=== PATIENT | female | born 1980 | race Caucasian/White ===

== ENCOUNTER 2020-11-28 10:52 | Emergency (ER) | payer OTHER, SELFPAY ==
[2020-11-28] VITALS (19 sets, daily range): BP systolic 103–156; BP diastolic 66–93; PULSE 83–93; RESP 18–19; TEMP 36.6–36.8; O2SAT 97–100; BMI 37.8
--- NOTE | 2020-11-28 11:00 | CT_ITS ---
PROCEDURE: CT HEAD/BRAIN WO CON CLINICAL INDICATION: neuro deficit Left-sided numbness COMPARISON: No exams were available for comparison TECHNIQUE: Axial images obtained. All CT scans at the facility use one or more dose reduction, viz: automated exposure control, ma/kV adjustment per patient size (including targeted exams where dose is matched to indication, i.e. head), or iterative reconstruction technique. FINDINGS: No midline shift, mass effect, intracranial hemorrhage, hydrocephalus, or extra-axial fluid collection is evident. Focal low-density changes are present in the posterior horn of the left internal capsule suggesting lacunar infarction. The calvarium has an unremarkable appearance. No mastoid effusion. There is a retention cyst in the sphenoid sinus on the right with mild mucosal thickening of the left sphenoid sinus. 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
--- NOTE | 2020-11-28 11:01 | HMH.EDNEU ---
ED Disposition Clinical Impression: Paresthesia Disposition: Home, Self-Care Condition on Discharge: Good Referrals: Brenna Bains [Primary Care Provider] - 3 days Time of Disposition: 14:44 - Critical Care Critical Care Time: No Attestation: On , the high probability of a clinically significant, sudden or life threatening deterioration of the following system(s) required my full and direct attention, intervention and personal management. The time I documented below is in addition to time spent performing reported procedures but includes the following listed in this critical care notation. Medical Decision Making - Bertin Inquiry Pt receiving controlled substance: No Vital Signs: 11/28/20 10:53 11/28/20 11:28 11/28/20 11:30 Temperature 97.8 F Temperature Source Oral Pulse Rate [Left Radial] 93 H Respiratory Rate 18 Blood Pressure 119/68 Blood Pressure [Right Arm] 156/91 H Blood Pressure Mean 88 Blood Pressure Mean [Right Arm] 112 Blood Pressure Source [Right Arm] Automatic Cuff Blood Pressure Position [Right Arm] Sitting 02 Sat by Pulse Oximetry 98 99 99 Oxygen Delivery Method Room Air 11/28/20 11:45 11/28/20 12:00 11/28/20 12:01 Temperature Temperature Source Pulse Rate [Left Radial] Respiratory Rate Blood Pressure 116/70 Blood Pressure [Right Arm] Blood Pressure Mean 87 Blood Pressure Mean [Right Arm] Blood Pressure Source [Right Arm] Blood Pressure Position [Right Arm] 02 Sat by Pulse Oximetry 99 100 100 Oxygen Delivery Method 11/28/20 12:13 11/28/20 12:15 11/28/20 12:30 Temperature Temperature Source Pulse Rate [Left Radial] Respiratory Rate Blood Pressure 133/73 113/79 Blood Pressure [Right Arm] Blood Pressure Mean 93 90 Blood Pressure Mean [Right Arm] Blood Pressure Source [Right Arm] Blood Pressure Position [Right Arm] 02 Sat by Pulse Oximetry 99 97 97 Oxygen Delivery Method 11/28/20 12:45 11/28/20 13:13 11/28/20 13:15 Temperature Temperature Source Pulse Rate [Left Radial] Respiratory Rate Blood Pressure Blood Pressure [Right Arm] Blood Pressure Mean Blood Pressure Mean [Right Arm] Blood Pressure Source [Right Arm] Blood Pressure Position [Right Arm] 02 Sat by Pulse Oximetry 98 100 98 Oxygen Delivery Method 11/28/20 13:30 11/28/20 13:45 11/28/20 14:00 Temperature Temperature Source Pulse Rate [Left Radial] Respiratory Rate Blood Pressure 103/66 L 114/67 Blood Pressure [Right Arm] Blood Pressure Mean 79 87 Blood Pressure Mean [Right Arm] Blood Pressure Source [Right Arm] Blood Pressure Position [Right Arm] 02 Sat by Pulse Oximetry 99 98 98 Oxygen Delivery Method 11/28/20 14:15 Temperature Temperature Source Pulse Rate [Left Radial] Respiratory Rate Blood Pressure Blood Pressure [Right Arm] Blood Pressure Mean Blood Pressure Mean [Right Arm] Blood Pressure Source [Right Arm] Blood Pressure Position [Right Arm] 02 Sat by Pulse Oximetry 99 Oxygen Delivery Method - Lab Data Lab results reviewed: Yes: I reviewed the patient's lab results. Lab Results 11/28/20 11:05: WBC 10.3, RBC 4.41, Hgb 13.2, Hct 40.9, MCV 92.8, MCH 29.8, MCHC 32.2, RDW 13.8, Plt Count 370, MPV 7.2 L, Neut % (Auto) 63.7, Lymph % (Auto) 28.2, [place] % (Auto) 5.2, Eos % (Auto) 2.5, Baso % (Auto) 0.5, Neut # (Auto) 6.6, Lymph # (Auto) 2.9, [place] # (Auto) 0.5, Eos # (Auto) 0.3, Baso # (Auto) 0.1 11/28/20 11:05: Sodium 138, Potassium 4.3, Chloride 108 H, Carbon Dioxide 24, Anion Gap 10.3, BUN 11, Creatinine 1.10 H, Estimated Creat Clear 108, Estimated GFR 55 L, Est GFR ( Amer) 67, Glucose 83, Calcium 9.2, Total Bilirubin 0.5, AST 22, ALT 11 L, Alkaline Phosphatase 108, Troponin I < 0.01, Total Protein 7.5, Albumin 4.2, Globulin 3.3 H, Albumin/Globulin Ratio 1.3 11/28/20 12:10: Urine Color Yellow, Urine Appearance Sl cloudy, Urine pH 7.
--- NOTE | 2020-11-28 11:18 | PC.NURSE ---
Patient to ct
[2020-11-28 11:20] LABS: Basophils # 0.1 K/mm3 (0-0.2); Basophils % 0.5 % (0.1-2.0); Eosinophils # 0.3 K/mm3 (0.0-0.4); Eosinophils % 2.5 % (0.1-12.0); Hematocrit 40.9 % (37.0-47.0); Hemoglobin 13.2 g/dL (12.2-16.2); Lymphocytes # 2.9 K/mm3 (0.7-4.5); Lymphocytes % 28.2 % (10-50); Mean Corpuscular HGB Conc 32.2 g/dL (31.8-35.4); Mean Corpuscular Hemoglobin 29.8 pg (27.0-31.2); Mean Corpuscular Volume 92.8 fl (81-99); Mean Platelet Volume 7.2 fl (7.4-10.4); Monocytes # 0.5 K/mm3 (0.1-1.0); Monocytes % 5.2 % (1.7-9.3); Neutrophils # 6.6 K/mm3 (1.8-7.8); Neutrophils % 63.7 % (37.0-80.0); Platelet Count 370 K/mm3 (142-424); Red Blood Count 4.41 M/mm3 (4.20-5.40); Red Cell Distribution Width 13.8 % (11.5-17.5); White Blood Count 10.3 K/mm3 (4.8-10.8)
[2020-11-28 11:26] LABS: Alanine Aminotransferase 11 U/L (12-78); Albumin Level 4.2 g/dl (3.5-5.0); Albumin/Globulin Ratio 1.3 (1.1-1.8); Alkaline Phosphatase 108 U/L (38-126); Anion Gap 10.3 mEq/L (5-15); Aspartate Amino Transferase 22 U/L (14-36); Bilirubin,Total 0.5 mg/dl (0.2-1.3); Blood Urea Nitrogen 11 mg/dl (7-17); Calcium 9.2 mg/dl (8.4-10.2); Carbon Dioxide 24 mmol/L (22.0-30.0); Chloride 108 mmol/L (98-107); Creatinine Clearance Estimated 108 mL/min (50-200); Estimated Glomerular Filt Rate 55 ml/min (>60); GFR (African American) 67 ML/MIN (>60); Globulin 3.3 g/dL (1.3-3.2); Glucose 83 mg/dl (74-100); Potassium 4.3 mmoL/L (3.5-5.1); Sodium 138 mmol/L (136-145); Total Protein,Serum 7.5 g/dl (6.3-8.2)
--- NOTE | 2020-11-28 11:29 | ECG_ITS ---
APPROVED REPORT Exam: Resting ECG HR:81 bpm ECG Measurements Heart Rate 81 AXES MN 138 P 75 QRSd 88 QRS 64 QT 366 T 53 QTc 425 Conclusion Normal sinus rhythm Normal ECG Electronically signed by : Pedro Crews, 11/29/2020 19:39:39
[2020-11-28 11:38] LABS: Troponin I < 0.01 ng/ml (0.00-0.034)
--- NOTE | 2020-11-28 12:06 | CT_ITS ---
Procedure: CT ANGIO NECK CLINICAL HISTORY: neuro deficit Left-sided numbness COMPARISON: CT CT ANGIO HEAD from 11/28/2020 TECHNIQUE: IV Contrast: 100ml Isovue 370 Axial images obtained with sagittal and coronal reformats. All CT scans at the facility use one or more dose reduction, viz: automated exposure control, ma/kV adjustment per patient size (including targeted exams where dose is matched to indication, i.e. head), or iterative reconstruction technique. FINDINGS: CTA neck: The aortic arch and great vessels have an unremarkable appearance. Right common carotid artery is unremarkable. There is a kink with tortuosity in the mid aspect of the right internal carotid artery at the C2 level. This is of questionable clinical significance. No evidence of dissection cannot. The degree of narrowing here is felt to be greater than 50 percent with some poststenotic dilatation. The left common carotid is unremarkable. There is some tortuosity of the left internal carotid also with some kinking proximally but no significant stenosis or poststenotic dilatation. 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 The right vertebral artery is somewhat small as well. No evidence of vertebral dissection. CT angio head: No aneurysm, arteriovenous malformation, dissection, or AVM apparent. There is a persistent origin of the right posterior cerebral artery as a normal variant. There is a 1.4 cm hypodense nodule in the right lobe of the thyroid gland. Scattered small cervical lymph nodes are present. Sebaceous cyst is present along the angle of the mandible on the right at 11 mm. There is a retention cyst in the left maxillary sinus. No enhancing lesions are evident. No evidence of sinus thrombosis IMPRESSION: 1. Tortuosity with kinking of the right internal carotid artery at the C2 level causing at least 50 percent stenosis with mild poststenotic dilatation. This is of questionable clinical significance. No atheromatous plaque evident. No dissection. There is mild kinking of the left internal carotid artery without significant stenosis. 2. No aneurysm AVM or intracranial occlusive process. 3. 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 Dictated by: Ramakrishna Yanes MD 11/28/2020 13:50 Ramakrishna Yanes MD in [facility] 11/28/2020 13:50
--- NOTE | 2020-11-28 12:08 | PC.NURSE ---
Patient ambulated to and from bathroom at this time without difficulty.
[2020-11-28 12:22] LABS: Microscopic, Urine URINE MICROSCOPIC (MICROSCOPIC)
[2020-11-28 12:26] LABS: Appearance,Urine SL CLOUDY (Clear); Bilirubin,Urine Negative (Negative); Blood, Urine 3+ (Negative); Color,Urine YELLOW (Yellow); Glucose,Urine (UA) Negative (Negative); Ketones,Urine Negative (Negative); Leukocyte Esterase,Urine TRACE (Negative); Nitrate,Urine Negative (Negative); Protein,Urine Negative (Negative); Urobilinogen,Urine 0.2 EU/dl (0.2)
[2020-11-28 12:37] LABS: Bacteria,Urine 3+ /lpf; RBC,Urine Occasional #/hpf (0-3)
--- NOTE | 2020-11-28 12:53 | PC.NURSE ---
Patient back to ct at this time.
--- NOTE | 2020-11-28 13:12 | PC.NURSE ---
Patient back from ct at this time.
--- NOTE | 2020-11-28 14:28 | PC.NURSE ---
MD at bedside discussing care.
[2021-02-27 12:20] LABS: POC Glucose,Bedside 75 (70-110)
== END 2020-11-28 14:50 | disposition home or self-care (01) ==
PROVIDERS: Emergency Provider Family Medicine; PCP Nurse Practitioner Family
DX: R20.2 Paresthesia of skin (principal); R20.0 Anesthesia of skin; R51.9 Headache, unspecified; F17.210 Nicotine dependence, cigarettes, uncomplicated
CPT/HCPCS: 70450; 70496; 70498; 80053; 81001; 82962; 84484; 85025; 87086; 87088; 87186; 93005; 99283; Q9967

== ENCOUNTER 2020-12-06 13:44 | Outpatient (RCR) | payer OTHER, SELFPAY | END 2021-01-10 08:56 | disposition home or self-care (01) | LOC: OT 13:44 | PROVIDERS: PCP Nurse Practitioner Family; Visit Provider Nurse Practitioner Family | DX: I63.9 Cerebral infarction, unspecified (principal) | CPT/HCPCS: 97165 ==

== ENCOUNTER 2021-03-07 19:34 | Emergency (ER) | payer OTHER, SELFPAY ==
[2021-03-07] VITALS (7 sets, daily range): BP systolic 114–161; BP diastolic 78–97; PULSE 73–103; RESP 13–21; TEMP 36.5–36.6; O2SAT 96–99; BMI 37.8
--- NOTE | 2021-03-07 19:44 | ECG_ITS ---
APPROVED REPORT Exam: Resting ECG HR:98 bpm ECG Measurements Heart Rate 98 AXES ND 130 P 48 QRSd 84 QRS 30 QT 356 T 49 QTc 454 Conclusion Normal sinus rhythm Nonspecific ST abnormality Abnormal ECG Electronically signed by : Pedro Crews, 03/08/2021 17:37:53
--- NOTE | 2021-03-07 20:00 | CT_ITS ---
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 Radiation optimization: All CT scans at this facility use at least one of these dose optimization techniques: automated exposure control; mA and/or kV adjustment per patient size (includes targeted exams where dose is matched to clinical indication); or iterative reconstruction. COMPARISON: 1. CT HEAD/BRAIN WO CON 11/28/2020 11:[address] ANGIO HEAD 11/28/2020 12:58 PM FINDINGS: Normal appearing brain parenchyma without intraparenchymal hemorrhage and normal faustin-white matter differentiation/no obvious acute ischemic stroke. No intra-or extra-axial fluid collection, no supra-or infratentorial mass, no mass effect or midline shift. . Ventricles, sulci and basal cisterns are normal in size without hydrocephalus. Skull bones are normal. Mild sinonasal mucoperiosteal thickening. No mastoid effusion. IMPRESSION: No evidence of an acute intracranial hemorrhage, mass lesion or obvious acute ischemic infarction. COMMENTS: Recommend followup with MRI if persistent/new or worsening symptoms.
--- NOTE | 2021-03-07 20:04 | XR_ITS ---
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 Views: 2 views. COMPARISON: No relevant prior studies available. FINDINGS: Unremarkable appearing lungs and mediastinum. No effusion or pneumothorax. Cardiomediastinal silhouette is normal. IMPRESSION: No active lung parenchymal lesion.
--- NOTE | 2021-03-07 20:04 | CT_ITS ---
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 3D rendering (Not supervised by radiologist): MIP and/or 3D reconstructed images were created by the technologist. Radiation optimization: All CT scans at this facility use at least one of these dose optimization techniques: automated exposure control; mA and/or kV adjustment per patient size (includes targeted exams where dose is matched to clinical indication); or iterative reconstruction. Contrast material: ISOVUE 370; Contrast volume: 70 ml; Contrast route: INTRAVENOUS (IV); COMPARISON: No relevant prior studies available. FINDINGS: CT ANGIOGRAM: Suboptimal study due to extensive respiratory/cardiac motion. The main, right, and left pulmonary arteries and their visualized central branches show normal enhancement. No thoracic aortic aneurysm or dissection. . LUNGS/PLEURA: No focal area of consolidation and no lung mass. No obstructive endobronchial mass or abnormality. No pleural effusion or pneumothorax. . MEDIASTINUM: Heart size is normal, no pericardial effusion. Calcific granulomatous LEFT hilar lymph nodes. Normal size and mildly enlarged likely reactive axillary lymph nodes. . OTHER STRUCTURES: Small hiatal hernia with wall thickening of the distal thoracic esophagus suggestive of esophagitis/reflux. Mild degenerative changes in the visualized spine. IMPRESSION: 1. Suboptimal study without evidence of acute central pulmonary thromboembolism. 2. Unremarkable lungs and mediastinum without consolidation or effusion. 3. Other nonemergent/incidental findings as described.
[2021-03-07 20:11] LABS: Basophils # 0.1 K/mm3 (0-0.2); Basophils % 0.6 % (0.1-2.0); Eosinophils # 0.4 K/mm3 (0.0-0.4); Eosinophils % 3.3 % (0.1-12.0); Hematocrit 41.5 % (37.0-47.0); Hemoglobin 13.8 g/dL (12.2-16.2); Lymphocytes # 3.4 K/mm3 (0.7-4.5); Lymphocytes % 27.7 % (10-50); Mean Corpuscular HGB Conc 33.3 g/dL (31.8-35.4); Mean Corpuscular Hemoglobin 30.3 pg (27.0-31.2); Mean Corpuscular Volume 91.1 fl (81-99); Mean Platelet Volume 7.1 fl (7.4-10.4); Monocytes # 0.8 K/mm3 (0.1-1.0); Neutrophils # 7.8 K/mm3 (1.8-7.8); Neutrophils % 62.5 % (37.0-80.0); Platelet Count 395 K/mm3 (142-424); Red Blood Count 4.56 M/mm3 (4.20-5.40); Red Cell Distribution Width 13.1 % (11.5-17.5); White Blood Count 12.5 K/mm3 (4.8-10.8)
[2021-03-07 20:18] LABS: Alanine Aminotransferase 14 U/L (12-78); Albumin Level 4.5 g/dl (3.5-5.0); Alkaline Phosphatase 114 U/L (38-126); Anion Gap 12.3 mEq/L (5-15); Aspartate Amino Transferase 20 U/L (14-36); Bilirubin,Direct 0.3 mg/dl (0.0-0.4); Bilirubin,Indirect 0.2 mg/dL (0.0-0.9); Bilirubin,Total 0.5 mg/dl (0.2-1.3); Bilirubin,Unconjugated 0.3 mg/dL (0.0-1.1); Blood Urea Nitrogen 10 mg/dl (7-17); Calcium 9.3 mg/dl (8.4-10.2); Carbon Dioxide 31 mmol/L (22.0-30.0); Chloride 101 mmol/L (98-107); Creatinine Clearance Estimated 132 mL/min (50-200); Estimated Glomerular Filt Rate 70 ml/min (>60); GFR (African American) 84 ML/MIN (>60); Glucose 80 mg/dl (74-100); Potassium 4.3 mmoL/L (3.5-5.1); Sodium 140 mmol/L (136-145); Total Protein,Serum 7.9 g/dl (6.3-8.2)
[2021-03-07 20:23] LABS: C-Reactive Protein 20.6 mg/L (0-4)
[2021-03-07 20:33] LABS: Troponin I < 0.01 ng/ml (0.00-0.034)
[2021-03-07 20:37] LABS: Procalcitonin 0.063 ng/mL (0.0-2.0)
[2021-03-07 20:44] LABS: Erythrocyte Sedimentation Rate 22 mm/hr (0-20)
[2021-03-07 20:50] LABS: HCG Qualitative, Serum Negative (Negative)
--- NOTE | 2021-03-07 20:58 | [facility]H.EDNEU ---
ED Disposition Clinical Impression: Numbness and tingling of right lower extremity Disposition: Home, Self-Care Condition on Discharge: Good Instructions: DI for Numbness/Tingling Additional Instructions: call pcp and dr rand in am Referrals: Brenna Bains [Primary Care Provider] - Latisha Rand MD [Staff Physician] - - Critical Care Critical Care Time: No Attestation: On 03/07/21, the high probability of a clinically significant, sudden or life threatening deterioration of the following system(s) required my full and direct attention, intervention and personal management. The time I documented below is in addition to time spent performing reported procedures but includes the following listed in this critical care notation. Medical Decision Making - Medical Records Medical records reviewed: Yes: I reviewed the patient's medical records. - Bertin Inquiry Pt receiving controlled substance: No Vital Signs: 03/07/21 19:35 03/07/21 20:00 03/07/21 20:45 Temperature 97.7 F Temperature Source Oral Pulse Rate 103 H 86 Pulse Rate [Left Radial] 98 H Respiratory Rate 14 21 Blood Pressure 161/95 H 127/82 Blood Pressure [Right Arm] 143/84 H Blood Pressure Mean [Right Arm] 103 Blood Pressure Source [Right Arm] Automatic Cuff Blood Pressure Position [Right Arm] Sitting 02 Sat by Pulse Oximetry 97 96 97 Oxygen Delivery Method Room Air 03/07/21 21:00 Temperature Temperature Source Pulse Rate 89 Pulse Rate [Left Radial] Respiratory Rate 16 Blood Pressure 128/83 Blood Pressure [Right Arm] Blood Pressure Mean [Right Arm] Blood Pressure Source [Right Arm] Blood Pressure Position [Right Arm] 02 Sat by Pulse Oximetry 97 Oxygen Delivery Method - Lab Data Lab results reviewed: Yes: I reviewed the patient's lab results. Lab Results 03/07/21 20:03: WBC 12.5 H, RBC 4.56, Hgb 13.8, Hct 41.5, MCV 91.1, MCH 30.3, MCHC 33.3, RDW 13.1, Plt Count 395, MPV 7.1 L, Neut % (Auto) 62.5, Lymph % (Auto) 27.7, [place] % (Auto) 6.0, Eos % (Auto) 3.3, Baso % (Auto) 0.6, Neut # (Auto) 7.8, Lymph # (Auto) 3.4, [place] # (Auto) 0.8, Eos # (Auto) 0.4, Baso # (Auto) 0.1 03/07/21 20:03: Sodium 140, Potassium 4.3, Chloride 101, Carbon Dioxide 31 H, Anion Gap 12.3, BUN 10, Creatinine 0.90, Estimated Creat Clear 132, Estimated GFR 70, Est GFR ( Amer) 84, Glucose 80, Calcium 9.3, Total Bilirubin 0.5, Direct Bilirubin 0.3, Conjugated Bilirubin 0.0, Indirect Bilirubin 0.2, Unconjugated Bilirubin 0.3, AST 20, ALT 14, Alkaline Phosphatase 114, Troponin I < 0.01, C-Reactive Protein 20.6 H, Total Protein 7.9, Albumin 4.5 03/07/21 20:03: Serum HCG, Qual Negative 03/07/21 20:03: ESR 22 H 03/07/21 20:03: Procalcitonin 0.063 Result diagrams: 03/07/21 20:03 03/07/21 20:03 Orders (Tests/Meds): ED MEDICATIONS Discontinued Medications Generic Name Dose Route Start Last Admin Trade Name Freq PRN Reason Stop Dose Admin Iopamidol 70 ml 03/07/21 20:30 03/07/21 20:31 Iopamidol-370 (76%);100ml Bottle IV 03/07/21 20:31 70 ml ONCE ONE Administration Sodium Chloride 40 ml 03/07/21 20:30 03/07/21 20:31 0.9 % Sodium Chloride 50 Ml Vial IV 03/07/21 20:31 40 ml ONCE ONE Administration Sodium Chloride 10 ml 03/07/21 20:30 03/07/21 20:31 Sodium Chloride 0.9% 10ml Syr (Rad Only) IV 03/07/21 20:31 10 ml ONCE ONE Administration ORDERS Category Date Time Status Troponin I Q3H Lab 03/07/21 23:15 Ordered Troponin I Q3H Lab 03/08/21 02:15 Ordered - Radiology Data #1 Image(s): Chest Image Reviewed: Yes I reviewed the patient's radiology image Preliminary Findings: Normal/NAD - CT Data CT Scan: Head, Chest Time Received: 22:[address] Reviewed: Yes: I have viewed the radiologist's interpretation Preliminary Findings: Normal/NAD - Physician Consults Physician Consulted: nash - neuro Reason -: Pt condition Medical Decision Narrative: has complex neuro sx and need n
== END 2021-03-07 22:31 | disposition home or self-care (01) ==
PROVIDERS: Emergency Provider Emergency Medicine; PCP Nurse Practitioner Family
DX: R20.2 Paresthesia of skin (principal); R20.0 Anesthesia of skin; R51.9 Headache, unspecified; F17.210 Nicotine dependence, cigarettes, uncomplicated
CPT/HCPCS: 70450; 71046; 71275; 80048; 80076; 84145; 84484; 84703; 85025; 85651; 86140; 93005; 96374; 96375; 99282; Q9967

== ENCOUNTER → 2021-03-09 10:40 | Outpatient (CLI) | payer OTHER, SELFPAY ==
[2021-03-09 11:52] LABS: T4 (Thyroxine) 9.3 ug/dl (5.53-11.0)
[2021-03-09 12:06] LABS: Thyroid Stimulating Hormone 3.85 uIU/mL (0.465-4.68)
[2021-03-09 12:41] LABS: Vitamin B12 200 pg/mL (239-931)
[2021-03-09 12:46] LABS: Folate 5.29 ng/mL
[2021-03-10 11:23] LABS: Triiodothyronine (T3) Free 3.2 pg/mL (2.0-4.4)
[2021-03-13 10:12] LABS: Zinc 79 ug/dL (44-115)
== END ==
PROVIDERS: Visit Provider Specialist
DX: E04.9 Nontoxic goiter, unspecified (principal); R63.5 Abnormal weight gain; L80 Vitiligo; M54.2 Cervicalgia; R20.0 Anesthesia of skin; R20.2 Paresthesia of skin; R29.2 Abnormal reflex; R51.9 Headache, unspecified
CPT/HCPCS: 82525; 82607; 82746; 84436; 84443; 84481; 84630

== ENCOUNTER → 2021-03-13 11:51 | Outpatient (CLI) | payer OTHER, SELFPAY ==
[2021-03-14 14:33] LABS: Antiparietal Cell Antibody 1.5 Units (0.0-20.0)
== END ==
PROVIDERS: Visit Provider Specialist
DX: E53.8 Deficiency of other specified B group vitamins (principal); R51.9 Headache, unspecified; R20.0 Anesthesia of skin; R20.2 Paresthesia of skin
CPT/HCPCS: 36415; 83516; 86340

== ENCOUNTER → 2021-03-20 07:43 | Outpatient (CLI) | payer OTHER, SELFPAY ==
--- NOTE | 2021-03-20 07:43 | MR_ITS ---
PROCEDURE: MR CERVICAL SPINE WO CON CLINICAL INDICATION: neck pain, brisk reflexes Headaches. Bilateral arm tingling/numbness COMPARISON: No exams were available for comparison TECHNIQUE: Standard multiplanar multiecho sequences are performed without contrast. 3-D MIP and myelographic images are also rendered and reviewed FINDINGS: There is considerable motion artifact which limits the exam and obscures fine detail. There is slight reversal of the cervical lordosis. C2-C3: Unremarkable. C3-C4: Minimal bulging disc with mild right foraminal narrowing from uncovertebral hypertrophy. C4-C5: Mild bulging disc with mild right-sided foraminal narrowing from uncovertebral hypertrophy. There is narrowing of the canal at this level at 10 mm but no cord impingement. C5-C6: Unremarkable. C6-C7: Unremarkable. IMPRESSION: Considerable motion artifact which limits this exam. Consider repeating at no additional charge for better evaluation. C3-C4: Minimal bulging disc with mild right foraminal narrowing from uncovertebral hypertrophy. C4-C5: Mild bulging disc with mild right-sided foraminal narrowing from uncovertebral hypertrophy. There is narrowing of the canal at this level at 10 mm but no cord impingement. No obvious disc herniation. Dictated by: Ramakrishna Yanes MD 03/21/2021 09:42 Ramakrishna Yanes MD in [facility] 03/21/2021 09:42
--- NOTE | 2021-03-20 07:44 | MR_ITS ---
PROCEDURE: MR HEAD/BRAIN WO CON CLINICAL INDICATION: CEREBRAL INFARCTION Headaches. Dizziness. Tremors. Unbalanced. CVA in November. COMPARISON: CT CT HEAD/BRAIN WO CON from 03/07/2021 TECHNIQUE: Routine multiplanar multi echo sequences are performed without gadolinium enhancement. FINDINGS: No midline shift, mass effect, intracranial hemorrhage, or hydrocephalus is evident. No areas of restricted diffusion that would indicate an acute infarction. The cerebellopontine angles, cerebellum, midbrain, and brainstem have an unremarkable appearance. A small nonspecific T2 hyperintensity is present in the white matter in the right frontal area. This is of questionable clinical significance. The white matter has an otherwise unremarkable appearance. The pituitary, optic chiasm, corpus callosum, and craniocervical junction have an unremarkable appearance. Hippocampal gyri and temporal horns have an unremarkable appearance There is opacification of the right sphenoid sinus posteriorly and may represent a retention cyst at 1 cm with mucosal thickening of the inferior aspect of the sphenoid sinus. 15 mm retention cyst noted in the left maxillary sinus. No mastoid effusion. IMPRESSION: No acute intracranial findings. Nonspecific small T2 white matter hyperintensity in the right frontal lobe approximately 3 x 1 mm suggesting a small gliotic focus. Sinus disease Dictated by: Ramakrishna Yanes MD 03/21/2021 09:02 Ramakrishna Yanes MD in [facility] 03/21/2021 09:02
--- NOTE | 2021-03-20 09:33 | US_ITS ---
PROCEDURE: US THYROID CLINICAL INDICATION: enlarged thyroid COMPARISON: No exams were available for comparison FINDINGS: Right lobe: 4.5 x 1.4 x 2.1 cm. 2 mm cyst is present in the mid polar region. In the mid pole there is a 1 by 1.6 cm slightly hypoechoic nodule with increased echogenicity some of the center. The nodule is wider than tall and is well-circumscribed without calcifications. Left lobe: 4.6 x 1.5 x 1.9 cm. Well-circumscribed 5 mm hypoechoic nodule upper pole Isthmus: Unremarkable Additional findings: IMPRESSION: Mildly prominent thyroid gland with 2 nodules on the right and 1 on the left. The largest nodule on the right is TR level 3 less than 2.5 cm. Recommend annual follow-up Dictated by: Ramakrishna Yanes MD 03/20/2021 16:07 Ramakrishna Yanes MD in [facility] 03/20/2021 16:07
== END ==
PROVIDERS: PCP Nurse Practitioner Family; Visit Provider Specialist
DX: R51.9 Headache, unspecified (principal); M54.2 Cervicalgia; E04.9 Nontoxic goiter, unspecified; L80 Vitiligo; R20.0 Anesthesia of skin; R20.2 Paresthesia of skin; R29.2 Abnormal reflex
CPT/HCPCS: 70551; 72141; 76376; 76536

== ENCOUNTER → 2021-03-22 10:43 | Outpatient (CLI) | payer OTHER, SELFPAY | PROVIDERS: PCP Nurse Practitioner Family; Visit Provider Nurse Practitioner Family | DX: M54.2 Cervicalgia (principal) ==

== ENCOUNTER → 2021-04-05 09:23 | Outpatient (CLI) | payer OTHER, SELFPAY ==
--- NOTE | 2021-04-05 09:23 | MR_ITS ---
PROCEDURE INFORMATION: Exam: MR Thoracic Spine Without Contrast Exam date and time: 04/05/2021 9:23 AM Age: 40 years old Clinical indication: Pain in thoracic spine; Additional info: Gait disturbance, lower extremity numbness. Headache, tremors, body numbness x1yr. Imbalance. Back pain. No prior. TECHNIQUE: Imaging protocol: Multiplanar magnetic resonance images of the thoracic spine without contrast. COMPARISON: MR CERVICAL SPINE WO CON 03/20/2021 8:01 AM FINDINGS: Vertebrae: T9 vertebral body hemangiomas. No acute fracture or malalignment. Spinal cord: Normal signal. No cord compression. Discs/Spinal canal/Neural foramina: Minimal posterior disc bulges at the T6-7 through T11-12 levels, causing minimal ventral thecal sac indentation. No central canal narrowing. Soft tissues: Unremarkable. IMPRESSION: No acute fracture or malalignment.
== END ==
PROVIDERS: PCP Nurse Practitioner Family; Visit Provider Specialist
DX: R20.0 Anesthesia of skin (principal); R20.2 Paresthesia of skin; R26.0 Ataxic gait; R26.89 Other abnormalities of gait and mobility; R29.2 Abnormal reflex; R29.90 Unspecified symptoms and signs involving the nervous system
CPT/HCPCS: 72146

== ENCOUNTER → 2021-06-02 08:10 | Outpatient (CLI) | payer OTHER, SELFPAY ==
--- NOTE | 2021-06-02 08:18 | XR_ITS ---
PROCEDURE: XR CHEST 2V CLINICAL HISTORY: RESPIRATORY DISORDER COMPARISON: CR CXR CHEST(2 VIEWS-NOT PORTABLE) from 01/24/2016 CR XR CHEST 2V from 03/07/[address] ANGIO CHEST from 03/07/2021 FINDINGS: Borderline cardiomegaly without failure. Small implantable cardiac device noted between the right and left atrium. No evidence of CHF. The lungs are clear without infiltrates, suspicious nodules, or pleural effusions. No acute bony abnormalities. IMPRESSION: No change with no acute finding Dictated by: Ramakrishna Yanes MD 06/02/2021 09:46 Ramakrishna Yanes MD in [facility] 06/02/2021 09:46
== END ==
LOC: LAB 08:11 → RAD 08:13
PROVIDERS: Visit Provider Nurse Practitioner Family
DX: Z13.83 Encounter for screening for respiratory disorder NEC (principal)
CPT/HCPCS: 71046

== ENCOUNTER → 2021-06-05 08:08 | Outpatient (CLI) | payer OTHER, SELFPAY ==
[2021-06-09 00:07] LABS: QuantiFERON-TB Gold Plus Negative (Negative)
== END ==
PROVIDERS: Visit Provider Nurse Practitioner Family
DX: Z13.83 Encounter for screening for respiratory disorder NEC (principal)
CPT/HCPCS: 36415; 86480

== ENCOUNTER → 2021-06-29 13:07 | Outpatient (CLI) | payer OTHER, SELFPAY ==
--- NOTE | 2021-06-29 | XR_ITS ---
PROCEDURE: XR KNEE RT 3V CLINICAL INDICATION: PAIN IN RIGHT KNEE COMPARISON: No exams were available for comparison FINDINGS: No fracture or dislocation. No lytic or blastic change. There is normal mineralization. The joint spaces are well-preserved. No significant degenerative/arthritic changes. No erosive changes evident. Other findings:None. IMPRESSION: No acute findings. Dictated by: Ramakrishna Yanes MD 06/29/2021 15:01 Ramakrishna Yanes MD in [facility] 06/29/2021 15:01
--- NOTE | 2021-06-29 13:09 | MR_ITS ---
PROCEDURE: MR LUMBAR SPINE WO CON CLINICAL INDICATION: SPINAL STENOSIS Bilateral leg numbness and tingling to the feet COMPARISON: CT ABDPELW/O CT ABD PELVIS W/O CONTRAST from 01/24/2016 MR MR THORACIC SPINE WO CON from 04/05/2021 TECHNIQUE: Standard multiplanar multiecho sequences are performed without contrast. 3-D MIP and myelographic images are also rendered and reviewed FINDINGS: There is normal alignment. The spinal cord ends at the T12-L1 level. T11-T12: Mild degenerative disc disease with very minimal right paracentral disc protrusion without impingement. Mild right lateral recess narrowing. T12-L1: Unremarkable. L1-L2: Unremarkable. L2-L3: Mild facet and ligamentum hypertrophic change with minimal bilateral lateral recess narrowing. L3-L4: Mild facet and ligamentum hypertrophy. Minimal amount of fluid noted in the facet joint on the right. L4-5: Disc desiccation with bulging disc with minimal left paracentral disc protrusion. Moderate facet and ligamentum hypertrophic change with bilateral lateral recess narrowing left slightly greater than right and mild bilateral foraminal narrowing. Borderline canal stenosis. L5-S1: Minimal bulging disc with facet and ligamentum hypertrophic change with mild bilateral foraminal narrowing. Canal stenosis of 10 mm at this level. No extruded herniated disc. No fracture or dislocation. No bony destructive process evident. Subcutaneous edema noted in the upper lumbar region. IMPRESSION: 1. T11-T12: Mild degenerative disc disease with very minimal right paracentral disc protrusion without impingement. Mild right lateral recess narrowing. 2. L2-L3: Mild facet and ligamentum hypertrophic change with minimal bilateral lateral recess narrowing. The 3. L3-L4: Mild facet and ligamentum hypertrophy. Minimal amount of fluid noted in the facet joint on the right. 4. L4-5: Disc desiccation with bulging disc with minimal left paracentral disc protrusion. Moderate facet and ligamentum hypertrophic change with bilateral lateral recess narrowing left slightly greater than right and mild bilateral foraminal narrowing. Borderline canal stenosis. 5. L5-S1: Minimal bulging disc with facet and ligamentum hypertrophic change with mild bilateral foraminal narrowing. Canal stenosis of 10 mm at this level 6. No extruded herniated disc apparent. Dictated by: Ramakrishna Yanes MD 06/30/2021 08:39 Ramakrishna Yanes MD in [place] 06/30/2021 08:39
== END ==
PROVIDERS: PCP Nurse Practitioner Family; Visit Provider Psychiatry & Neurology Clinical Neurophysiology
DX: M48.061 Spinal stenosis, lumbar region without neurogenic claudication (principal); M25.561 Pain in right knee
CPT/HCPCS: 72148; 73562; 76376

== ENCOUNTER 2021-07-20 08:00 | Outpatient (RCR) | payer OTHER, SELFPAY | END 2021-08-15 16:16 | disposition home or self-care (01) | LOC: PT.CARL 08:00 | PROVIDERS: PCP Nurse Practitioner Family; Visit Provider Psychiatry & Neurology Clinical Neurophysiology | DX: M48.061 Spinal stenosis, lumbar region without neurogenic claudication (principal) | CPT/HCPCS: 97010; 97012; 97014; 97110; 97140; 97163; G0283 ==

== ENCOUNTER → 2021-08-02 09:00 | Outpatient (CLI) | payer OTHER, SELFPAY ==
[2021-08-03 08:14] LABS: FSH 6.7 mIU/mL (.); LH 1.7 mIU/mL (.)
[2021-08-03 15:17] LABS: Anti-Cardio Antibody IgM 12 MPL U/mL (0-12); Anticardiolipin Ab,IgA,Qn <9 APL U/mL (0-11)
== END ==
PROVIDERS: Internal Medicine Hematology & Oncology; Visit Provider Nurse Practitioner Obstetrics & Gynecology
DX: Z01.419 Encounter for gynecological examination (general) (routine) without abnormal findings (principal); D68.61 Antiphospholipid syndrome
CPT/HCPCS: 36415; 83001; 83002; 86147

== ENCOUNTER 2021-10-05 19:25 | Emergency (ER) | payer OTHER, SELFPAY ==
[2021-10-05 20:08] VITALS: BP 136/79; PULSE 78; RESP 20; TEMP 36.7; O2SAT 98; BMI 43.5
--- NOTE | 2021-10-05 20:09 | XR_ITS ---
PROCEDURE INFORMATION: Exam: XR Chest Exam date and time: 10/05/2021 8:09 PM Age: 41 years old Clinical indication: Condition or disease; Other: Patient is covid and flu positive with cough. ; Patient HX: Cough, patient is covid and flu positive. ; Additional info: Cough covid and flu positive TECHNIQUE: Imaging protocol: XR of the chest. Views: 2 views. COMPARISON: CR XR CHEST 2V 06/02/2021 8:21 AM FINDINGS: Lungs: Unremarkable. No consolidation. Pleural spaces: Unremarkable. No pleural effusion. No pneumothorax. Heart/Mediastinum: Unremarkable. No cardiomegaly. Bones/joints: Unremarkable. IMPRESSION: No acute findings.
--- NOTE | 2021-10-05 20:28 | HMH.EDUTC ---
[facility] [place] Disposition Clinical Impression: Influenza, COVID-19 Disposition: Home, Self-Care Condition on Discharge: Good Instructions: Preventing the Spread of Coronavirus Discharge Instructions, DI for COVID-19 (Suspected or Confirmed ), Influenza, DI for Influenza -- Adult Additional Instructions: Drink plenty of fluids. Take tylenol or ibuprofen for pain or fever. Take the medications as directed. Follow up with your regular doctor. GO TO THE ER FOR ANY WORSENING SYMPTOMS The cough medication (promethazine dm) will make you drowsy, so don't drive or operate heavy machinery after taking it. Prescriptions: Promethazine/Dextromethorphan [Promethazine-Dm Syrup] 5 ml PO Q6HP PRN #240 ml PRN Reason: Cough Transmission Status: Pending to [id number] methylPREDNISolone [Medrol] 4 mg PO DIRECTED 6 Days #21 packet Transmission Status: Pending to [id number] Oseltamivir Phosphate [Tamiflu 75mg Capsule] 75 mg PO BID #10 cap Transmission Status: Pending to [id number] Referrals: Brenna Bains [Primary Care Provider] - Time of Disposition: 21:01 Medical Decision Making - Medical Records Medical records reviewed: No: I reviewed the patient's medical records. - Bertin Inquiry Pt receiving controlled substance: No Vital Signs: 10/05/21 20:08 Temperature 98.1 F Temperature Source Oral Pulse Rate [Left] 78 Respiratory Rate 20 Blood Pressure [Right Arm] 136/79 Blood Pressure Mean [Right Arm] 98 02 Sat by Pulse Oximetry 98 [facility] [place] HPI - General Stated complaint: Covid +, cough,congestion Time Seen by Provider: 10/05/21 20:28 Mode of Arrival: Ambulatory Source of Information: Patient Limitations: No Limitations Description of Symptoms (Recalled from Triage Doc. by RN): PT HAD A POSITIVE FLU B AND COVID TEST YESTERDAY. PT C/O TIGHTNESS WITH A COUGH SINCE THIS AM. HEENT Symptoms (Recalled from RN notes): Yes Resp Symptoms (Recalled from RN notes): Yes Skin Symptoms (Recalled from RN notes): No MS Symptoms (Recalled from RN notes): No Functional Status (Recalled from RN notes): WNL - History of Present Illness Provider Complaint: She tested positive for covid and influenza yesterday. Today, she is having a cough, chest tightness and fever. - Related Data Home Medications Medication Instructions Recorded Confirmed levonorgestrel 20 mcg/24 hours (7 INTRAUTERI each 03/05/19 07/11/21 yrs) 52 mg intrauterine device aspirin 81 mg tablet,delayed 81 mg PO DAILY 03/09/21 07/11/21 release atorvastatin 40 mg tablet 40 mg PO HS tab 03/09/21 07/11/21 citalopram 20 mg tablet 20 mg PO DAILY tab 03/09/21 07/11/21 clopidogrel 75 mg tablet 75 mg PO DAILY tab 03/09/21 07/11/21 gabapentin 300 mg capsule 300 mg PO cap 04/12/21 07/11/21 indomethacin 25 mg capsule 25 mg PO cap 04/12/21 07/11/21 propranolol 40 mg tablet 40 mg PO tab 05/18/21 07/11/21 cetirizine 10 mg tablet 10 mg PO tab 07/11/21 07/11/21 Previous Rx's Medication Instructions Recorded Ondansetron [Zofran 4mg ODT] 4 mg PO Q8HP PRN #20 tab.rapdis 05/10/19 fluticasone propionate 50 2 spray INTRANASAL BID #16 g 04/12/21 mcg/actuation nasal spray,suspension Oseltamivir Phosphate [Tamiflu 75 mg PO BID #10 cap 10/05/21 75mg Capsule] Promethazine/Dextromethorphan 5 ml PO Q6HP PRN #240 ml 10/05/21 [Promethazine-Dm Syrup] methylPREDNISolone [Medrol] 4 mg PO DIRECTED 6 Days #21 10/05/21 packet Allergies Allergy/AdvReac Type Severity Reaction Status Date / Time No Known Allergies Allergy Verified 07/11/21 09:53 - Worker's Comp Is this a Worker's Comp case?: No H History - Hepatitis A Screen Drug use history?: No High risk sexual behaviors?: No History of sexually transmitted infection?: No Currently employed?: No Childcare worker?: No Do you have indoor plumbing?: Yes Do you have electricity?: Yes Attestation statement:: This patient has been screened for Hepatit
[2021-10-05 21:08] VITALS: BP 136/79; PULSE 78; RESP 20; TEMP 36.7
== END 2021-10-05 21:09 | disposition home or self-care (01) ==
PROVIDERS: Emergency Provider Nurse Practitioner Family; PCP Nurse Practitioner Family
DX: J10.1 Influenza due to other identified influenza virus with other respiratory manifestations (principal); U07.1 COVID-19; F41.9 Anxiety disorder, unspecified; E78.5 Hyperlipidemia, unspecified
CPT/HCPCS: 71046; 99202; G0463

== ENCOUNTER 2021-10-11 12:29 | Emergency (ER) | payer OTHER, SELFPAY ==
[2021-10-11 12:31] VITALS: BP 124/52; PULSE 81; RESP 18; TEMP 37.1; O2SAT 100; BMI 37.8
[2021-10-11 13:13] VITALS: BMI 37.8
--- NOTE | 2021-10-11 13:13 | XR_ITS ---
FINAL REPORT CLINICAL HISTORY: covid + weakness, soa COMPARISON: 10/05/2021 FINDINGS: SINGLE VIEW CHEST The heart is normal in size. The mediastinum is unremarkable. An Amplatzer device is seen in projection of the cardiac silhouette. The lungs are clear. There is no pneumothorax. IMPRESSION: No acute cardiopulmonary process. Reviewed, Interpreted and Dictated by Lennox Carey MD Transcribed by Tiana Madden Authenticated by Lennox Carey MD on 10/11/2021 03:50:51 PM [facility]
[2021-10-11 13:26] LABS: Chloride 102 mmol/L (98-107); Potassium 3.6 mmoL/L (3.5-5.1); Sodium 140 mmol/L (136-145)
[2021-10-11 13:27] LABS: Basophils # 0.2 K/mm3 (0-0.2); Basophils % 1.1 % (0.1-2.0); Eosinophils # 0.2 K/mm3 (0.0-0.4); Eosinophils % 1.3 % (0.1-12.0); Hematocrit 42.9 % (37.0-47.0); Lymphocytes # 2.8 K/mm3 (0.7-4.5); Lymphocytes % 21.2 % (10-50); Mean Corpuscular HGB Conc 32.6 g/dL (31.8-35.4); Mean Corpuscular Hemoglobin 31.2 pg (27.0-31.2); Mean Corpuscular Volume 95.7 fl (81-99); Mean Platelet Volume 8.2 fl (7.4-10.4); Monocytes # 0.7 K/mm3 (0.1-1.0); Monocytes % 5.5 % (1.7-9.3); Neutrophils # 9.3 K/mm3 (1.8-7.8); Neutrophils % 70.9 % (37.0-80.0); Platelet Count 368 K/mm3 (142-424); Red Blood Count 4.48 M/mm3 (4.20-5.40); Red Cell Distribution Width 13.9 % (11.5-17.5); White Blood Count 13.1 K/mm3 (4.8-10.8)
[2021-10-11 13:29] LABS: Alanine Aminotransferase 15 U/L (12-78); Albumin Level 4.2 g/dl (3.5-5.0); Albumin/Globulin Ratio 1.5 (1.1-1.8); Alkaline Phosphatase 104 U/L (38-126); Anion Gap 9.6 mEq/L (5-15); Aspartate Amino Transferase 20 U/L (14-36); Bilirubin,Total 0.7 mg/dl (0.2-1.3); Blood Urea Nitrogen 11 mg/dl (7-17); Carbon Dioxide 32 mmol/L (22.0-30.0); Creatinine Clearance Estimated 131 mL/min (50-200); Estimated Glomerular Filt Rate 69 ml/min (>60); GFR (African American) 84 ML/MIN (>60); Globulin 2.8 g/dL (1.3-3.2)
[2021-10-11 13:30] LABS: Calcium 8.8 mg/dl (8.4-10.2); Glucose 98 mg/dl (74-100)
--- NOTE | 2021-10-11 13:35 | HMH.EDGENADL ---
ED Disposition Clinical Impression: COVID-19 virus infection, Influenza B Vomiting Qualifiers: Vomiting type: unspecified Nausea presence: with nausea Qualified Code(s): R11.2 - Nausea with vomiting, unspecified Disposition: Home, Self-Care Condition on Discharge: Fair Instructions: DI for Influenza -- Adult, DI for Vomiting -- Adult, DI for COVID-19 (Suspected or Confirmed ) Additional Instructions: Phenergan suppositories as needed for nausea and vomiting. Rest, drink plenty of fluids. Tylenol or Ibuprofen for fever and/or aches and pains. Monitor your symptoms. IF YOU HAVE AN EMERGENCY WARNING SIGN (INCLUDING TROUBLE BREATHING), SEEK EMERGENCY MEDICAL CARE IMMEDIATELY. COVID-19 Isolation: People with COVID-19 should isolate for 5 days. Then if they are asymptomatic (no symptoms) or their symptoms are resolving (without fever for 24 hours), follow that by 5 days of wearing a mask when around others to minimize the risk of infecting people you encounter. If you test positive for COVID-19 and never develop symptoms, day 0 is the day of your positive viral test (based on the date you were tested) and day 1 is the first full day after your positive test. If you develop symptoms after testing positive, your 5-day isolation period must start over. Day 0 is your first day of symptoms. Day 1 is the first full day after your symptoms developed. What to do: Stay in a separate room from other household members, if possible. Use a separate bathroom, if possible. Avoid contact with other members of the household and pets. Don?t share personal household items, like cups, towels, and utensils. Wear a mask when around other people if able. Prescriptions: Promethazine HCl [Phenergan 25mg Suppository] 25 mg RC Q6HP PRN #10 supp PRN Reason: Nausea And Vomiting Transmission Status: Pending to [facility]/pharmacy #[id number] Referrals: Brenna Bains [Primary Care Provider] - - Critical Care Critical Care Time: No Attestation: On 10/11/21, the high probability of a clinically significant, sudden or life threatening deterioration of the following system(s) required my full and direct attention, intervention and personal management. The time I documented below is in addition to time spent performing reported procedures but includes the following listed in this critical care notation. Medical Decision Making - Medical Records Medical records reviewed: Yes: I reviewed the patient's medical records. MR Comment: Reviewed urgent treatment center visit 10/05/2021, reports that she had tested positive for influenza B and Covid 19 the day prior. Treated with methylprednisolone, Zofran, Phenergan DM - Bertin Inquiry Pt receiving controlled substance: No Vital Signs: 10/11/21 12:31 Temperature 98.8 F Temperature Source Oral Pulse Rate [Left Radial] 81 Respiratory Rate 18 Blood Pressure [Left Arm] 124/52 L Blood Pressure Mean [Left Arm] 76 Blood Pressure Source [Left Arm] Automatic Cuff Blood Pressure Position [Left Arm] Sitting 02 Sat by Pulse Oximetry 100 Oxygen Delivery Method Room Air - Lab Data Lab Results 10/11/21 13:00: WBC 13.1 H, RBC 4.48, Hgb 14.0, Hct 42.9, MCV 95.7, MCH 31.2, MCHC 32.6, RDW 13.9, Plt Count 368, MPV 8.2, Neut % (Auto) 70.9, Lymph % (Auto) 21.2, [place] % (Auto) 5.5, Eos % (Auto) 1.3, Baso % (Auto) 1.1, Neut # (Auto) 9.3 H, Lymph # (Auto) 2.8, [place] # (Auto) 0.7, Eos # (Auto) 0.2, Baso # (Auto) 0.2 10/11/21 13:00: Sodium 140, Potassium 3.6, Chloride 102, Carbon Dioxide 32 H, Anion Gap 9.6, BUN 11, Creatinine 0.90, Estimated Creat Clear 131, Estimated GFR 69, Est GFR ( Amer) 84, Glucose 98, Calcium 8.8, Total Bilirubin 0.7, AST 20, ALT 15, Alkaline Phosphatase 104, Total Protein 7.0, Albumin 4.2, Globulin 2.8, Albumin/Globulin Ratio 1.5 Result diagrams: 10/11/21 13:00 10/11/21 13:00 Orders (Tests/Meds): ED MEDICATIONS Generic Name Dose Route Start Last Admin Trade Name Freq PRN Reason Stop
[2021-10-11 14:53] VITALS: BP 121/72; PULSE 70; RESP 18; TEMP 37.1; O2SAT 100
== END 2021-10-11 14:53 | disposition home or self-care (01) ==
PROVIDERS: Emergency Provider Emergency Medicine; PCP Nurse Practitioner Family
DX: U07.1 COVID-19 (principal); J10.1 Influenza due to other identified influenza virus with other respiratory manifestations; Z87.891 Personal history of nicotine dependence
CPT/HCPCS: 71045; 80053; 85025; 96365; 96375; 99283; J2405

== ENCOUNTER → 2021-11-20 08:10 | Outpatient (CLI) | payer OTHER, SELFPAY ==
--- NOTE | 2021-11-20 08:11 | MM_ITS ---
PROCEDURE INFORMATION: Exam: MG Bilateral Screening 3D Mammography Exam date and time: 11/20/2021 8:11 AM Age: 41 years old Clinical indication: Encounter for screening mammogram for malignant neoplasm of breast TECHNIQUE: Imaging protocol: Bilateral Screening tomosynthesis and 2D mammography including computer-aided detection (CAD) when performed. COMPARISON: No relevant prior studies available. FINDINGS: MAMMOGRAPHY: Breast composition: The breast tissue is composed of scattered areas of fibroglandular density. Mass: None. Architectural distortion: None. Calcifications: No suspicious calcifications. Asymmetric density: None. Skin thickening: None. Axillary adenopathy: None. IMPRESSION: No mammographic evidence of malignancy. Annual screening is recommended unless otherwise clinically indicated. ASSESSMENT: BI-RADS Category 1: Negative
== END ==
PROVIDERS: PCP Nurse Practitioner Family; Visit Provider Nurse Practitioner Obstetrics & Gynecology
DX: Z12.31 Encounter for screening mammogram for malignant neoplasm of breast (principal)
CPT/HCPCS: 77063; 77067

== ENCOUNTER → 2022-03-15 11:23 | Outpatient (CLI) | payer OTHER, SELFPAY ==
[2022-03-15 12:25] LABS: Basophils % 0.3 % (0.1-2.0); Eosinophils # 0.2 K/mm3 (0.0-0.4); Eosinophils % 1.8 % (0.1-12.0); Hematocrit 40.1 % (37.0-47.0); Hemoglobin 13.7 g/dL (12.2-16.2); Lymphocytes # 2.7 K/mm3 (0.7-4.5); Lymphocytes % 27.7 % (10-50); Mean Corpuscular HGB Conc 34.1 g/dL (31.8-35.4); Mean Corpuscular Hemoglobin 31.2 pg (27.0-31.2); Mean Corpuscular Volume 91.3 fl (81-99); Mean Platelet Volume 7.9 fl (7.4-10.4); Monocytes # 0.7 K/mm3 (0.1-1.0); Monocytes % 7.2 % (1.7-9.3); Neutrophils # 6.2 K/mm3 (1.8-7.8); Neutrophils % 63.1 % (37.0-80.0); Platelet Count 353 K/mm3 (142-424); Red Blood Count 4.39 M/mm3 (4.20-5.40); White Blood Count 9.8 K/mm3 (4.8-10.8)
[2022-03-15 12:35] LABS: Prothrombin Time 10.3 seconds (10.1-12.5)
== END ==
PROVIDERS: PCP Nurse Practitioner Family; Visit Provider Psychiatry & Neurology Neurology
DX: R53.1 Weakness (principal)
CPT/HCPCS: 36415; 85025; 85610; 85730

== ENCOUNTER → 2022-08-01 08:06 | Outpatient (CLI) | payer OTHER, SELFPAY ==
[2022-08-01 09:26] LABS: Erythrocyte Sedimentation Rate 17 mm/hr (0-20)
[2022-08-01 09:34] LABS: Chloride 100 mmol/L (98-107); Sodium 142 mmol/L (136-145)
[2022-08-01 09:35] LABS: Potassium 4.4 mmoL/L (3.5-5.1)
[2022-08-01 09:37] LABS: Alanine Aminotransferase 11 U/L (12-78); Albumin Level 4.2 g/dl (3.5-5.0); Albumin/Globulin Ratio 1.6 (1.1-1.8); Alkaline Phosphatase 110 U/L (38-126); Anion Gap 15.4 mEq/L (5-15); Aspartate Amino Transferase 20 U/L (14-36); Bilirubin,Total 0.5 mg/dl (0.2-1.3); Blood Urea Nitrogen 10 mg/dl (7-17); Carbon Dioxide 31 mmol/L (22.0-30.0); Estimated Glomerular Filt Rate 79 ml/min (>60); GFR (African American) 96 ML/MIN (>60); Globulin 2.6 g/dL (1.3-3.2); Total Protein,Serum 6.8 g/dl (6.3-8.2)
[2022-08-01 09:38] LABS: Calcium 9.2 mg/dl (8.4-10.2); Glucose 80 mg/dl (74-100)
[2022-08-01 09:43] LABS: C-Reactive Protein 10.6 mg/L (0-4)
[2022-08-03 11:42] LABS: Antinuclear Antibodies, IFA Negative (.)
== END ==
PROVIDERS: PCP Family Medicine; Visit Provider Psychiatry & Neurology Neurology
DX: G37.9 Demyelinating disease of central nervous system, unspecified (principal)
CPT/HCPCS: 36415; 80053; 85651; 86038; 86140

== ENCOUNTER → 2022-12-24 07:56 | Outpatient (CLI) | payer OTHER, SELFPAY ==
--- NOTE | 2022-12-24 07:56 | MM_ITS ---
PROCEDURE INFORMATION: Exam: MG Bilateral Screening 3D Mammography Exam date and time: 12/24/2022 7:53 AM Age: 42 years old Clinical indication: Screening. A maternal cousin and maternal great aunt had breast cancer. TECHNIQUE: Imaging protocol: Bilateral Screening tomosynthesis and 2D mammography including computer-aided detection (CAD) when performed. COMPARISON: MG MM DIG SCREENING MAMM BI W/CAD 11/20/2021 8:17 AM FINDINGS: MAMMOGRAPHY: Breast composition: There are scattered areas of fibroglandular density. Mass: None. Architectural distortion: None. Calcifications: No suspicious calcifications. Asymmetric density: None. Skin thickening: None. Axillary adenopathy: None. IMPRESSION: No mammographic evidence of malignancy. Annual screening is recommended unless otherwise clinically indicated. ASSESSMENT: BI-RADS Category 1: Negative
[2022-12-24 09:24] LABS: Chloride 104 mmol/L (98-107); Potassium 4.3 mmoL/L (3.5-5.1); Sodium 140 mmol/L (136-145)
[2022-12-24 09:27] LABS: Alanine Aminotransferase 12 U/L (12-78); Albumin Level 4.2 g/dl (3.5-5.0); Albumin/Globulin Ratio 1.6 (1.1-1.8); Alkaline Phosphatase 120 U/L (38-126); Anion Gap 11.3 mEq/L (5-15); Aspartate Amino Transferase 18 U/L (14-36); Bilirubin,Total 0.7 mg/dl (0.2-1.3); Blood Urea Nitrogen 8 mg/dl (7-17); Carbon Dioxide 29 mmol/L (22.0-30.0); Estimated Glomerular Filt Rate 61 ml/min (>60); GFR (African American) 74 ML/MIN (>60); Globulin 2.7 g/dL (1.3-3.2); Total Protein,Serum 6.9 g/dl (6.3-8.2)
[2022-12-24 09:28] LABS: Calcium 8.9 mg/dl (8.4-10.2); Glucose 86 mg/dl (74-100)
[2022-12-24 09:33] LABS: C-Reactive Protein 19.6 mg/L (0-4)
[2022-12-24 10:10] LABS: Erythrocyte Sedimentation Rate 27 mm/hr (0-20)
[2022-12-29 17:31] LABS: Antinuclear Antibodies (ANA) NEGATIVE
== END ==
PROVIDERS: Psychiatry & Neurology Neurology; PCP Nurse Practitioner; Visit Provider Nurse Practitioner Obstetrics & Gynecology
DX: Z12.31 Encounter for screening mammogram for malignant neoplasm of breast (principal); G37.9 Demyelinating disease of central nervous system, unspecified
CPT/HCPCS: 36415; 77063; 77067; 80053; 85651; 86038; 86140

== ENCOUNTER 2023-02-28 08:00 | Outpatient (RCR) | payer OTHER, SELFPAY | END 2023-04-11 14:55 | disposition home or self-care (01) | LOC: PT 08:00 | PROVIDERS: Visit Provider Psychiatry & Neurology Clinical Neurophysiology | DX: M51.36 Other intervertebral disc degeneration, lumbar region (principal) | CPT/HCPCS: 97010; 97014; 97110; 97112; 97140; 97163; G0283 ==

== ENCOUNTER 2023-12-23 07:56 | Outpatient (CLI) | payer MEDICARE, MEDICAID, SELFPAY ==
--- NOTE | 2023-12-23 07:57 | MM_ITS ---
PROCEDURE INFORMATION: Exam: MG Bilateral Screening 3D Mammography Exam date and time: 12/23/2023 8:00 AM Age: 43 years old Clinical indication: Screening. A maternal cousin and a maternal great aunt had breast cancer. TECHNIQUE: Imaging protocol: Bilateral Screening tomosynthesis and 2D mammography including computer-aided detection (CAD) when performed. COMPARISON: 1. MG MM DIG SCREENING MAMM BI W/CAD 12/24/2022 7:53 AM 2. MG MM DIG SCREENING MAMM BI W/CAD 11/20/2021 8:17 AM FINDINGS: MAMMOGRAPHY: Breast composition: There are scattered areas of fibroglandular density. Mass: None. Architectural distortion: None. Calcifications: No suspicious calcifications. Asymmetric density: None. Skin thickening: None. Axillary adenopathy: None. IMPRESSION: No mammographic evidence of malignancy. Annual screening is recommended unless otherwise clinically indicated. ASSESSMENT: BI-RADS Category 1: Negative
== END 2023-12-23 23:59 ==
LOC: RAD 07:57
PROVIDERS: PCP Nurse Practitioner; Visit Provider Nurse Practitioner Obstetrics & Gynecology
DX: Z12.31 Encounter for screening mammogram for malignant neoplasm of breast (principal)
CPT/HCPCS: 77063; 77067

== ENCOUNTER 2024-02-07 08:44 | Outpatient (POV) | payer MEDICARE, MEDICAID, SELFPAY ==
[2024-02-07 08:57] VITALS: BP 103/62; PULSE 78; RESP 18; O2SAT 97; BMI 35.5
--- NOTE | 2024-02-07 09:03 | A.OFFVIS_ITS ---
HPI Data of Consult Patient: new to practice Consult date: 02/07/24 Requesting Physician: Liset Whaley APRN Primary Care Provider: Joy Dexter APRN Consult Narrative Reason for consult: Chronic neck pain, low back pain, leg pain, buttocks pain History of present illness: Ms. Bustamante is a 43 year old female who presents today as a new patient. She is a referral from Dr. Garza's office. Today she rates her pain a 7 out of 10. Patient states she does have chronic pain in her neck however what she is really seen in our office for is low back, buttocks and leg pain. Patient states has been going on for at least a year unrelated to any specific injury or trauma. Patient does describe it as an aching, throbbing sensation with numbness and tingling that radiates down into her legs. Patient does state the pain just seems to get worse and worse and is interfering with her ability to perform activities of daily living. Patient states that it is worse with increased walking or activity or prolonged positioning such as sitting. Patient states that the only thing that really seem to help over time has been a TENS unit however immediately once stopping the TENS unit the pain comes right back. Patient does state that a lot of her symptoms seem to start after she ended up having a stroke in 2020 and then it progressively worsened from them on. Patient is currently on blood thinner written by her coater smoking pipe at [place]. She states that she was also diagnosed with diastolic heart failure. Patient has tried Tylenol along with heat and ice and topicals with minimal relief. Patient did recently go to physical therapy however this worsened her pain. Patient has tried to continue at home exercising and stretching for longer than 6 weeks with minimal change. Patient is currently managed with gabapentin and tizanidine however notices no additional relief. Patient denies any surgery history for injection history in the past. Her Bertin has been reviewed and is appropriate. CC: Liset Whaley APRN [facility] Disclaimer: The information contained in this section may have been updated after the patient was seen, as this information can be updated by other users. Medical History (Updated 02/07/24 @ 09:25 by Liset Whaley APRN) Coronary arteritis Depression Anxiety Hyperlipidemia Migraines Asthma CVA (cerebral vascular accident) Surgical History PFO (patent foramen ovale) Family History Mother Cancer Grandmother Stroke Grandfather Stroke Social History (Updated 02/07/24 @ 09:14 by Valarie Jerez, RN) Smoking Status: Former smoker tobacco type: cigarettes packs per day: 1 alcohol intake: never substance use type: denies use current occupational status: unemployed Travel in the last 8 weeks: None household members: significant other and children housing: other Review of Systems Review of Systems Review of systems:: pertinent systems reviewed and negative unless documented below Review of systems (narrative): Review of Systems: General: No recent weight changes, no fever, no sleep disturbances Respiratory: No cough, no shortness of air, no recurring pulmonary infections Cardiovascular/peripheral vascular: No chest pain, no palpitations, no edema, no shortness of breath Gastrointestinal: No new onset incontinence, normal bowel movements reported Genitourinary: No new onset incontinence Musculoskeletal: Low back pain, bilateral leg pain, buttocks pain Psychiatric: [Normal mood/affect] Neurological: [Denies weakness in extremities], [denies balance issues] Meds Home Medications and Allergies Home Medications Medication Instructions Recorded Confirmed Type atorvastatin 40 mg tablet 40 mg PO HS 03/09/21 02/07/24 History clopidogrel 75 mg tablet 75 mg PO DAILY 03/09/21 02/07/24 History cetirizine 10 mg tablet 10 mg PO DAILY ALLERGIES 07/11/21 02/07/24 History propranolol 80 mg tablet 80 mg PO BID 06/08/22 02/07/24 History rimegepant 75 mg disintegrating 75 mg PO Q OTHER DAY 06/08/22 02/07/24 History tablet (Nurtec ODT) tizanidine 4 mg tablet 4 mg PO BID PRN Pain 06/08/22 02/07/24 History paroxetine HCl 40 mg tablet (Paxil) 40 mg PO DAILY #30 tabs 10/03/22 02/07/24 Rx atogepant 60 mg tablet (Qulipta) 60 mg PO DAILY 01/27/24 02/07/24 History dapagliflozin propanediol 10 mg 10 mg PO DAILY 01/27/24 02/07/24 History tablet (Farxiga) gabapentin 600 mg tablet 600 mg PO DAILY 01/27/24 02/07/24 History levonorgestrel 21 mcg/24 hr (up to 21 mcg intrauterine DIRECTED 01/27/24 02/07/24 History 8 years) 52 mg intrauterine device CONTROLL (Mirena) ropinirole 0.25 mg tablet 0.25 mg PO DAILY 01/27/24 02/07/24 History solifenacin 10 mg tablet 10 mg PO DAILY 01/27/24 02/07/24 History trazodone 100 mg tablet 100 mg PO DAILY 01/27/24 02/07/24 History trazodone 50 mg tablet 100 mg PO DAILY 01/27/24 02/07/24 History New Prescriptions to Start Prescriptions: Allergies Allergy/AdvReac Type Severity Reaction Status Date / Time No Known Allergies Allergy Verified 01/27/24 10:36 Objective Narrative: Physical Exam: General: Alert and oriented x3, no acute distress, pleasant and cooperative Lungs: Respirations even and unlabored, symmetrical chest expansion Eyes: PERRL Musculoskeletal: Flexion and extension of lumbar [spine] somewhat guarded secondary to pain, [antalgic gait noted] Neurological: Speech clear, no gross sensory deficit Additional findings Additional findings: MRI lumbar spine summary 01/22/2024 Findings: Broad-based disc bulge at L4-L5 with mild central canal stenosis but no neuroforaminal narrowing. There is broad-based disc bulge at L5-S1 paracentric to the left with mild central canal stenosis FINDINGS: There is normal alignment. The spinal cord ends at the T12-L1 level. T11-T12: Mild degenerative disc disease with very minimal right paracentral disc protrusion without impingement. Mild right lateral recess narrowing. T12-L1: Unremarkable. L1-L2: Unremarkable. L2-L3: Mild facet and ligamentum hypertrophic change with minimal bilateral lateral recess narrowing. L3-L4: Mild facet and ligamentum hypertrophy. Minimal amount of fluid noted in the facet joint on the right. L4-5: Disc desiccation with bulging disc with minimal left paracentral disc protrusion. Moderate facet and ligamentum hypertrophic change with bilateral lateral recess narrowing left slightly greater than right and mild bilateral foraminal narrowing. Borderline canal stenosis. L5-S1: Minimal bulging disc with facet and ligamentum hypertrophic change with mild bilateral foraminal narrowing. Canal stenosis of 10 mm at this level. No extruded herniated disc. No fracture or dislocation. No bony destructive process evident. Subcutaneous edema noted in the upper lumbar region. IMPRESSION: 1. T11-T12: Mild degenerative disc disease with very minimal right paracentral disc protrusion without impingement. Mild right lateral recess narrowing. 2. L2-L3: Mild facet and ligamentum hypertrophic change with minimal bilateral lateral recess narrowing. The 3. L3-L4: Mild facet and ligamentum hypertrophy. Minimal amount of fluid noted in the facet joint on the right. 4. L4-5: Disc desiccation with bulging disc with minimal left paracentral disc protrusion. Moderate facet and ligamentum hypertrophic change with bilateral lateral recess narrowing left slightly greater than right and mild bilateral foraminal narrowing. Borderline canal stenosis. 5. L5-S1: Minimal bulging disc with facet and ligamentum hypertrophic change with mild bilateral foraminal narrowing. Canal stenosis of 10 mm at this level 6. No extruded herniated disc apparent. Dictated by: Ramakrishna Yanes MD 06/30/2021 08:39 Ramakrishna Yanes MD in [place] 06/30/2021 08:39 Assessment and Plan *Assessment and plan (1) Degenerative disc disease, lumbar: Status: Acute Category: Medical Code(s): M51.36 - Other intervertebral disc degeneration, lumbar region (2) Lumbar spinal stenosis: Status: Acute Qualifiers: Neurogenic claudication status: with neurogenic claudication Qualified Code(s): M48.062 - Spinal stenosis, lumbar region with neurogenic claudication Category: Medical Code(s): M48.061 - Spinal stenosis, lumbar region without neurogenic claudication (3) Ligamentum flavum hypertrophy: Status: Acute Category: Medical Code(s): M24.28 - Disorder of ligament, vertebrae (4) Lumbar facet arthropathy: Status: Acute Category: Medical Code(s): M47.816 - Spondylosis without myelopathy or radiculopathy, lumbar region (5) Lumbar radiculopathy: Status: Acute Category: Medical Code(s): M54.16 - Radiculopathy, lumbar region Plan Patient is experiencing significant pain throughout her low back with radiating symptoms down to her feet and both legs. Patient did have limited range of motion of her lumbar spine with positive leg raise. I have discussed with patient that she may benefit from lumbar epidural steroid injection. Risk and benefits were discussed with patient and she would like to proceed forward with this plan of care. Patient is currently on Plavix written by Dr. Medina at [facility]. I have counseled her that we will reach out to this office and confirm that she can stop this medication prior to her injection. Patient acknowledges understanding and agrees with plan of care. I will also order the patient a compounded cream. Patient has tried and failed conservative therapy including recent physical therapy and continued home exercise and stretching. We will schedule the patient for an LESI L4-L5 under fluoroscopy. In future patient may be a beneficial candidate of a minimally invasive lumbar decompression due to her ligamentum flavum hypertrophy. We will follow-up with this at future visits. Patient has been instructed to contact the clinic with any concerns before the next appointment. Dr. Cruz has reviewed this note and agrees with this plan of care. This note was dictated using voice recognition software and make contain errors or omissions.
== END 2024-02-07 23:59 | disposition home or self-care (01) ==
LOC: SC.PAIN 08:45
PROVIDERS: PCP Nurse Practitioner; Visit Provider Nurse Practitioner Family
DX: M48.062 Spinal stenosis, lumbar region with neurogenic claudication; M24.28 Disorder of ligament, vertebrae; M51.16 Intervertebral disc disorders with radiculopathy, lumbar region; M47.26 Other spondylosis with radiculopathy, lumbar region
CPT/HCPCS: 99202; G0463

== ENCOUNTER 2024-03-10 09:39 | Day surgery (SDC) | payer MEDICARE, MEDICAID, SELFPAY ==
[2024-03-10 09:49] VITALS: BP 119/74; PULSE 82; RESP 16; TEMP 36.4; O2SAT 98; BMI 34.3
[2024-03-10 09:59] VITALS: BP 117/54; PULSE 74; RESP 18; O2SAT 97
[2024-03-10] MEDS: methylPREDNISolone ACETATE 80MG/ML VIAL 80 MG (09:59)
[2024-03-10 10:00] VITALS: BP 117/54; PULSE 58; RESP 18; O2SAT 97
--- NOTE | 2024-03-10 10:03 | EXP.PAIN.PRO ---
Procedure Date: 03/10/24 Time: 10:00 Anesthesiologist:: Earl Ott CRNA Complications:: None Pre-procedure Diagnosis:: Degenerative disc lumbar spine multilevels. Lumbar radiculopathy. Lumbar disc bulge. Post-procedure Diagnosis:: Same. Indications for Procedure:: Patient is a pleasant 43-year-old female comes our clinic today for a lumbar epidural steroid injection at the L4-5 level. Patient describes low back pain as constant, intermittent, dull, aching. She rates her pain 6/10. Patient also reports bilateral hip and leg radicular symptoms. Patient is very active in her home and in her yard as well as gardening. Pain intensifies with activity. Procedure Details:: Procedure: Lumbar epidural steroid injection under fluoroscopy Informed consent was obtained and the risks and benefits of the procedure were explained to the patient. The patient was taken to the procedure room and noninvasive monitors placed, including noninvasive blood pressure cuff and pulse oximeter. The back was viewed using C-arm Fluoroscopy and prepped using Chloraprep as a cleansing solution and the L4-L5 interspace was palpated. Skin and subcutaneous tissues were anesthetized using lidocaine 1.5% and a 25-gauge needle. After this, an 18-gauge Touhy epidural needle was placed into the L4-L5 interspace and advanced using fluoroscopic guidance and loss of resistance to air until the epidural space was encountered. After confirmation of needle placement in the epidural space, with dye, a solution containing normal saline, 3 mL and Depo-Medrol 80 mg were incrementally injected into the lumbar epidural space. The patient tolerated the procedure well with no complications. The patient was observed in the Pain Clinic and then discharged home neurologically intact. Plan and Disposition:: Patient was discharged without incident.
[2024-03-10 10:11] VITALS: BP 151/81; PULSE 81; RESP 18; O2SAT 97
== END 2024-03-10 10:12 | disposition home or self-care (01) ==
PROVIDERS: PCP Nurse Practitioner; Visit Provider Nurse Anesthetist, Certified Registered
DX: M54.16 Radiculopathy, lumbar region (principal); M51.36 Other intervertebral disc degeneration, lumbar region
CPT/HCPCS: 62323; J1010

== ENCOUNTER 2024-04-02 13:28 | Outpatient (POV) | payer MEDICARE, MEDICAID, SELFPAY ==
[2024-04-02 13:37] VITALS: BP 111/56; PULSE 85; RESP 16; O2SAT 97; BMI 33.7
--- NOTE | 2024-04-02 13:59 | EXP.PAIN.SOA ---
[facility] Disclaimer: The information contained in this section may have been updated after the patient was seen, as this information can be updated by other users. Medical History (Updated 04/02/24 @ 14:01 by Liset Whaley APRN) Coronary arteritis Depression Anxiety Hyperlipidemia Migraines Asthma CVA (cerebral vascular accident) Surgical History PFO (patent foramen ovale) Family History Mother Cancer Grandmother Stroke Grandfather Stroke Social History Smoking Status: Former smoker tobacco type: cigarettes packs per day: 1 alcohol intake: never substance use type: denies use current occupational status: unemployed Travel in the last 8 weeks: None household members: significant other and children housing: other PM Subjective & Objective Subjective Subjective:: Patient is a pleasant 43-year-old female who presents today for follow-up of lumbar epidural steroid injection L4-L5 on 03/10/2024. Patient rates her pain today a 5 out of 10. Patient does state that she had 70% improvement following this injection and that it worked great for over a week however that she was working in the garden and doing more activity when she started to have a flareup of overall back and hip pain. Patient denies that this pain goes into her legs and she does state it feels a little bit different than what her last pain 1. Patient states he just feels in and around the low back and hips and buttocks area and does interfere with her ability to perform activities of daily living such as cooking and cleaning. Patient is interested in any help we may be able to provide. Patient does take tizanidine for neck issues however feels like she really does not notice significant relief. Her Bertin has been reviewed and is appropriate. Review of Systems: General: No recent weight changes, no fever, no sleep disturbances Respiratory: No cough, no shortness of air, no recurring pulmonary infections Cardiovascular/peripheral vascular: No chest pain, no palpitations, no edema, no shortness of breath Gastrointestinal: No new onset incontinence, normal bowel movements reported Genitourinary: No new onset incontinence Musculoskeletal: Low back pain, bilateral hip pain Psychiatric: [Normal mood/affect] Neurological: [Denies weakness in extremities], [denies balance issues] Pain at rest (0-10 scale): 5 Objective Objective:: Physical Exam: General: Alert and oriented x3, no acute distress, pleasant and cooperative Lungs: Respirations even and unlabored, symmetrical chest expansion Eyes: PERRL Musculoskeletal: Flexion and extension of lumbar [spine] somewhat guarded secondary to pain, [antalgic gait noted] point tenderness along bilateral SIs with positive bilateral Laurie's, Margarita's, Gaenslen's, compression and distraction exam Neurological: Speech clear, no gross sensory deficit Has patient had previous pain injection?: Yes Percent improvement in pain since last injection: 70% Conservative treatment options previously tried: Home exercise plan Length of treatment: Longer than 6 weeks Meds Home Medications and Allergies Home Medications Medication Instructions Recorded Confirmed Type atorvastatin 40 mg tablet 40 mg PO HS 03/09/21 04/02/24 History clopidogrel 75 mg tablet 75 mg PO DAILY 03/09/21 04/02/24 History cetirizine 10 mg tablet 10 mg PO DAILY ALLERGIES 07/11/21 04/02/24 History propranolol 80 mg tablet 80 mg PO BID 06/08/22 04/02/24 History rimegepant 75 mg disintegrating 75 mg PO Q OTHER DAY 06/08/22 04/02/24 History tablet (Nurtec ODT) tizanidine 4 mg tablet 4 mg PO BID PRN Pain 06/08/22 04/02/24 History paroxetine HCl 40 mg tablet (Paxil) 40 mg PO DAILY #30 tabs 10/03/22 04/02/24 Rx atogepant 60 mg tablet (Qulipta) 60 mg PO DAILY 01/27/24 04/02/24 History dapagliflozin propanediol 10 mg 10 mg PO DAILY 01/27/24 04/02/24 History tablet (Farxiga) gabapentin 600 mg tablet 600 mg PO DAILY 01/27/24 04/02/24 History levonorgestrel 21 mcg/24 hr (up to 21 mcg intrauterine DIRECTED 01/27/24 04/02/24 History 8 years) 52 mg intrauterine device CONTROLL (Mirena) ropinirole 0.25 mg tablet 0.25 mg PO DAILY 01/27/24 04/02/24 History solifenacin 10 mg tablet 10 mg PO DAILY 01/27/24 04/02/24 History trazodone 100 mg tablet 100 mg PO DAILY 01/27/24 04/02/24 History trazodone 50 mg tablet 100 mg PO DAILY 01/27/24 04/02/24 History New Prescriptions to Start Prescriptions: Allergies Allergy/AdvReac Type Severity Reaction Status Date / Time No Known Allergies Allergy Verified 03/10/24 09:50 Assessment and Plan *Assessment and plan (1) Bilateral sacroiliitis: Status: Acute Category: Medical Code(s): M46.1 - Sacroiliitis, not elsewhere classified Plan Patient is experiencing worsening pain in her bilateral hips and low back. Patient did have extreme point tenderness along her bilateral SIs and a positive bilateral Laurie's, Margarita's, Gaenslen's, compression and distraction exam. I have counseled the patient that it does appear that it is more her sacroiliac joints. I have discussed that she may benefit from bilateral SI injections. Risk and benefits were discussed with patient and she would like to proceed forward with this plan of care. I will also send in a compounded cream and a 2-week dose of baclofen 5 mg at bedtime. Patient has tried and failed conservative therapy including continued at home stretching exercise between injections with minimal relief. Patient will be submitted for bilateral SI injections under fluoroscopy. Patient has been instructed to contact the clinic with any concerns before the next appointment. Dr. Cruz has reviewed this note and agrees with this plan of care. This note was dictated using voice recognition software and make contain errors or omissions.
== END 2024-04-02 23:59 | disposition home or self-care (01) ==
PROVIDERS: PCP Nurse Practitioner; Visit Provider Nurse Practitioner Family
DX: M46.1 Sacroiliitis, not elsewhere classified (principal)
CPT/HCPCS: 99212; G0463

== ENCOUNTER 2024-04-22 09:27 | Outpatient (CLI) | payer MEDICARE, MEDICAID, SELFPAY | END 2024-04-22 23:59 | disposition home or self-care (01) | LOC: LAB.DROPOF 04-23 09:27 | PROVIDERS: PCP Nurse Practitioner Obstetrics & Gynecology; Visit Provider Nurse Practitioner Obstetrics & Gynecology | DX: R10.2 Pelvic and perineal pain (principal) | CPT/HCPCS: 87086 ==

== ENCOUNTER 2024-04-24 08:31 | Outpatient (CLI) | payer MEDICARE, MEDICAID, SELFPAY ==
--- NOTE | 2024-04-24 08:32 | US_ITS ---
PROCEDURE: US TRANSVAGINAL CLINICAL INDICATION: IUD placement/position and Abnormal Vag Bleeding COMPARISON: No exams were available for comparison FINDINGS: Transvaginal sonographic images of the pelvis were obtained. UTERUS: 6.3cm x 4.7 cmx 3.8 cm midline with a combined endometrial thickness of 4.5mm. There are several small nabothian cysts in the cervix. Difficult to see IUD placement due to the position of the uterus but appears to be in the correct position. LEFT OVARY: 4.9 cmx3.2cmx3.0cm with a volume of 24.1ml. There is a dominant follicle in the left ovary measuring 3.7 cm x 3.7 cm x 4.1 cm. There is a 2nd follicle measuring 3.0 cm x 2.9 cm x 1.8 cm. There are several smaller peripheral follicles. RIGHT OVARY: 4.3cmx 2.6 cmx3.4cm with a volume of 27.1ml. There is a dominant follicle measuring 2.2 cm x 1.9 cm x 1.8 cm. There are several other small follicles. Both ovaries are seen and appear normal. Doppler flow to both ovaries are seen. There is a small amount of fluid in the cul-de-sac. IMPRESSION: 1. Midline uterus normal in shape and size. The endometrium is thin. 2. There appears to be an IUD in the correct position although difficult exam secondary to the uterine position. 3. Both ovaries are seen and contain multiple follicles. The left ovary contains a follicle measuring 4.1 cm. The right ovary contains a follicle measuring 2.2 cm. 4. Suggest follow-up ultrasound in 3 months. 5. There is a small amount of fluid in the cul-de-sac. Dictated by: Jose Nuñez MD 04/25/2024 07:53 Jose Nuñez MD in [place] 04/25/2024 07:53
== END 2024-04-24 23:59 | disposition home or self-care (01) ==
LOC: RAD 08:31
PROVIDERS: PCP Nurse Practitioner; Visit Provider Nurse Practitioner Obstetrics & Gynecology
DX: Z97.5 Presence of (intrauterine) contraceptive device (principal); N93.9 Abnormal uterine and vaginal bleeding, unspecified
CPT/HCPCS: 76830

== ENCOUNTER 2024-08-04 08:38 | Outpatient (CLI) | payer MEDICARE, SELFPAY ==
--- NOTE | 2024-08-04 08:39 | US_ITS ---
PROCEDURE: US TRANSVAGINAL CLINICAL INDICATION: 3 month f/u on Left Ovarian Cyst COMPARISON: US US TRANSVAGINAL from 04/24/2024 FINDINGS: Transvaginal sonographic images of the pelvis were obtained. UTERUS: 6.5 cm x 5.5 cmx 4.1cm anteverted with a combined endometrial thickness of 5.2 mm. There is an IUD within the uterine cavity in the correct position There are multiple small nabothian cysts within the cervix. LEFT OVARY: 4.7 cmx3.0cmx2.3cm with a volume of 17.2ml. There is a follicle measuring 2.8 cm x 2.1 cm x 2.9 cm. RIGHT OVARY: 4.4cmx 2.8x3.2cm with a volume of 20.9ml. There is a follicle measuring 3.0 cm x 2.0 cm x 2.0 cm. The previously described 4 cm ovarian cyst has now resolved. Both ovaries are seen and appear normal. Doppler flow to both ovaries are seen. There is small amount of free fluid fluid in the cul-de-sac. There is a small amount of free fluid adjacent to the right ovary IMPRESSION: 1. Anteverted uterus normal in shape and size. The endometrium measures 5.2 mm 2. Within the uterine cavity there is an IUD in the correct position. 3. Both left and right ovaries appear normal. The previously described 4 cm ovarian cyst has now resolved and the right ovary contains a thick smaller 3 cm follicle. 4. There is a small amount of free fluid adjacent to the right ovary and in the cul-de-sac. Dictated by: Jose Nuñez MD 08/04/2024 14:13 Jose Nuñez MD in [facility] 08/04/2024 14:13
== END 2024-08-04 23:59 | disposition home or self-care (01) ==
LOC: RAD 08:39
PROVIDERS: PCP Nurse Practitioner; Visit Provider Nurse Practitioner Obstetrics & Gynecology
DX: N83.202 Unspecified ovarian cyst, left side (principal)
CPT/HCPCS: 76830

== ENCOUNTER 2024-11-16 05:10 | Emergency (ER) | payer MEDICARE, MEDICAID, SELFPAY ==
[2024-11-16 05:17] VITALS: BP 150/105; PULSE 112; RESP 24; TEMP 36.7; O2SAT 95; BMI 27.4
[2024-11-16] MEDS: PROMETHAZINE HCL 25MG/ML 1ML VIAL 25 MG IV (05:22)
[2024-11-16] MEDS: LACTATED RINGERS 1000ML 1,000 ML 999 ML IV ×2 (05:22→06:06)
[2024-11-16] MEDS: SODIUM CHLORIDE 0.9% 25ML BAG 25 ML IV (05:22)
[2024-11-16 05:32] LABS: Basophils % 0.3 % (0.1-2.0); Eosinophils # 0.1 K/mm3 (0.0-0.4); Hematocrit 42.9 % (37.0-47.0); Hemoglobin 14.1 g/dL (12.2-16.2); Lymphocytes # 1.8 K/mm3 (0.7-4.5); Lymphocytes % 14.2 % (10-50); Mean Corpuscular HGB Conc 32.9 g/dL (31.8-35.4); Mean Corpuscular Hemoglobin 31.1 pg (27.0-31.2); Mean Corpuscular Volume 94.7 fl (81-99); Mean Platelet Volume 10.5 fl (7.4-10.4); Monocytes # 0.8 K/mm3 (0.1-1.0); Monocytes % 6.4 % (1.7-9.3); Neutrophils # 9.8 K/mm3 (1.8-7.8); Neutrophils % 77.6 % (37.0-80.0); Platelet Count 312 K/mm3 (142-424); Red Blood Count 4.53 M/mm3 (4.20-5.40); White Blood Count 12.6 K/mm3 (4.8-10.8)
--- NOTE | 2024-11-16 05:33 | HMH.EDGENADL ---
Discharge Plan Disposition Patient Disposition: Home, Self-Care Prescriptions Prescriptions: New promethazine 25 mg tablet 25 mg PO Q6H PRN (Reason: nausea and vomiting) Qty: 20 0RF promethazine 25 mg suppository 25 mg W[place] Q8 PRN (Reason: sedation) Qty: 12 0RF No Action propranolol 80 mg tablet 80 mg PO BID Nurtec ODT 75 mg tablet,disintegrating 75 mg PO Q OTHER DAY tizanidine 4 mg tablet 4 mg PO BID PRN (Reason: Pain) trazodone 100 mg tablet 100 mg PO DAILY Patient Comments: TAKE ONE TABLET BY MOUTH DAILY AT BEDTIME FOR 90 DAYS gabapentin 600 mg tablet 600 mg PO DAILY ropinirole 0.25 mg tablet 0.25 mg PO DAILY dapagliflozin propanediol [Farxiga] 10 mg tablet 10 mg PO DAILY Qulipta 60 mg tablet 60 mg PO DAILY solifenacin 10 mg tablet 10 mg PO DAILY Mirena 21 mcg/24 hr (8 yrs) 52 mg intrauterine device 21 mcg intrauterine DIRECTED Wegovy 1 mg/0.5 mL pen injector SQ furosemide 20 mg tablet 20 mg PO DAILY clopidogrel 75 mg tablet 75 mg PO DAILY atorvastatin 40 mg tablet 40 mg PO HS paroxetine HCl [Paxil] 40 mg tablet 40 mg PO DAILY Qty: 30 3RF Referrals Follow up/Referrals: Joy Dexter APRN [Primary Care Provider] - See instructions Activity Restrictions/Add. Instructions Additional Instructions/Restrictions: Please follow-up with your primary care provider. Please return to the emergency department if you develop any new or worsening symptoms or become concerned for your health. I sent prescriptions for Phenergan to your pharmacy. Clinical Impressions Clinical Impression: Nausea vomiting and diarrhea, Medication side effect Instructions Patient Instructions: DI for Diarrhea and Traveler's Diarrhea -- Adult, DI for Diarrhea and Traveler's Diarrhea -- Child, DI for Nausea -- Adult, DI for Nausea -- Child Print Language Print Language: Latvian Discharge ED Provider: Jordan Tellez Adult HPI General Chief complaint: Nausea/Vomiting/Diarrhea Stated complaint: vomiting Time Seen by Provider: 11/16/24 05:15 Mode of Arrival: Ambulatory Source of Information: Patient Limitations: No Limitations Description of Symptoms (Recalled from ER Triage Doc. by RN): Pt states she has had vomiting since taking Wegovy. History of Present Illness HPI narrative: 44-year-old female with history of stroke, heart failure, presents for severe nausea vomiting and some diarrhea after restarting her Wegovy. He is up to a dose of 1.7 mg but had to take a month off due to insurance issues. She restarted with the same dose yesterday and has been in agony since then with prolific nausea vomiting and some diarrhea. She has been unable to keep down even Zofran. She denies any significant pain. Related Data Home Medications ?Medication ?Instructions ?Recorded ?Confirmed atorvastatin 40 mg tablet 40 mg PO HS 03/09/21 04/22/24 clopidogrel 75 mg tablet 75 mg PO DAILY 03/09/21 04/22/24 propranolol 80 mg tablet 80 mg PO BID 06/08/22 04/22/24 rimegepant 75 mg disintegrating 75 mg PO Q OTHER DAY 06/08/22 04/22/24 tablet (Nurtec ODT) tizanidine 4 mg tablet 4 mg PO BID PRN Pain 06/08/22 04/22/24 atogepant 60 mg tablet (Qulipta) 60 mg PO DAILY 01/27/24 04/22/24 dapagliflozin propanediol 10 mg 10 mg PO DAILY 01/27/24 04/22/24 tablet (Farxiga) gabapentin 600 mg tablet 600 mg PO DAILY 01/27/24 04/22/24 levonorgestrel (Mirena) 21 mcg intrauterine DIRECTED 01/27/24 04/22/24 CONTROLL ropinirole 0.25 mg tablet 0.25 mg PO DAILY 01/27/24 04/22/24 solifenacin 10 mg tablet 10 mg PO DAILY 01/27/24 04/22/24 trazodone 100 mg tablet 100 mg PO DAILY 01/27/24 04/22/24 furosemide 20 mg tablet 20 mg PO DAILY 04/22/24 04/22/24 semaglutide (weight loss) 1 mg/0.5 mg SQ 04/22/24 04/22/24 mL subcutaneous pen injector (Wegovy) Previous Rx's ?Medication ?Instructions ?Recorded paroxetine HCl 40 mg tablet (Paxil) 40 mg PO DAILY #30 tabs 10/03/22 promethazine 25 mg rectal 25 mg W[place] Q8 PRN sedation #12 ea 11/16/24 suppository promethazine 25 mg tablet 25 mg PO Q6H PRN nausea and 11/16/24 vomiting #20 tabs Allergies Allergy/AdvReac Type Severity Reaction Status Date / Time No Known Allergies Allergy Verified 04/22/24 15:43 [facility] Disclaimer: The information contained in this section may have been updated after the patient was seen, as this information can be updated by other users. Medical History Coronary arteritis Depression Anxiety Hyperlipidemia Migraines Asthma CVA (cerebral vascular accident) Surgical History PFO (patent foramen ovale) Family History Mother Cancer Grandmother Stroke Grandfather Stroke Social History Smoking Status: Never smoker alcohol intake: never substance use type: denies use current occupational status: unemployed Travel in the last 8 weeks: None household members: significant other and children housing: other Have you lived/traveled outside US in past 30 days?: No Contact w/someone who lives/traveled outside US past 30 days?: No Exposure to someone with infectious disease in past 14 days?: No Do you have a fever (greater than 100.4 F or 38 C)?: No Have you tested positive for COVID-19: No Exposed to someone with COVID-19 in past 14 days?: No Do you have a sore throat?: No Do you have a cough?: No Do you have any weakness?: No Do you have any diarrhea?: No Are you experiencing any unusual bleeding?: No Do you have any muscle aches/pain?: No Do you have any abdominal pain?: No Are you experiencing loss of taste or smell?: No Other Medical History Have you received the Flu Vaccine for this season: Yes Have you received the Pneumonia Vaccine: No ROS Obtained: Yes All systems reviewed & no additional complaints except as documented Physical Exam General General appearance: alert and in distress Comment: Actively vomiting Head Head exam: atraumatic and normocephalic Eye Eye exam: Present normal appearance, PERRL and EOMI ENT ENT exam: Present normal oropharynx and normal external ear exam Neck Neck exam: Present normal inspection and full ROM Chest Chest inspection: Present normal inspection and symmetric chest wall rise; Absent tenderness Respiratory Respiratory exam: Present normal lung sounds bilaterally; Absent respiratory distress Cardiovascular Cardiovascular exam: Present regular rate and normal rhythm Abdominal Exam Abdominal exam: Present soft; Absent distention, tenderness or guarding Extremities Exam Extremities exam: Present normal inspection; Absent edema or joint swelling Back Exam Back exam: Present normal inspection; Absent tenderness Neurological Exam Neurological exam: Present alert and oriented X3; Absent motor sensory deficit Psychiatric Psychiatric exam: Present normal affect and normal mood Skin Skin exam: Present warm, dry and normal color Lymphatic Lymphatic Findings: no adenopathy Medical Decision Making Medical Records Medical records reviewed: Yes I reviewed the patient's medical records. Screening: Per USPSTF and CDC recommendations, given the prevalence of disease in our region, it is our hospital?s policy to screen for HIV and viral Hepatitis for all patients aged 18 and over and those with ongoing risk factors. Bertin Inquiry Pt receiving controlled substance: No Bertin was queried for this patient: No Vital Signs: 11/16/24 05:17 11/16/24 07:13 Temperature 98.1 F 98.0 F Temperature Source Oral Oral Pulse Rate 89 Pulse Rate [Right Brachial] 112 H Respiratory Rate 24 16 Blood Pressure 133/86 Blood Pressure [Right Arm] 150/105 H Blood Pressure Mean [Right Arm] 120 Blood Pressure Source Automatic Cuff Blood Pressure Source [Right Arm] Automatic Cuff Blood Pressure Position Sitting Blood Pressure Position [Right Arm] Sitting 02 Sat by Pulse Oximetry 95 Oxygen Delivery Method Room Air Room Air Lab Data Lab results reviewed: Yes I reviewed the patient's lab results. Lab Results 11/16/24 05:19: WBC 12.6 H, RBC 4.53, Hgb 14.1, Hct 42.9, MCV 94.7, MCH 31.1, MCHC 32.9, RDW 14.0, Plt Count 312, MPV 10.5 H, Neut % (Auto) 77.6, Lymph % (Auto) 14.2, [place] % (Auto) 6.4, Eos % (Auto) 1.0, Baso % (Auto) 0.3, Neut # (Auto) 9.8 H, Lymph # (Auto) 1.8, [place] # (Auto) 0.8, Eos # (Auto) 0.1, Baso # (Auto) 0.0, Sodium 140, Potassium 4.1, Chloride 106, Carbon Dioxide 28, Anion Gap 10.1, BUN 10, Creatinine 0.80, Estimated Creat Clear 104, Estimated GFR 78, Est GFR ( Amer) 95, Glucose 95, Calcium 9.3, Phosphorus 3.0, Magnesium 2.0, Total Bilirubin 1.1, AST 46 H, ALT 44, Alkaline Phosphatase 84, Total Protein 7.4, Albumin 4.8, Globulin 2.6, Albumin/Globulin Ratio 1.8, Lipase 50, HCV Ab GAMALIEL w/Rflx PCR Qn Negative, HIV Ag/Ab Combo Qual Negative 11/16/24 05:19 11/16/24 05:19 Orders (Tests/Meds): ED MEDICATIONS Discontinued Medications Generic Name Dose Route Start Last Admin Trade Name Freq PRN Reason Stop Dose Admin Acetaminophen 1,000 mg 11/16/24 05:54 11/16/24 06:03 Acetaminophen 1,000mg/100ml Vial IV 11/16/24 05:55 1,000 mg ONCE ONE Administration Lactated Ringer's 1,000 mls @ 999 mls/hr 11/16/24 05:30 11/16/24 06:06 Lactated Ringer's 1000 Ml Bag IV 11/16/24 07:30 999 mls/hr .Q1H1M PETE Administration Ketorolac Tromethamine 30 mg 11/16/24 05:54 11/16/24 06:03 Ketorolac 30mg/Ml Vial IV 11/16/24 05:55 30 mg ONCE ONE Administration Morphine Sulfate 4 mg 11/16/24 05:16 11/16/24 05:52 Morphine 4mg/Ml Syringe IV 11/16/24 05:17 Not Given ONCE ONE Ondansetron HCl 4 mg 11/16/24 05:50 11/16/24 05:52 Ondansetron 4mg/2ml Vial IV 11/16/24 05:51 4 mg ONCE ONE Administration Promethazine HCl 25 mg 11/16/24 05:16 11/16/24 05:22 Promethazine Hcl 25mg/Ml 1ml Vial IV 11/16/24 05:17 25 mg ONCE ONE Administration Sodium Chloride 25 ml 11/16/24 05:16 11/16/24 05:22 Sodium Chloride 0.9% 25ml Bag IV 11/16/24 05:17 25 ml ONCE ONE Administration ORDERS Category Date Time Status CBC w/Auto Diff [Complete Blood Count Auto Diff] Stat Lab 11/16/24 05:19 Completed CMP [Comprehensive Metabolic Panel] Stat Lab 11/16/24 05:19 Completed HIV Combo Routine Lab 11/16/24 05:19 Completed Hepatitis C Ab Qual. W/ RFX Routine Lab 11/16/24 05:19 Completed Lipase Stat Lab 11/16/24 05:19 Completed MAG [Magnesium] Stat Lab 11/16/24 05:19 Completed Phosphorous Stat Lab 11/16/24 05:19 Completed Medical Decision Narrative: 44-year-old female with history of stroke and heart failure presents with severe nausea and vomiting after restarting Wegovy. History was obtained via interactive discussion with patient. On arrival, patient is [afebrile, hemodynamically stable, satting appropriately, alert, oriented x4, GCS 15], moving all extremities spontaneously. Full physical exam performed and significant for uncomfortable appearing patient with active vomiting. No significant abdominal tenderness or guarding on exam. Differential includes but is not limited to side effect of Wegovy, pancreatitis, gastroenteritis. Patient was given 1 L IV fluid bolus, IV Zofran, IV Phenergan for symptomatic management and correction of underlying abnormalities. Workup initiated including CBC CMP mag Phos lipase. On re-evaluation, patient reports significant symptomatic improvement. Laboratory workup independently interpreted by me and significant for leukocytosis with white count of 12.6. Normal lipase, no significant electrolyte derangement, minimally elevated AST.. CT imaging was considered, but deemed unnecessary due to negative lipase, no significant tenderness on exam. Given patient history, exam and workup, patient's presentation most likely represents side effect of Wegovy with resultant severe nausea vomiting and diarrhea. Interact discussion with the patient regarding her presentation. She reports that she is feeling better and is happy to go home. She has Zofran at home. I sent her with prescription for oral Phenergan as well as rectal Phenergan to take as needed if her symptoms become severe again. Return precautions given. Procedures Risk/Benefits of Procedure(s) Were Explained: Yes Critical Care Critical Care Time Critical Care Time: No
[2024-11-16 05:42] LABS: Alanine Aminotransferase 44 U/L (12-78); Albumin Level 4.8 g/dl (3.5-5.0); Albumin/Globulin Ratio 1.8 (1.1-1.8); Alkaline Phosphatase 84 U/L (38-126); Anion Gap 10.1 mEq/L (5-15); Aspartate Amino Transferase 46 U/L (14-36); Bilirubin,Total 1.1 mg/dl (0.2-1.3); Blood Urea Nitrogen 10 mg/dl (7-17); Calcium 9.3 mg/dl (8.4-10.2); Carbon Dioxide 28 mmol/L (22.0-30.0); Chloride 106 mmol/L (98-107); Creatinine Clearance Estimated 104 mL/min (50-200); Estimated Glomerular Filt Rate 78 ml/min (>60); GFR (African American) 95 ML/MIN (>60); Globulin 2.6 g/dL (1.3-3.2); Glucose 95 mg/dl (74-100); Lipase 50 U/L (23-300); Potassium 4.1 mmoL/L (3.5-5.1); Sodium 140 mmol/L (136-145); Total Protein,Serum 7.4 g/dl (6.3-8.2)
[2024-11-16] MEDS: ONDANSETRON 4MG/2ML VIAL 4 MG IV (05:52)
[2024-11-16] MEDS: ACETAMINOPHEN 1,000MG/100ML VIAL 1000 MG IV (06:03)
[2024-11-16] MEDS: KETOROLAC 30MG/ML VIAL 30 MG IV (06:03)
[2024-11-16 07:13] VITALS: BP 133/86; PULSE 89; RESP 16; TEMP 36.7; O2SAT 95
[2024-11-16 09:04] LABS: HIV Combo NEGATIVE (Negative)
[2024-11-16 09:13] LABS: Hepatitis C Ab Qual. W/ RFX NEGATIVE (Negative)
== END 2024-11-16 07:14 | disposition home or self-care (01) ==
PROVIDERS: Emergency Provider Emergency Medicine; PCP Nurse Practitioner
DX: T88.7XXA Unspecified adverse effect of drug or medicament, initial encounter (principal)
CPT/HCPCS: 80053; 83690; 83735; 84100; 85025; 86803; 87389; 96361; 96374; 96375; 99283; J0131; J1885; J2270; J2405; J2550; J7120

== ENCOUNTER 2024-12-09 08:45 | Outpatient (POV) | payer MEDICARE, MEDICAID, SELFPAY ==
--- NOTE | 2024-12-09 09:01 | EXP.PAIN.OV ---
HPI Data of Consult Patient: new to practice Consult date: 12/09/24 Requesting Physician: Liset Whaley APRN Primary Care Provider: Joy Dexter APRN Consult Narrative History of present illness: Ms. Bustamante is a 44 year old female who presents today as a new patient. She is paroled from CC: Liset Whaley APRN [facility] Disclaimer: The information contained in this section may have been updated after the patient was seen, as this information can be updated by other users. Medical History Coronary arteritis Depression Anxiety Hyperlipidemia Migraines Asthma CVA (cerebral vascular accident) Surgical History PFO (patent foramen ovale) Family History Mother Cancer Grandmother Stroke Grandfather Stroke Social History Smoking Status: Never smoker alcohol intake: never substance use type: denies use current occupational status: unemployed Travel in the last 8 weeks: None household members: significant other and children housing: other Have you lived/traveled outside US in past 30 days?: No Contact w/someone who lives/traveled outside US past 30 days?: No Exposure to someone with infectious disease in past 14 days?: No Do you have a fever (greater than 100.4 F or 38 C)?: No Have you tested positive for COVID-19: No Exposed to someone with COVID-19 in past 14 days?: No Do you have a sore throat?: No Do you have a cough?: No Do you have any weakness?: No Do you have any diarrhea?: No Are you experiencing any unusual bleeding?: No Do you have any muscle aches/pain?: No Do you have any abdominal pain?: No Are you experiencing loss of taste or smell?: No Meds Home Medications and Allergies Home Medications ?Medication ?Instructions ?Recorded ?Confirmed ?Type atorvastatin 40 mg tablet 40 mg PO HS 03/09/21 04/22/24 History clopidogrel 75 mg tablet 75 mg PO DAILY 03/09/21 04/22/24 History propranolol 80 mg tablet 80 mg PO BID 06/08/22 04/22/24 History rimegepant 75 mg disintegrating 75 mg PO Q OTHER DAY 06/08/22 04/22/24 History tablet (Nurtec ODT) tizanidine 4 mg tablet 4 mg PO BID PRN Pain 06/08/22 04/22/24 History paroxetine HCl 40 mg tablet (Paxil) 40 mg PO DAILY #30 tabs 10/03/22 04/22/24 Rx atogepant 60 mg tablet (Qulipta) 60 mg PO DAILY 01/27/24 04/22/24 History dapagliflozin propanediol 10 mg 10 mg PO DAILY 01/27/24 04/22/24 History tablet (Farxiga) gabapentin 600 mg tablet 600 mg PO DAILY 01/27/24 04/22/24 History levonorgestrel (Mirena) 21 mcg intrauterine DIRECTED 01/27/24 04/22/24 History CONTROLL ropinirole 0.25 mg tablet 0.25 mg PO DAILY 01/27/24 04/22/24 History solifenacin 10 mg tablet 10 mg PO DAILY 01/27/24 04/22/24 History trazodone 100 mg tablet 100 mg PO DAILY 01/27/24 04/22/24 History furosemide 20 mg tablet 20 mg PO DAILY 04/22/24 04/22/24 History semaglutide (weight loss) 1 mg/0.5 mg SQ 04/22/24 04/22/24 History mL subcutaneous pen injector (Erica) promethazine 25 mg rectal 25 mg [place] Q8 PRN sedation #12 ea 11/16/24 Rx suppository promethazine 25 mg tablet 25 mg PO Q6H PRN nausea and 11/16/24 Rx vomiting #20 tabs New Prescriptions to Start Prescriptions: Allergies Allergy/AdvReac Type Severity Reaction Status Date / Time No Known Allergies Allergy Verified 04/22/24 15:43 Objective Additional findings Additional findings: FINDINGS: There is normal alignment. The spinal cord ends at the T12-L1 level. T11-T12: Mild degenerative disc disease with very minimal right paracentral disc protrusion without impingement. Mild right lateral recess narrowing. T12-L1: Unremarkable. L1-L2: Unremarkable. L2-L3: Mild facet and ligamentum hypertrophic change with minimal bilateral lateral recess narrowing. L3-L4: Mild facet and ligamentum hypertrophy. Minimal amount of fluid noted in the facet joint on the right. L4-5: Disc desiccation with bulging disc with minimal left paracentral disc protrusion. Moderate facet and ligamentum hypertrophic change with bilateral lateral recess narrowing left slightly greater than right and mild bilateral foraminal narrowing. Borderline canal stenosis. L5-S1: Minimal bulging disc with facet and ligamentum hypertrophic change with mild bilateral foraminal narrowing. Canal stenosis of 10 mm at this level. No extruded herniated disc. No fracture or dislocation. No bony destructive process evident. Subcutaneous edema noted in the upper lumbar region. IMPRESSION: 1. T11-T12: Mild degenerative disc disease with very minimal right paracentral disc protrusion without impingement. Mild right lateral recess narrowing. 2. L2-L3: Mild facet and ligamentum hypertrophic change with minimal bilateral lateral recess narrowing. The 3. L3-L4: Mild facet and ligamentum hypertrophy. Minimal amount of fluid noted in the facet joint on the right. 4. L4-5: Disc desiccation with bulging disc with minimal left paracentral disc protrusion. Moderate facet and ligamentum hypertrophic change with bilateral lateral recess narrowing left slightly greater than right and mild bilateral foraminal narrowing. Borderline canal stenosis. 5. L5-S1: Minimal bulging disc with facet and ligamentum hypertrophic change with mild bilateral foraminal narrowing. Canal stenosis of 10 mm at this level 6. No extruded herniated disc apparent. Dictated by: Ramakrishna Yanes MD 06/30/2021 08:39 Ramakrishna Yanes MD in [place] 06/30/2021 08:39
--- NOTE | 2024-12-09 09:02 | EXP.PAIN.SOA ---
[facility] Disclaimer: The information contained in this section may have been updated after the patient was seen, as this information can be updated by other users. Medical History Coronary arteritis Depression Anxiety Hyperlipidemia Migraines Asthma CVA (cerebral vascular accident) Surgical History PFO (patent foramen ovale) Family History Mother Cancer Grandmother Stroke Grandfather Stroke Social History Smoking Status: Never smoker alcohol intake: never substance use type: denies use current occupational status: unemployed Travel in the last 8 weeks: None household members: significant other and children housing: other PM Subjective & Objective Subjective Subjective:: Patient is a pleasant 44-year-old female who presents today for follow-up. Today she rates her pain a 6 out of 10. Patient denies any new injuries or traumas from her last appointment.Patient was last seen in our office back in March 2020 for her to follow-up after a lumbar epidural injection that did provide 70% improvement. Patient states she is still continuing to have low back pain as well as pain into her tailbone, buttocks and hip area. Patient states this been going on for longer than 3 months. She denies any updated imaging. Patient states that she does not have any radiating symptoms into her legs. She states the pain is constant and is interfering with her ability perform activities of daily living such as cooking and cleaning. Patient states it is often worse when she is sitting for prolonged periods or driving. She states she frequently has to change position due to the worsening pain. Patient has been to physical therapy however this made her symptoms worse. She has continued at home stretching exercise for longer than 12 weeks with no additional improvement. Her Bertin has been reviewed and is appropriate. Review of Systems: General: No recent weight changes, no fever, no sleep disturbances Respiratory: No cough, no shortness of air, no recurring pulmonary infections Cardiovascular/peripheral vascular: No chest pain, no palpitations, no edema, no shortness of breath Gastrointestinal: No new onset incontinence, normal bowel movements reported Genitourinary: No new onset incontinence Musculoskeletal: Low back pain, bilateral hip pain, buttocks pain, tailbone pain Psychiatric: [Normal mood/affect] Neurological: [Denies weakness in extremities], [denies balance issues] Pain at rest (0-10 scale): 6 Objective Objective:: Physical Exam: General: Alert and oriented x3, no acute distress, pleasant and cooperative Lungs: Respirations even and unlabored, symmetrical chest expansion Eyes: PERRL Musculoskeletal: Flexion and extension of lumbar [spine] somewhat guarded secondary to pain, [antalgic gait noted] point tenderness along bilateral SIs and bilateral greater trochanteric bursa's with positive bilateral Laurie's, Margarita's, Gaenslen's, compression and distraction exam Neurological: Speech clear, no gross sensory deficit Has patient had previous pain injection?: No Conservative treatment options previously tried: Home exercise plan Length of treatment: Longer than 12 weeks Meds Home Medications and Allergies Home Medications ?Medication ?Instructions ?Recorded ?Confirmed ?Type atorvastatin 40 mg tablet 40 mg PO HS 03/09/21 04/22/24 History clopidogrel 75 mg tablet 75 mg PO DAILY 03/09/21 04/22/24 History propranolol 80 mg tablet 80 mg PO BID 06/08/22 04/22/24 History rimegepant 75 mg disintegrating 75 mg PO Q OTHER DAY 06/08/22 04/22/24 History tablet (Nurtec ODT) tizanidine 4 mg tablet 4 mg PO BID PRN Pain 06/08/22 04/22/24 History paroxetine HCl 40 mg tablet (Paxil) 40 mg PO DAILY #30 tabs 10/03/22 04/22/24 Rx atogepant 60 mg tablet (Qulipta) 60 mg PO DAILY 01/27/24 04/22/24 History dapagliflozin propanediol 10 mg 10 mg PO DAILY 01/27/24 04/22/24 History tablet (Farxiga) gabapentin 600 mg tablet 600 mg PO DAILY 01/27/24 04/22/24 History levonorgestrel (Mirena) 21 mcg intrauterine DIRECTED 01/27/24 04/22/24 History CONTROLL ropinirole 0.25 mg tablet 0.25 mg PO DAILY 01/27/24 04/22/24 History solifenacin 10 mg tablet 10 mg PO DAILY 01/27/24 04/22/24 History trazodone 100 mg tablet 100 mg PO DAILY 01/27/24 04/22/24 History furosemide 20 mg tablet 20 mg PO DAILY 04/22/24 04/22/24 History semaglutide (weight loss) 1 mg/0.5 mg SQ 04/22/24 04/22/24 History mL subcutaneous pen injector (Wegovy) promethazine 25 mg rectal 25 mg [place] Q8 PRN sedation #12 ea 11/16/24 Rx suppository promethazine 25 mg tablet 25 mg PO Q6H PRN nausea and 11/16/24 Rx vomiting #20 tabs New Prescriptions to Start Prescriptions: Allergies Allergy/AdvReac Type Severity Reaction Status Date / Time No Known Allergies Allergy Verified 04/22/24 15:43 Assessment and Plan *Assessment and plan (1) Degenerative disc disease, lumbar: Status: Acute Category: Medical Code(s): M51.369 - Other intervertebral disc degeneration, lumbar region without mention of lumbar back pain or lower extremity pain (2) Bilateral sacroiliitis: Status: Acute Category: Medical Code(s): M46.1 - Sacroiliitis, not elsewhere classified (3) Greater trochanteric bursitis of both hips: Status: Acute Category: Medical Code(s): M70.61 - Trochanteric bursitis, right hip; M70.62 - Trochanteric bursitis, left hip Plan Patient is experiencing worsening pain along the low back and bilateral hips. Patient denies any radiating symptoms into her legs. They did have limited range of motion of the lumbar spine along with point tenderness along bilateral SI joints and bilateral greater trochanteric bursa's and a positive bilateral Laurie's, Margarita's, Gaenslen's, compression and distraction exam. I did discuss with the patient that I do believe they would benefit from bilateral SI injections. Risk and benefits were discussed with the patient and they would like to proceed forward with this option. Patient has tried and failed conservative therapy including continued at home stretching exercise for longer than 12 weeks that was physician guided. Patient has been experiencing this pain for longer than 3 months and was diagnosed with sacroiliitis in the past however we have not had any SI injections. I will order the patient an updated x-ray imaging of her lumbar and SI joints and plan to proceed forward with an MRI without contrast of her lumbar spine since it has been since 2019 one of her last advanced imaging. I will also send in a new order for the compounded cream. Patient will be scheduled for bilateral SI injections under fluoroscopy. Patient has been instructed to contact the clinic with any concerns before the next appointment. Dr. Cruz has reviewed this note and agrees with this plan of care. This note was dictated using voice recognition software and make contain errors or omissions. All injections are used with Lidocaine or Bupivacaine and Depo Medrol.
[2024-12-09 09:27] VITALS: BP 136/79; PULSE 76; RESP 18; O2SAT 100; BMI 28.3
--- NOTE | 2024-12-09 10:00 | XR_ITS ---
FINAL REPORT CLINICAL HISTORY: Low back pain x 4 years, radiates into bilateral legs, nki FINDINGS: SACROILIAC JOINTS SERIES Three views were obtained. No prior exam for comparison. There is no acute fracture or dislocation. Mild degenerative disease is noted. No ankylosis. No evidence of erosions. The visualized bony structures are well aligned. No soft tissue abnormality is seen. IMPRESSION: Degenerative changes without acute bony abnormality. Reviewed, Interpreted and Dictated by Anju Gar MD Transcribed by Angelita Almendarez Authenticated and [facility]
--- NOTE | 2024-12-09 10:00 | XR_ITS ---
FINAL REPORT CLINICAL HISTORY: Low back pain x 4 years, radiates into bilateral legs, nki FINDINGS: AP and lateral views of the lumbar spine were obtained. There is no prior exam for comparison. There is no acute fracture or malalignment. Vertebral body height is preserved. Disc space height is preserved. An IUD is noted in the pelvis. There is a moderate to large amount of retained stool. No acute paraspinal abnormality. IMPRESSION: No acute osseous abnormality of the lumbar spine. Reviewed, Interpreted and Dictated by Anju Gar MD Transcribed by Angelita Almendarez Authenticated and [facility]
== END 2024-12-09 23:59 | disposition home or self-care (01) ==
PROVIDERS: PCP Nurse Practitioner; Visit Provider Nurse Practitioner Family
DX: M51.369 Other intervertebral disc degeneration, lumbar region without mention of lumbar back pain or lower extremity pain (principal); M46.1 Sacroiliitis, not elsewhere classified; M70.61 Trochanteric bursitis, right hip; M70.62 Trochanteric bursitis, left hip; Z73.89 Other problems related to life management difficulty
CPT/HCPCS: 72100; 72202; 99202; G0463

== ENCOUNTER 2024-12-23 09:01 | Outpatient (CLI) | payer MEDICARE, MEDICAID, SELFPAY ==
--- NOTE | 2024-12-23 09:05 | MR_ITS ---
FINAL REPORT TECHNIQUE: Multiplanar MR without contrast CLINICAL HISTORY: chronic lbp, follow up from 2020 COMPARISON: None FINDINGS: Sagittal images show normal vertebral height. Alignment is normal. Marrow signal pattern is unremarkable. L1-2: Unremarkable L2-3: Unremarkable L3-4: Unremarkable L4-5: Moderate annular disc bulge. Mild facet overgrowth. Mild central canal stenosis. L5-S1: Mild annular disc bulge. Mild facet overgrowth. Mild neural foraminal narrowing without central canal stenosis. IMPRESSION: Degenerative changes most pronounced at L4-5 as above. Reviewed, Interpreted and Dictated by Cristina Byrne MD Transcribed by Angelita Almendarez Authenticated and [facility]
--- OUTSIDE RECORDS SUMMARY | 2024-12-24 21:53 | XMS_ITS | Data Portability ---
Author Organization [facility] Address [address] [place] [address] Care Team Providers Care Drilling Engineer Name Role Phone SYDNEY GRACE Primary Care Provider Assessment Encounter Date Assessment Date Assessment LastModified by Organization Details LastModified Time 11/26/2023 11/26/2023 We reviewed opti ons of management for irritative voiding symptoms and overactive bladder symptoms including anticholinergic therapy, beta agonist therapy, cystoscopy with chemical denervation of bladder with Botox, and neurostimulation. Trial of Myrbetriq. [email or web address] Not available 11/28/2023 11:49:20 01/09/2024 01/09/2024 We reviewed opti ons of management for irritative voiding symptoms and overactive bladder symptoms including anticholinergic therapy, beta agonist therapy, cystoscopy with chemical denervation of bladder with Botox, and neurostimulation. Start Vesicare to manage urge incontinence. [email or web address] Not available 01/10/2024 12:02:11 03/26/2024 03/26/2024 We reviewed patient's mixed urinary incontinence. Urge component is improved with Myrbetriq. She continues to have bothersome stress urinary incontinence. She has classic symptoms of female stress incontinence, possibly related to vaginal childbirth. We discussed options including mid urethral sling and Bulkamid injection. She wishes to proceed with Bulkamid injection. [email or web address] Not available 03/29/2024 18:31:39 05/14/2024 05/14/2024 DATE OF PROCEDUR E: 05/14/2024 PROCEDURE PERFORMED: Cystourethroscopy with injection of Bulkamid SURGEON: Darwin Becerra M.D. ANESTHESIA: General BLOOD LOSS: None PREOPERATIVE INDICATIONS: Stress urinary incontinence POSTOPERATIVE INDICATIONS: Stress urinary incontinence DESCRIPTION OF PROCEDURE: Patient was correctly identified in preoperative holding area. Informed consent was obtained. Risks and benefits were reviewed with patient. Patient was taken to procedure room and positioned supine position. Anesthesia induced. Repositioned to lithotomy position. All pressure points padded. Proper timeout procedure completed. Genitourinary area prepped and draped in the normal sterile fashion. Cystoscope advanced through the urethra. Bladder mucosa without evidence of erythema, papillary bladder mass, foreign body. Ureteral orifices in normal anatomic position. The injection needle was advance to 2 cm nadja and cystoscope was retract 2 cm from bladder neck. The needle was retracted to level with the cystoscope and then readvanced to 0.75 cm in submucosal fashion with bevel of needle toward midline. Bulkamid was injected (0.4 ml) to make submucosal pillow. This was performed at 2, 5, 7, and 10:00 positions in same plane. The remaining material was injected in any areas of less bulking. The urethra appeared to have good coaptation. Lidocaine gel was instilled for local analgesia. Patient tolerated procedure well. DISPOSITION: Patient was taken to the recovery in stable condition. Discharged home with instructions for outpatient follow-up. [email or web address] Not available 05/14/2024 11:12:50 06/25/2024 06/25/2024 Continue to iggy tor lower urinary symptoms. Myrbetriq for medical management of lower urinary symptoms. [email or web address] Not available 07/05/2024 23:20:59 Plan of Treatment Reminders Order Date Submit Date Provider Last Modified By Organization Details Last Modified Time Details Appointments RECHECK 2024 02:00P Jes BECERRA MD Not available Not available Not available Lab urinaly sis panel, auto 2023 024 [email or web address] [facility] With [address], [place], [address], 07/01/2024 08:08:53 urinaly sis panel, auto 2023 024 [email or web address] [facility] With [place] [address], [place], [address], 03/29/2024 18:31:42 urinaly sis panel, auto 2023 024 [email or web address] [facility] Extended Services With [facility], [address], [place], [address], 01/10/2024 12:02:13 urinaly sis panel, auto 2023 024 [email or web address] [facility] With [facility], [address], [facility] [address], [place], [address], 11/28/2023 11:49:22 Referral None recorde d. Procedures None recorde d. Surgeries endosco pic injecti on of implant materia l into the submuco chet tissues of the urethra and/or bladder (SURG) 2023 [email or web address], [address] [facility], [facility] [address], [place], [address], 04/22/2024 20:23:38 Imaging None recorde d. Medication Orders solifen acin 10 mg tablet 2023 024 [facility], [address] [place], [address], 01/09/2024 13:24:23 Myrbetr iq 50 mg tablet, extende d release 2023 024 GARETH [facility], [address] [place], [address], 11/26/2023 10:28:53 Patient TargetsNo targets recorded. Patient Instructions Encounter Date Encounter Id Patient Instructions Last Modified By Organization Details Last Modified Time 03/26/2024 [id number] learning about healthy weight [email or web address] Not available 03/29/2024 18:31:40 06/25/2024 [id number] learning about healthy weight [email or web address] Not available 07/01/2024 08:08:53 Reason for Referral None Reported. Results Created Date Observation Date Name Description Value Unit Range Abnormal Flag Note LastModifiedBy Organization Detail LastModifiedTime 11/26/19 24 11/26/2023 urina lysis panel , auto Unknown Analyte Clean Catch Not Available [facility] With [address], [place], [address], 11/26/2023 10:27:59 11/26/19 24 11/26/2023 urina lysis panel , auto Unknown Analyte Yellow Not Available [facility] With [address], [place], [address], 11/26/2023 10:27:59 11/26/19 24 11/26/2023 urina lysis panel , auto Unknown Analyte Clear Not Available [facility] With [address], [place], [address], 11/26/2023 10:27:59 11/26/19 24 11/26/2023 urina lysis panel , auto Unknown Analyte 1.010 Not Available [facility] With [address], [place], [address], 11/26/2023 10:27:59 11/26/19 24 11/26/2023 urina lysis panel , auto Unknown Analyte 1.003- 1.035 Not Available [facility] With [address], [place], [address], 11/26/2023 10:27:59 11/26/19 24 11/26/2023 urina lysis panel , auto Unknown Analyte 5.0 Not Available [facility] With [address], [place], [address], 11/26/2023 10:27:59 11/26/19 24 11/26/2023 urina lysis panel , auto Unknown Analyte 5.0-8. 0 Not Available [facility] With [facility] [address], [place], [address], 11/26/2023 10:27:59 11/26/19 24 11/26/2023 urina lysis panel , auto Unknown Analyte Negati ve Not Available [facility] With [facility] [address], [place], [address], 11/26/2023 10:27:59 11/26/19 24 11/26/2023 urina lysis panel , auto Unknown Analyte Negati ve Not Available [facility] [address], [place], [address], 11/26/2023 10:27:59 11/26/19 24 11/26/2023 urina lysis panel , auto Unknown Analyte Negati ve Not Available [facility] With [facility] [address], [place], [address], 11/26/2023 10:27:59 11/26/19 24 11/26/2023 urina lysis panel , auto Unknown Analyte Negati ve Not Available [facility] With [facility] [address], [place], [address], 11/26/2023 10:27:59 11/26/19 24 11/26/2023 urina lysis panel , auto Unknown Analyte Negati ve Not Available [facility] [address], [place], [address], 11/26/2023 10:27:59 11/26/19 24 11/26/2023 urina lysis panel , auto Unknown Analyte Negati ve Not Available [facility] [address], [place], [address], 11/26/2023 10:27:59 11/26/19 24 11/26/2023 urina lysis panel , auto Unknown Analyte >1000 mg/dl Not Available [facility] [address], [place], [address], 11/26/2023 10:27:59 11/26/19 24 11/26/2023 urina lysis panel , auto Unknown Analyte Normal Not Available [facility] [address], [place], [address], 11/26/2023 10:27:59 11/26/19 24 11/26/2023 urina lysis panel , auto Unknown Analyte Negati ve Not Available [facility] [address], [place], [address], 11/26/2023 10:27:59 11/26/19 24 11/26/2023 urina lysis panel , auto Unknown Analyte Negati ve Not Available [facility] With [facility] [address], [place], [address], 11/26/2023 10:27:59 11/26/19 24 11/26/2023 urina lysis panel , auto Unknown Analyte Normal Not Available [facility] [address], [place], [address], 11/26/2023 10:27:59 11/26/19 24 11/26/2023 urina lysis panel , auto Unknown Analyte Normal 1 mg/dl Not Available [facility] With [facility] [address], [place], [address], 11/26/2023 10:27:59 11/26/19 24 11/26/2023 urina lysis panel , auto Unknown Analyte Negati ve Not Available [facility] With [facility] [address], [place], [address], 11/26/2023 10:27:59 11/26/19 24 11/26/2023 urina lysis panel , auto Unknown Analyte Negati ve Not Available [facility] With [facility] [address], [place], [address], 11/26/2023 10:27:59 11/26/19 24 11/26/2023 urina lysis panel , auto Unknown Analyte Negati ve Not Available [facility] With [facility] [address], [place], [address], 11/26/2023 10:27:59 11/26/19 24 11/26/2023 urina lysis panel , auto Unknown Analyte Negati ve Not Available [facility] With [facility] [address], [place], [address], 11/26/2023 10:27:59 01/10/20 24 01/10/2024 urina lysis panel , auto Unknown Analyte Clean Catch Not Available [facility] With [address], [place], [address], 01/10/2024 08:55:27 01/10/20 24 01/10/2024 urina lysis panel , auto Unknown Analyte Yellow Not Available Count includes the [facility] Extended Services With [address] [place], [address], 01/10/2024 08:55:27 01/10/20 24 01/10/2024 urina lysis panel , auto Unknown Analyte Clear Not Available Count includes the [facility] Services With [address] [place], [address], 01/10/2024 08:55:27 01/10/20 24 01/10/2024 urina lysis panel , auto Unknown Analyte 1.010 Not Available Count includes the [facility] Extended Services With [address] [place], [address], 01/10/2024 08:55:27 01/10/20 24 01/10/2024 urina lysis panel , auto Unknown Analyte 1.003- 1.035 Not Available [facility] Services With [address] [place], [address], 01/10/2024 08:55:27 01/10/20 24 01/10/2024 urina lysis panel , auto Unknown Analyte 5.0 Not Available Count includes the [facility] Services With [address] [place], [address], 01/10/2024 08:55:27 01/10/20 24 01/10/2024 urina lysis panel , auto Unknown Analyte 5.0-8. 0 Not Available [facility] With [address] [place], [address], 01/10/2024 08:55:27 01/10/20 24 01/10/2024 urina lysis panel , auto Unknown Analyte Negati ve Not Available [facility] [place] [facility] With [address] [place], [address], 01/10/2024 08:55:27 01/10/20 24 01/10/2024 urina lysis panel , auto Unknown Analyte Negati ve Not Available [facility] Services With [address] [place], [address], 01/10/2024 08:55:27 01/10/20 24 01/10/2024 urina lysis panel , auto Unknown Analyte Negati ve Not Available [facility] Services With [address] [place], [address], 01/10/2024 08:55:27 01/10/20 24 01/10/2024 urina lysis panel , auto Unknown Analyte Negati ve Not Available [facility] Services With [address] [place], [address], 01/10/2024 08:55:27 01/10/20 24 01/10/2024 urina lysis panel , auto Unknown Analyte Negati ve Not Available [facility] Services With [address] [place], [address], 01/10/2024 08:55:27 01/10/20 24 01/10/2024 urina lysis panel , auto Unknown Analyte Negati ve Not Available [facility] Services With [address] [place], [address], 01/10/2024 08:55:27 01/10/20 24 01/10/2024 urina lysis panel , auto Unknown Analyte >1000 mg/dl Not Available [facility] Services With [address] [place], [address], 01/10/2024 08:55:27 01/10/20 24 01/10/2024 urina lysis panel , auto Unknown Analyte Normal Not Available Count includes the [facility] Services With [address], [place], [address], 01/10/2024 08:55:27 01/10/20 24 01/10/2024 urina lysis panel , auto Unknown Analyte Negati ve Not Available [facility] Services With [address] [place], [address], 01/10/2024 08:55:27 01/10/20 24 01/10/2024 urina lysis panel , auto Unknown Analyte Negati ve Not Available [facility] With [address] [place], [address], 01/10/2024 08:55:27 01/10/20 24 01/10/2024 urina lysis panel , auto Unknown Analyte Normal Not Available Count includes the [facility] Services With [address] [place], [address], 01/10/2024 08:55:27 01/10/20 24 01/10/2024 urina lysis panel , auto Unknown Analyte Normal 1 mg/dl Not Available [facility] With [address] [place], [address], 01/10/2024 08:55:27 01/10/20 24 01/10/2024 urina lysis panel , auto Unknown Analyte Negati ve Not Available [facility] With [address] [place], [address], 01/10/2024 08:55:27 01/10/20 24 01/10/2024 urina lysis panel , auto Unknown Analyte Negati ve Not Available [facility] Services With [address] [place], [address], 01/10/2024 08:55:27 01/10/20 24 01/10/2024 urina lysis panel , auto Unknown Analyte Negati ve Not Available [facility] With [address] [place], [address], 01/10/2024 08:55:27 01/10/20 24 01/10/2024 urina lysis panel , auto Unknown Analyte Negati ve Not Available [facility] Services With [address] [place], [address], 01/10/2024 08:55:27 03/26/20 24 03/26/2024 urina lysis panel , auto Unknown Analyte Clean Catch Not Available [facility] With [address] [place], [address], 03/26/2024 15:22:33 03/26/20 24 03/26/2024 urina lysis panel , auto Unknown Analyte Yellow Not Available Count includes the [facility] Extended Services With [address] [place], [address], 03/26/2024 15:22:33 03/26/20 24 03/26/2024 urina lysis panel , auto Unknown Analyte Clear Not Available Count includes the [facility] Extended Services With [address] [place], [address], 03/26/2024 15:22:33 03/26/20 24 03/26/2024 urina lysis panel , auto Unknown Analyte 1.020 Not Available Count includes the [facility] Extended Services With [address] [place], [address], 03/26/2024 15:22:33 03/26/20 24 03/26/2024 urina lysis panel , auto Unknown Analyte 1.003- 1.035 Not Available [facility] With [address], [place], [address], 03/26/2024 15:22:33 03/26/20 24 03/26/2024 urina lysis panel , auto Unknown Analyte 5.0 Not Available Count includes the [facility] Services With [address], [place], [address], 03/26/2024 15:22:33 03/26/20 24 03/26/2024 urina lysis panel , auto Unknown Analyte 5.0-8. 0 Not Available [facility] With [address], [place], [address], 03/26/2024 15:22:33 03/26/20 24 03/26/2024 urina lysis panel , auto Unknown Analyte Negati ve Not Available [facility] With [address], [place], [address], 03/26/2024 15:22:33 03/26/20 24 03/26/2024 urina lysis panel , auto Unknown Analyte Negati ve Not Available [facility] With [address], [place], [address], 03/26/2024 15:22:33 03/26/20 24 03/26/2024 urina lysis panel , auto Unknown Analyte Negati ve Not Available [facility] Services With [address], [place], [address], 03/26/2024 15:22:33 03/26/20 24 03/26/2024 urina lysis panel , auto Unknown Analyte Negati ve Not Available [facility] Services With [address], [place], [address], 03/26/2024 15:22:33 03/26/20 24 03/26/2024 urina lysis panel , auto Unknown Analyte Trace Not Available Count includes the [facility] Extended Services With [address] [place], [address], 03/26/2024 15:22:33 03/26/20 24 03/26/2024 urina lysis panel , auto Unknown Analyte Negati ve Not Available [facility] Services With [address] [place], [address], 03/26/2024 15:22:33 03/26/20 24 03/26/2024 urina lysis panel , auto Unknown Analyte >1000 mg/dl Not Available [facility] With [address] [place], [address], 03/26/2024 15:22:33 03/26/20 24 03/26/2024 urina lysis panel , auto Unknown Analyte Normal Not Available Count includes the [facility] Extended Services With [address] [place], [address], 03/26/2024 15:22:33 03/26/20 24 03/26/2024 urina lysis panel , auto Unknown Analyte Negati ve Not Available [facility] With [address] [place], [address], 03/26/2024 15:22:33 03/26/20 24 03/26/2024 urina lysis panel , auto Unknown Analyte Negati ve Not Available [facility] Services With [address] [place], [address], 03/26/2024 15:22:33 03/26/20 24 03/26/2024 urina lysis panel , auto Unknown Analyte Normal Not Available Count includes the [facility] Extended Services With [address], [place], [address], 03/26/2024 15:22:33 03/26/20 24 03/26/2024 urina lysis panel , auto Unknown Analyte Normal 1 mg/dl Not Available [facility] With [address], [place], [address], 03/26/2024 15:22:33 03/26/20 24 03/26/2024 urina lysis panel , auto Unknown Analyte Negati ve Not Available [facility] With [address] [place], [address], 03/26/2024 15:22:33 03/26/20 24 03/26/2024 urina lysis panel , auto Unknown Analyte Negati ve Not Available [facility] With [address], [place], [address], 03/26/2024 15:22:33 03/26/20 24 03/26/2024 urina lysis panel , auto Unknown Analyte Negati ve Not Available [facility] With [address] [place], [address], 03/26/2024 15:22:33 03/26/20 24 03/26/2024 urina lysis panel , auto Unknown Analyte Negati ve Not Available [facility] Services With [address], [place], [address], 03/26/2024 15:22:33 05/14/20 24 05/14/2024 POTAS SIUM potassium 3.9 mmol/ L 3.4-5. 0 normal Not Available [facility] [address] [place] [address] [place], [address], 05/14/2024 07:14:03 05/14/20 24 05/14/2024 urina lysis panel , auto Unknown Analyte Clean Catch Not Available [facility] Surgery Schedule [address] [place], [address], 05/14/2024 07:16:20 05/14/20 24 05/14/2024 urina lysis panel , auto Unknown Analyte Yellow Not Available [facility] Surgery Schedule [address] [place], [address], 05/14/2024 07:16:20 05/14/20 24 05/14/2024 urina lysis panel , auto Unknown Analyte Clear Not Available [facility] Surgery Schedule [address] [place], [address], 05/14/2024 07:16:20 05/14/20 24 05/14/2024 urina lysis panel , auto Unknown Analyte 1.025 Not Available [facility] Surgery Schedule [address] [place], [address], 05/14/2024 07:16:20 05/14/20 24 05/14/2024 urina lysis panel , auto Unknown Analyte 6.0 Not Available [facility] Surgery Schedule [address] [place], [address], 05/14/2024 07:16:20 05/14/20 24 05/14/2024 urina lysis panel , auto Unknown Analyte Negati ve Not Available [facility] Surgery Schedule [address] [place], [address], 05/14/2024 07:16:20 05/14/20 24 05/14/2024 urina lysis panel , auto Unknown Analyte Negati ve Not Available [facility] Surgery Schedule [address] [place], [address], 05/14/2024 07:16:20 05/14/20 24 05/14/2024 urina lysis panel , auto Unknown Analyte Negati ve Not Available [facility] Surgery Schedule [address] [place], [address], 05/14/2024 07:16:20 05/14/20 24 05/14/2024 urina lysis panel , auto Unknown Analyte >1000 mg/dl Not Available [facility] Surgery Schedule [address] [place], [address], 05/14/2024 07:16:20 05/14/20 24 05/14/2024 urina lysis panel , auto Unknown Analyte Negati ve Not Available [facility] Surgery Schedule [address] [place], [address], 05/14/2024 07:16:20 05/14/20 24 05/14/2024 urina lysis panel , auto Unknown Analyte 1 mg/dl Not Available [facility] Surgery Schedule [address] [place], [address], 05/14/2024 07:16:20 05/14/20 24 05/14/2024 urina lysis panel , auto Unknown Analyte 1 mg/dl (+) Not Available [facility] Schedule [address] [place], [address], 05/14/2024 07:16:20 05/14/20 24 05/14/2024 urina lysis panel , auto Unknown Analyte 50 Honorio/ul Not Available [facility] Schedule [address] [place], [address], 05/14/2024 07:16:20 06/25/20 24 06/25/2024 urina lysis panel , auto Unknown Analyte Clean Catch Not Available [facility] [place] [facility] With [address], [place], [address], 06/25/2024 12:40:24 06/25/20 24 06/25/2024 urina lysis panel , auto Unknown Analyte Yellow Not Available [facility] [place] [facility] With [address], [place], [address], 06/25/2024 12:40:24 06/25/2006/25/2024 urina lysis panel , auto Unknown Analyte Clear Not Available Count includes the [facility] Extended Services With [address], [place], [address], 06/25/2024 12:40:24 06/25/20 24 06/25/2024 urina lysis panel , auto Unknown Analyte 1.015 Not Available Count includes the [facility] Extended [facility] With [address], [place], [address], 06/25/2024 12:40:24 06/25/20 24 06/25/2024 urina lysis panel , auto Unknown Analyte 1.003- 1.035 Not Available [facility] Extended [facility] With [address], [place], [address], 06/25/2024 12:40:24 06/25/20 24 06/25/2024 urina lysis panel , auto Unknown Analyte 5.0 Not Available Count includes the [facility] Extended [facility] With [address], [place], [address], 06/25/2024 12:40:24 06/25/20 24 06/25/2024 urina lysis panel , auto Unknown Analyte 5.0-8. 0 Not Available [facility] With [address], [place], [address], 06/25/2024 12:40:24 06/25/2006/25/2024 urina lysis panel , auto Unknown Analyte Negati ve Not Available [facility] [address] [place], [address], 06/25/2024 12:40:24 06/25/20 24 06/25/2024 urina lysis panel , auto Unknown Analyte Negati ve Not Available [facility] With [address], [place], [address], 06/25/2024 12:40:24 06/25/20 24 06/25/2024 urina lysis panel , auto Unknown Analyte Negati ve Not Available [facility] With [address], [place], [address], 06/25/2024 12:40:24 06/25/2006/25/2024 urina lysis panel , auto Unknown Analyte Negati ve Not Available [facility] With [address], [place], [address], 06/25/2024 12:40:24 06/25/2006/25/2024 urina lysis panel , auto Unknown Analyte Negati ve Not Available [facility] With [address], [place], [address], 06/25/2024 12:40:24 06/25/20 24 06/25/2024 urina lysis panel , auto Unknown Analyte Negati ve Not Available [facility] With [address], [place], [address], 06/25/2024 12:40:24 06/25/2006/25/2024 urina lysis panel , auto Unknown Analyte >1000 mg/dl Not Available [facility] With [address], [place], [address], 06/25/2024 12:40:24 06/25/2006/25/2024 urina lysis panel , auto Unknown Analyte Normal Not Available Count includes the [facility] Extended Services With [address], [place], [address], 06/25/2024 12:40:24 06/25/2006/25/2024 urina lysis panel , auto Unknown Analyte Negati ve Not Available [facility] With [address] [place], [address], 06/25/2024 12:40:24 06/25/2006/25/2024 urina lysis panel , auto Unknown Analyte Negati ve Not Available [facility] With [address] [place], [address], 06/25/2024 12:40:24 06/25/20 24 06/25/2024 urina lysis panel , auto Unknown Analyte Normal Not Available Count includes the [facility] Extended [facility] With [address] [place], [address], 06/25/2024 12:40:24 06/25/2006/25/2024 urina lysis panel , auto Unknown Analyte Normal 1 mg/dl Not Available [facility] With [address], [place], [address], 06/25/2024 12:40:24 06/25/20 24 06/25/2024 urina lysis panel , auto Unknown Analyte Negati ve Not Available [facility] With [address] [place], [address], 06/25/2024 12:40:24 06/25/2006/25/2024 urina lysis panel , auto Unknown Analyte Negati ve Not Available [facility] [address] [place], [address], 06/25/2024 12:40:24 06/25/20 24 06/25/2024 urina lysis panel , auto Unknown Analyte Negati ve Not Available [facility] [place] [facility] With [address], [place], [address], 06/25/2024 12:40:24 06/25/20 24 06/25/2024 urina lysis panel , auto Unknown Analyte Negati ve Not Available [facility] With [address], [place], [address], 06/25/2024 12:40:24 Result Notes None recorded. Medical Equipment None Reported. Allergies No known drug allergies Medications Name Sig Start Date Stop Date Status Note LastModified by Organization Details LastModified Time gabapentin 600 mg tablet Take 1 tablet 3 times a day by oral route. active Not Available Not Available No t Available propranolol 80 mg tablet Take 1 tablet twice a day by oral route. active Not Available Not Available No t Available trazodone 50 mg tablet Take 1 tablet every day by oral route. active Not Available Not Available No t Available Plavix 75 mg tablet Take 1 tablet every day by oral route. active Not Available Not Available No t Available Paxil 40 mg tablet Take 1 tablet every day by oral route. active Not Available Not Available No t Available Lipitor 40 mg tablet Take 1 tablet every day by oral route. active Not Available Not Available No t Available solifenacin 10 mg tablet Take 1 tablet every day by oral route for 90 days. 024 active Not Available Not Available Not Avai lable Myrbetriq 50 mg tablet,extend ed release Take 1 tablet every day by oral route for 90 days. 024 active Not Available Not Available Not Avai lable Farxiga 10 mg tablet Take 1 tablet every day by oral route. active Not Available Not Available No t Available Nurtec ODT active Not Available Not Av ailable Not Available Wegovy active Not Available Not Availa ble Not Available Qulipta 60 mg tablet Take 1 tablet every day by oral route. active Not Available Not Available No t Available Vitals Date Recorded Body height Body mass index (BMI) Body weight Provider Name and Address Organization Details Last Updated DateTime 11/26/2023 162.56 cm 36 kg/m2 09773.4 g Georgina Trejo [facility] 11/26/2023 11:07:37 Date Recorded Body height Body mass index (BMI) Body weight Provider Name and Address Organization Details Last Updated DateTime 01/09/2024 162.56 cm 36.2 kg/m2 21423.99 g Georgina Trejo [facility] 01/10/2024 08:55:06 Date Recorded Body height Body mass index (BMI) Body weight Provider Name and Address Organization Details Last Updated DateTime 03/26/2024 162.56 cm 34.3 kg/m2 78996.47 g Sedrick Buenot [facility] 03/26/2024 15:21:07 Date Recorded Body height Body mass index (BMI) Body weight Provider Name and Address Organization Details Last Updated DateTime 06/25/2024 162.56 cm 30 kg/m2 27872.66 [facility] 06/25/2024 18:12:00 Social History Question Answer Notes LastModified by Transaction Wireless ion Details LastModified Time Tobacco Smoking Status Former Smoker quit in 2020 Georgina Trejo [facility] 11/26/2023 11:10:11 What Was The Date Of Your Most Recent Tobacco Screening? 03/26/2024 [email or web address] Information not available 03/26/2024 Sex: Female Functional Status None recorded. Mental Status None recorded. Family History Relationship Description Onset Age of this Age Resolved Age Notes LastModified by Organization Details LastModified Time Mother Diabetes mellitus [email or web address] Not available 2023 11:09:41 Mother Family history of malignant neoplasm [email or web address] Not available 2023 11:09:54 Maternal Grandfather Diabetes mellitus [email or web address] Not available 2023 11:09:41 Maternal Grandfather Family history of malignant neoplasm [email or web address] Not available 2023 11:09:54 Maternal Grandmother Diabetes mellitus [email or web address] Not available 2023 11:09:41 Paternal Grandmother Family history of malignant neoplasm [email or web address] Not available 2023 11:09:54 Medical History Condition Response False Teeth Y Stroke Y Sleep Apnea Y Gynecological HistoryNo gynecological history recorded. Obstetrics History GPAL:G 0 P 0 0 0 0 Past Encounters Encounter ID Performer Location Encounter Start Date Encounter Closed Date Diagnosis/Indication Diagnosis SNOMED-CT Code Diagnosis ICD10 Code Diagnosis Note [id number] [facility] [address] [facility] [place] [address] 11/26/2023 09:14:38 11/26/2023 10:30:27 Urge incontinence of urine 36970913 N39.41 Overactive urinary bladder 333027616 N32.81 [id number] [facility] [address] ,[place] [address] 01/09/2024 12:57:55 01/11/2024 04:04:52 Urge incontinence of urine 47514455 N39.41 Overactive urinary bladder 771053570 N32.81 [id number] [facility] [address] [place] [address] ,[place] [phone] 03/26/2024 14:02:04 03/26/2024 19:09:31 Overactive urinary bladder 796461757 N32.[address] incontinence 79177999 N39.3 [id number] DARWIN BECERRA MD SURGERY SCHEDULE [address] [place] [address] 05/14/2024 06:09:58 05/14/2024 06:11:27 [id number] DARWIN BECERRA MD [facility] [address] [place] [address] ,[place] [address] 06/25/2024 14:14:48 06/25/2024 18:44:49 Overactive urinary bladder 194879071 N32.81 bulkamid 05/14/24 Female str ess incontinence 51362028 N39.3 bulkamid 05/14/24 Health Concerns Section Related Observation LastModified by Organization Detai ls LastModified Time None Recorded Concern Status LastModified by Organization Details LastModified Time None Recorded Advance Directives Directive None Recorded Payers Encounter Date Sequence Insurance Name Policy Number Policy Benavides Covered Member ID Benavides Member ID Guarantor Name 11/26/2023 1 [place] Faby Bustamante [id number] Faby Bustamante 11/26/2023 2 [facility] (MEDICAID HMO) Faby Sahu [id number] Faby Bustamante 01/09/2024 1 [place] Faby Bustamante [id number] Faby Bustamante 01/09/2024 2 [facility] (MEDICAID HMO) Faby Sahu [id number] Faby Bustamante 03/26/2024 1 [place] Faby Bustamante [id number] Faby Bustamante 05/14/2024 1 [employer] (MEDICARE REPLACEMENT HMO) Faby Bustamante [id number] Faby Bustamante 06/25/2024 1 [employer] (MEDICARE REPLACEMENT HMO) Faby Bustamante [id number] Faby Bustamante Notes Date Note Type Note Provider Name and Address Organization Details Recorded Time 11/26/2023 text/html 43 y/o female is in the office as a new patient for my initial evaluation and discussion of urinary incontinence. She has a history of stroke in 11/2020. She has concern of neurologic disease, likely MS. Patient c/o frequency, urgency, stress incontinence, and urge incontinence. Nocturia 3-4x, daytime frequency every 2 hours, no hesitancy, no dysuria, no hematuria. She was seen by Dr. Dupont and was prescribed Detrol which did not work. DARWIN BECERRA MD [address] [place] [address], [phone], [facility] 11/28/2023 11:49:50 01/09/2024 text/html 43-year-old fema le in the office for follow-up evaluation and discussion of urinary incontinence. She has a history of stroke in 11/2020. She has concern of neurologic disease, likely MS. She is currently taking Myrbetriq to manage urge incontinence. Symptoms are unchanged. She voids every 2-3 hours with nocturia twice nightly. No gross hematuria or dysuria. She continues to have symptoms of urgency. DARWIN BECERRA MD [address] [place] [address], [phone], [facility] 01/10/2024 12:02:29 03/26/2024 text/html 43-year-old isela toribio in the office for follow-up evaluation and discussion of urinary incontinence. She has a history of stroke in 11/2020. She has concern of neurologic disease, likely MS. She is currently taking Myrbetriq to manage urge incontinence. Patient reports she has continued stress incontinence. She reports improvement in frequency, improvement in nocturia 1x, improvement in urgency and urgency incontinence. She reports bothersome female stress urinary incontinence. She uses a protective pad, one child, vaginal delivery. DARWIN BECERRA MD [address] [place] [address], [phone], [facility] 03/29/2024 18:31:54 06/25/2024 text/html 43-year-old isela toribio in the office for follow-up s/p cystourethroscopy with injection of Bulkamid on 05/14/24. She reports recent upper respiratory infection with strong coughing with some associated stress incontinence. She denies dysuria and hematuria. She has a history of stroke in 11/2020. She has concern of neurologic disease, likely MS. She is currently taking Myrbetriq to manage urge incontinence. DARWIN BECERRA MD [address] [place] [address], [phone], [facility] 07/05/2024 23:21:42 OBGyn Episode No OBEpisode recorded.
--- OUTSIDE RECORDS SUMMARY | 2024-12-24 21:53 | XMS_ITS | Data Portability ---
Author Organization [facility] Address [address] [place] [address] Assessment No assessment recorded. Plan of Treatment Reminders Order Date Submit Date Provider Last Modified By Organization Details Last Modified Time Details Appointments None recorded. Lab urinalysis , dipstick 2022 023 [email or web address] [facility], [address] [place] [address], [phone], 10:39:00 Referral None recorded. Procedures None recorded. Surgeries None recorded. Imaging None recorded. Medication Orders None recorded. Patient TargetsNo targets recorded. Patient InstructionsNo instructions recorded. Reason for Referral None Reported. Results Created Date Observation Date Name Description Value Unit Range Abnormal Flag Note LastModifiedBy Organization Detail LastModifiedTime 10/04/1910/04/2022 urina lysis , dipst ick Leukocytes (reference range) negati ve Not Available [facility] [address] [place] [address], [phone], 10/04/2022 09:21:05 10/04/19 23 10/04/2022 urina lysis , dipst ick Nitrite (reference range:) negati ve Not Available [facility] [address] [place] [address], [phone], 10/04/2022 09:21:05 10/04/19 23 10/04/2022 urina lysis , dipst ick Urobilinogen (reference range) 1 Not Available [address], [address], 10/04/2022 09:21:05 10/04/19 23 10/04/2022 urina lysis , dipst ick Protein (reference range) negati ve Not Available [address], [address], 10/04/2022 09:21:05 10/04/19 23 10/04/2022 urina lysis , dipst ick pH (reference range 5-8.5) 6.5 Not Available [address], [address], 10/04/2022 09:21:05 10/04/19 23 10/04/2022 urina lysis , dipst ick Blood (reference range:) negati ve Not Available [address], [address], 10/04/2022 09:21:05 10/04/19 23 10/04/2022 urina lysis , dipst ick Specific [place] (reference range) 1.025 Not Available [address], [phone], 10/04/2022 09:21:05 10/04/19 23 10/04/2022 urina lysis , dipst ick Ketone (reference range) negati ve Not Available [address], [address], 10/04/2022 09:21:05 10/04/19 23 10/04/2022 urina lysis , dipst ick Bilirubin (reference range) negati ve Not Available [address], [address], 10/04/2022 09:21:05 10/04/19 23 10/04/2022 urina lysis , dipst ick Glucose (reference range) negati ve Not Available [facility] [address] [place] [address], [place], [address], 10/04/2022 09:21:05 Result Notes None recorded. Problems Name Problem SNOMED Code Status Onset Date Resolution Date Notes Provider Name and Address Organization Details Recorded Time Acute stroke 1404635058835 04 Active 2022 Arcelia fair, ROSCOE - [facility] - [place] & [place] 3 09:00:03 Environment al allergy 157364004 Active 2022 Arcelia fair, ROSCOE - [facility] - [place] & [place] 3 09:00:11 Asthma 665710559 Active 2022 Arcelia fair, ROSCOE - [facility] - [place] & [place] 3 09:00:19 Anxiety 08676243 Active 2022 Arcelia fair, ROSCOE Valdez [facility] - [place] & [place] 3 09:00:28 Problem Notes None recorded. Procedures Surgical History Date Name Laterality Status Provider Name and Address Organization Details Recorded Time closure of patent foramen ovale completed Arcelia Valdez [facility] - [place] & [place] 10/04/2022 09:01:09 Imaging Results None recorded. Procedure Notes None recorded. Medical Equipment None Reported. Allergies No known drug allergies Medications Name Sig Start Date Stop Date Status Note LastModified by Organization Details LastModified Time fluoxetine 40 mg capsule TAKE 1 CAPSULE BY MOUTH EVERY DAY active Not Available Not Available No t Available amoxicillin 500 mg capsule TAKE 1 CAPSULE 3 TIMES EACH DAY FOR 10 DAYS 10/04 completed Not Available Not Available Not Available atorvastati n 40 mg tablet TAKE 1 TABLET BY MOUTH EVERY DAY AT NIGHT active Not Available Not Available No t Available promethazin e-DM 6.25 mg-15 mg/5 mL oral syrup TAKE 5 ML BY MOUTH EVERY 6 HOURS NEEDED FOR COUGH active Not Available Not Available No t Available prednisone 10 mg tablet TAKE 1 TABLET (10 MG) BY ORAL ROUTE 3 TIMES PER DAY X3 DAYS active Not Available Not Available No t Available propranolol 80 mg tablet TAKE 1 TABLET TWICE A DAY active Not Available Not Available No t Available paroxetine 10 mg tablet TAKE 1 TABLET BY MOUTH EVERY DAY 10/04 completed Not Available Not Available Not Available trazodone 50 mg tablet TAKE 1 TABLET 1 TIME EACH DAY AT BEDTIME active Not Available Not Available No t Available azithromyci n 250 mg tablet TAKE 2 TABLETS BY MOUTH TODAY, THEN TAKE 1 TABLET DAILY FOR 4 DAYS active Not Available Not Available No t Available tizanidine 4 mg tablet TAKE 1 TABLET BY MOUTH TWICE A DAY NEEDED active Not Available Not Available No t Available promethazin e 25 mg rectal suppository INSERT 1 SUPPOSITO RY RECTALLY EVERY 6 HOURS NEEDED FOR NAUSEA AND VOMITING 10/04 completed Not Available Not Available Not Available fluoxetine 10 mg tablet TAKE 2 TABLETS BY MOUTH FOR 7 DAYS AND THEN TAKE 1 TABLET BY MOUTH FOR 7 DAYS AND THEN STOP 10/04 completed Not Available Not Available Not Available clopidogrel 75 mg tablet TAKE 1 TABLET BY MOUTH EVERY DAY active Not Available Not Available No t Available amoxicillin 500 mg tablet TAKE 1 TABLET BY MOUTH THREE TIMES A DAY 10/04 completed Not Available Not Available Not Available lamotrigine 25 mg tablet TAKE 1 TABLET BY MOUTH EVERY DAY active Not Available Not Available No t Available promethazin e 12.5 mg rectal suppository INSERT 1 SUPPOSITO RY INTO THE RECTUM EVERY 6 HOURS NEEDED active Not Available Not Available No t Available ropinirole 0.25 mg tablet TAKE 1 TABLET BY MOUTH EVERYDAY AT BEDTIME active Not Available Not Available No t Available paroxetine 20 mg tablet TAKE 1 TABLET BY MOUTH EVERY DAY active Not Available Not Available No t Available oseltamivir 75 mg capsule TAKE 1 CAPSULE BY MOUTH TWICE A DAY active Not Available Not Available No t Available gabapentin 300 mg capsule TAKE 2 CAPSULES BY MOUTH TWICE A DAY active Not Available Not Available No t Available codeine 10 mg-guaifene sin 100 mg/5 mL oral liquid TAKE 10 ML EVERY 4 TO 6 HOURS NEEDED FOR COUGH active Not Available Not Available No t Available methylpredn isolone 4 mg tablets in a dose pack TAKE DIRECTED ON PACKAGE active Not Available Not Available No t Available paroxetine 40 mg tablet TAKE 1 TABLET 1 TIME EACH DAY active Not Available Not Available No t Available bromphenira mine-pseudo ephedrine-D M 2 mg-30 mg-10 mg/5 mL oral syrup TAKE 10 MILLILITE RS BY MOUTH EVERY 4 HOURS NEEDED FOR COUGH active Not Available Not Available No t Available ondansetron 4 mg disintegrat ing tablet DISSOLVE 1 TABLET ON THE TONGUE THEN SWALLOW EVERY 4-6 HOUR NEEDED FOR NAUSEA AND VOMITING active Not Available Not Available No t Available diazepam 5 mg tablet TAKE ONE TABLET 30 MINUTES BEFORE MRI active Not Available Not Available No t Available amoxicillin 500 mg-potbensoniu m clavulanate 125 mg tablet TAKE 1 TABLET BY MOUTH EVERY 12 HOURS active Not Available Not Available No t Available hydroxyzine pamoate 25 mg capsule TAKE 1 CAPSULE BY MOUTH 3 TIMES A DAY NEEDED FOR ANXIETY active Not Available Not Available No t Available duloxetine 60 mg capsule,del ayed release TAKE 1 CAPSULE BY MOUTH EVERY DAY active Not Available Not Available No t Available ProAir HFA 90 mcg/actuati on aerosol inhaler INHALE 1 - 2 PUFFS BY MOUTH EVERY 4 HOURS NEEDED active Not Available Not Available No t Available Sudogest 12-hour 120 mg tablet,exte nded release TAKE 1 TABLET EVERY 12 HOURS NEEDED FOR CONGESTIO N active Not Available Not Available No t Available Nurtec ODT 75 mg disintegrat ing tablet active Not Available Not Available N ot Available Vitals Date Recorded Body height Body mass index (BMI) Body weight Body temperature Provider Name and Address Organization Details Last Updated DateTime 10/04/2022 162.56 cm 37.1 kg/m2 19969.95 g 97.7 [degF] Arcelia Crooks [facility] [facility] & [place] 10/04/2022 08:57:58 Social History Question Answer Notes LastModified by Organizat ion Details LastModified Time Tobacco Smoking Status Former Smoker Arcelia Crooks [facility], [place] [facility] & [place] 10/04/2022 09:00:58 What Is Your Level Of Alcohol Consumption? None Information not available 10/04/2022 Sex: Unknown Functional Status None recorded. Mental Status None recorded. Family History Relationship Description Onset Age of this Age Resolved Age Notes LastModified by Organization Details LastModified Time Brother Family history unknown [email or web address] Not available 2022 09:00:48 Father Family history unknown [email or web address] Not available 2022 09:00:48 Mother Family history unknown [email or web address] Not available 2022 09:00:48 Medical History No medical history recorded. Gynecological HistoryNo gynecological history recorded. Obstetrics History GPAL:G 0 P 0 0 0 0 Past Encounters Encounter ID Performer Location Encounter Start Date Encounter Closed Date Diagnosis/Indication Diagnosis SNOMED-CT Code Diagnosis ICD10 Code Diagnosis Note [id number] Noe Dupont Jr, MD [facility] [address] [facility] [id number] 10/04/2022 08:38:28 10/04/2022 09:20:22 Urinary incontinence 804785510 R32 Patient with history of mild stress incontinen ce with recent worsening of nighttime incontinen ce including enuresis. We are going to place her on a course of Gemtesa samples for the nighttime leakage and see her back in 6 weeks. We also discussed a restrictio n of fluids prior to bedtime. Urinalysis today is unremarkab le. Health Concerns Section Related Observation LastModified by Organization Detai ls LastModified Time None Recorded Concern Status LastModified by Organization Details LastModified Time None Recorded Advance Directives Directive None Recorded Payers Encounter Date Sequence Insurance Name Policy Number Policy Benavides Covered Member ID Benavides Member ID Guarantor Name 10/04/2022 1 [facility] (MEDICAID HMO) Faby Bustamante [id number] Faby Bustamante Notes Date Note Type Note Provider Name and Address Organization Details Recorded Time 10/04/2022 text/html Patient is a 42-year-old white female with a history of stress incontinence. She was previously seen at [facility]. She was last seen in November 2021. That time she had leakage with stress maneuvers such as sneezing, coughing and exercising. She denied any leakage with urgency. She was wearing 2 panty liners a day at that time. Past medical history significant for a patent foramen ovale and she is on Plavix. We had discussed treatment options at that time including conservative versus surgical options. She opted for conservative options with [facility]eg[facility]. she returns today stating that her leakage has been worse over the past couple of weeks. She is having some leakage at night requiring pad use where she had previously not had this problem. She states that the stress urinary incontinence is about the same. She continues on Plavix but is off of the aspirin. Noe Dupont Jr, MD [address] [place] [address], [address], [place], [address], [facility] & [place] 10/04/2022 10:14:04 OBGyn Episode No OBEpisode recorded.
== END 2024-12-23 23:59 | disposition home or self-care (01) ==
LOC: RAD 09:03
PROVIDERS: PCP Nurse Practitioner; Visit Provider Nurse Practitioner Family
DX: M51.360 Other intervertebral disc degeneration, lumbar region with discogenic back pain only (principal)
CPT/HCPCS: 72148

== ENCOUNTER 2024-12-29 13:05 | Day surgery (SDC) | payer MEDICARE, MEDICAID, SELFPAY ==
[2024-12-29 13:22] VITALS: BP 113/74; PULSE 91; RESP 16; TEMP 36.4; O2SAT 100; BMI 29.2
[2024-12-29] MEDS: BUPIVACAINE 0.25% 10ML INJ 25 MG IJ (13:35)
[2024-12-29 13:36] VITALS: BP 159/72; PULSE 91; RESP 18; O2SAT 97
[2024-12-29] MEDS: LIDOCAINE 1% 5ML PF VIAL 5 ML (13:36)
[2024-12-29] MEDS: methylPREDNISolone ACETATE 80MG/ML VIAL 80 MG (13:36)
[2024-12-29 13:37] VITALS: BP 159/72; PULSE 91; RESP 18; O2SAT 97
[2024-12-29 13:40] VITALS: BP 120/61; PULSE 82; RESP 16; O2SAT 100
--- NOTE | 2024-12-29 13:46 | P.PCN_ITS ---
Procedure Date: 12/29/24 Time: 13:15 Anesthesiologist:: Earl Ott CRNA Complications:: None Pre-procedure Diagnosis:: Bilateral sacroiliitis Post-procedure Diagnosis:: Same Indications for Procedure:: Patient is a pleasant 44-year-old female comes our clinic today for bilateral sacroiliac joint injection of cortisone and local anesthetic. Patient describes low lumbar back pain across the lumbar spine. Bilateral posterior hip pain. Difficulty transitioning from sitting to standing. Difficulty with lumbar flexion. She rates her pain 6/10. Procedure Details:: Procedure: Bilateral sacroiliac joint injections under fluoroscopy Informed consent was obtained and the risks and benefits of the procedure were explained to the patient.~ The patient was taken to the procedure room and noninvasive monitors were placed including a noninvasive blood pressure cuff and pulse oximeter.~ The patient was placed prone on the procedure table. Both hips were cleansed using Betadine as a cleansing solution. C-arm fluoroscopy was used to view the right sacroiliac joint.~ The skin and subcutaneous tissues were anesthetized using lidocaine 1.5% and a 25-gauge needle.~ After this, a 22-gauge spinal needle was inserted under fluoroscopic guidance into the inferior aspect of the right sacroiliac joint.~ Omnipaque dye was injected and good spread was seen throughout the joint.~ After this, approximately 5 mL of bupivacaine, 0.25% and Depo-Medrol, 40 mg was incrementally injected into the right sacroiliac joint. We then moved to the left sacroiliac joint.~ The skin and subcutaneous tissues were anesthetized using lidocaine 1.5% and a 25-gauge needle.~ After this, a 22- gauge spinal needle was inserted under fluoroscopic guidance into the inferior aspect of the left sacroiliac joint.~ Omnipaque dye was injected and good spread was seen throughout the joint. After this, approximately 5 mL of bupivacaine, 0.25% and Depo-Medrol, 40 mg was incrementally injected into the left sacroiliac joint.~ The patient tolerated the procedure well with no complications. The patient was observed in the Pain Clinic and then was discharged home neurologically intact. Plan and Disposition:: Patient was discharged without incident.
== END 2024-12-29 13:40 | disposition home or self-care (01) ==
PROVIDERS: PCP Nurse Practitioner; Visit Provider Nurse Anesthetist, Certified Registered
DX: M46.1 Sacroiliitis, not elsewhere classified (principal)
CPT/HCPCS: 27096; G0260; J1010

== ENCOUNTER 2025-01-11 10:54 | Outpatient (POV) | payer MEDICARE, MEDICAID, SELFPAY ==
--- OUTSIDE RECORDS SUMMARY | 2025-01-11 10:57 | XMS_ITS | Data Portability ---
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 Trial of Myrbetriq. [email or web address] Not available 11/28/2023 11:49:20 01/09/2024 01/09/2024 We reviewed opti ons of management for irritative voiding symptoms and overactive bladder symptoms including anticholinergic therapy, beta agonist therapy, cystoscopy with chemical denervation of bladder with Botox, and neurostimulation. Start Vesicare to manage urge incontinence. [email or web address] Not available 01/10/2024 12:02:11 03/26/2024 03/26/2024 We reviewed patient's mixed urinary incontinence. Urge component is improved with Myrbetriq. She continues to have bothersome stress urinary incontinence. She has classic symptoms of female stress incontinence, possibly related to vaginal childbirth. We discussed options including mid urethral sling and Bulkamid injection. She wishes to proceed with Bulkamid injection. [email or web address] Not available 03/29/2024 18:31:39 05/14/2024 05/14/2024 DATE [...] Discharged home with instructions for outpatient follow-up. [email or web address] Not available 05/14/2024 11:12:50 06/25/2024 06/25/2024 Continue to iggy tor lower urinary symptoms. Myrbetriq for medical management of lower urinary symptoms. [email or web address] Not available 07/05/2024 23:20:59 Plan of Treatment Reminders Order Date Submit Date Provider Last Modified By Organization Details Last Modified Time Details Appointments RECHECK 2024 02:00P Jes BECERRA MD Not available Not available Not available Lab urinaly sis panel, auto 2023 024 [facility] With [address], [place], [address], 07/01/2024 08:08:53 urinaly sis panel, auto 2023 024 [email or web address] [facility] With [place] [address], [place], [address], 03/29/2024 18:31:42 urinaly sis panel, auto 2023 024 [email or web address] [facility], [address], [place], [address], 01/10/2024 12:02:13 urinaly sis panel, auto 2023 024 [email or web address] [facility], [address], [facility] [address], [place], [address], 11/28/2023 11:49:22 Referral None recorde d. Procedures None recorde d. Surgeries endosco pic injecti on of implant materia l into the submuco chet tissues of the urethra and/or bladder (SURG) [email or web address], [address] [facility], [facility] [address], [place], [address], 04/22/2024 20:23:38 Imaging None recorde d. Medication Orders solifen acin 10 mg tablet [facility]23 [facility], [address] [place], [address], 01/09/2024 13:24:23 Myrbetr iq 50 mg tablet, extende d release 2023 024 [facility], [address] [place], [address], 11/26/2023 10:28:53 Patient TargetsNo targets recorded. Patient Instructions Encounter Date Encounter Id Patient Instructions Last Modified By Organization Details Last Modified Time 03/26/2024 [id number] learning about healthy weight [email or web address] Not available 03/29/2024 18:31:40 06/25/2024 [id number] learning about healthy weight [email or web address] Not available 07/01/2024 08:08:53 Reason for Referral None Reported. Results Created Date Observation Date Name Description Value Unit Range Abnormal Flag Note LastModifiedBy Organization Detail LastModifiedTime 11/26/19 24 11/26/2023 urina lysis panel , auto Unknown Analyte Clean Catch Not Available [facility] With [address], [place], [address], 11/26/2023 10:27:59 11/26/19 24 11/26/2023 urina lysis panel , auto Unknown Analyte Yellow Not Available [facility] With [address], [place], [address], 11/26/2023 10:27:59 11/26/19 24 11/26/2023 urina lysis panel , auto Unknown Analyte Clear Not Available [facility] With [address], [place], [address], 11/26/2023 10:27:59 11/26/19 24 11/26/2023 urina lysis panel , auto Unknown Analyte 1.010 Not Available [facility] With [address], [place], [address], 11/26/2023 10:27:59 11/26/19 24 11/26/2023 urina lysis panel , auto Unknown Analyte 1.003- 1.035 Not Available [facility] With [address], [place], [address], 11/26/2023 10:27:59 11/26/19 24 11/26/2023 urina lysis panel , auto Unknown Analyte 5.0 Not Available [facility] With [address], [place], [address], 11/26/2023 10:27:59 11/26/19 24 11/26/2023 urina lysis panel , auto Unknown Analyte 5.0-8. 0 Not Available [facility] [address], [place], [address], 11/26/2023 10:27:59 11/26/19 24 11/26/2023 urina lysis panel , auto Unknown Analyte Negati ve Not Available [facility] [address], [place], [address], 11/26/2023 10:27:59 11/26/19 24 11/26/2023 urina lysis panel , auto Unknown Analyte Negati ve Not Available [facility] [address], [place], [address], 11/26/2023 10:27:59 11/26/19 24 11/26/2023 urina lysis panel , auto Unknown Analyte Negati ve Not Available [facility] [address], [place], [address], 11/26/2023 10:27:59 11/26/19 24 11/26/2023 urina lysis panel , auto Unknown Analyte Negati ve Not Available [facility] [address], [place], [address], 11/26/2023 10:27:59 11/26/19 24 11/26/2023 urina lysis panel , auto Unknown Analyte Negati ve Not Available [facility] [address], [place], [address], 11/26/2023 10:27:59 11/26/19 24 11/26/2023 urina lysis panel , auto Unknown Analyte Negati ve Not Available [facility] [address], [place], [address], 11/26/2023 10:27:59 11/26/19 24 11/26/2023 urina lysis panel , auto Unknown Analyte >1000 mg/dl Not Available [facility] [address], [place], [address], 11/26/2023 10:27:59 11/26/19 24 11/26/2023 urina lysis panel , auto Unknown Analyte Normal Not Available [facility] [address], [place], [address], 11/26/2023 10:27:59 11/26/19 24 11/26/2023 urina lysis panel , auto Unknown Analyte Negati ve Not Available [facility] [address], [place], [address], 11/26/2023 10:27:59 11/26/19 24 11/26/2023 urina lysis panel , auto Unknown Analyte Negati ve Not Available [facility] [address], [place], [address], 11/26/2023 10:27:59 11/26/19 24 11/26/2023 urina lysis panel , auto Unknown Analyte Normal Not Available [facility] [address], [place], [address], 11/26/2023 10:27:59 11/26/19 24 11/26/2023 urina lysis panel , auto Unknown Analyte Normal 1 mg/dl Not Available [facility] [address], [place], [address], 11/26/2023 10:27:59 11/26/19 24 11/26/2023 urina lysis panel , auto Unknown Analyte Negati ve Not Available [facility] [address], [place], [address], 11/26/2023 10:27:59 11/26/19 24 11/26/2023 urina lysis panel , auto Unknown Analyte Negati ve Not Available [facility] [address], [place], [address], 11/26/2023 10:27:59 11/26/19 24 11/26/2023 urina lysis panel , auto Unknown Analyte Negati ve Not Available [facility] [address], [place], [address], 11/26/2023 10:27:59 11/26/19 24 11/26/2023 urina lysis panel , auto Unknown Analyte Negati ve Not Available [facility] [address], [place], [address], 11/26/2023 10:27:59 01/10/20 24 01/10/2024 urina lysis panel , auto Unknown Analyte Clean Catch Not Available [facility] With [address], [place], [address], 01/10/2024 08:55:27 01/10/20 24 01/10/2024 urina lysis panel , auto Unknown Analyte Yellow Not Available [facility] With [address] [place], [address], 01/10/2024 08:55:27 01/10/20 24 01/10/2024 urina lysis panel , auto Unknown Analyte Clear Not Available [facility] With [address] [place], [address], 01/10/2024 08:55:27 01/10/20 24 01/10/2024 urina lysis panel , auto Unknown Analyte 1.010 Not Available [facility] With [address] [place], [address], 01/10/2024 08:55:27 01/10/20 24 01/10/2024 urina lysis panel , auto Unknown Analyte 1.003- 1.035 Not Available [facility] With [address] [place], [address], 01/10/2024 08:55:27 01/10/20 24 01/10/2024 urina lysis panel , auto Unknown Analyte 5.0 Not Available [facility] With [address] [place], [address], 01/10/2024 08:55:27 01/10/20 24 01/10/2024 urina lysis panel , auto Unknown Analyte 5.0-8. 0 Not Available [facility] With [address] [place], [address], 01/10/2024 08:55:27 01/10/20 24 01/10/2024 urina lysis panel , auto Unknown Analyte Negati ve Not Available [facility] With [address] [place], [address], 01/10/2024 08:55:27 01/10/20 24 01/10/2024 urina lysis panel , auto Unknown Analyte Negati ve Not Available [facility] With [address] [place], [address], 01/10/2024 08:55:27 01/10/20 24 01/10/2024 urina lysis panel , auto Unknown Analyte Negati ve Not Available [facility] With [address] [place], [address], 01/10/2024 08:55:27 01/10/20 24 01/10/2024 urina lysis panel , auto Unknown Analyte Negati ve Not Available [facility] With [address] [place], [address], 01/10/2024 08:55:27 01/10/20 24 01/10/2024 urina lysis panel , auto Unknown Analyte Negati ve Not Available [facility] With [address] [place], [address], 01/10/2024 08:55:27 01/10/20 24 01/10/2024 urina lysis panel , auto Unknown Analyte Negati ve Not Available [facility] With [address] [place], [address], 01/10/2024 08:55:27 01/10/20 24 01/10/2024 urina lysis panel , auto Unknown Analyte >1000 mg/dl Not Available [facility] With [address] [place], [address], 01/10/2024 08:55:27 01/10/20 24 01/10/2024 urina lysis panel , auto Unknown Analyte Normal Not Available [facility] With [address], [place], [address], 01/10/2024 08:55:27 01/10/20 24 01/10/2024 urina lysis panel , auto Unknown Analyte Negati ve Not Available [facility] With [address] [place], [address], 01/10/2024 08:55:27 01/10/20 24 01/10/2024 urina lysis panel , auto Unknown Analyte Negati ve Not Available [facility] With [address] [place], [address], 01/10/2024 08:55:27 01/10/20 24 01/10/2024 urina lysis panel , auto Unknown Analyte Normal Not Available [facility] With [address] [place], [address], 01/10/2024 08:55:27 01/10/20 24 01/10/2024 urina lysis panel , auto Unknown Analyte Normal 1 mg/dl Not Available [facility] With [address] [place], [address], 01/10/2024 08:55:27 01/10/20 24 01/10/2024 urina lysis panel , auto Unknown Analyte Negati ve Not Available [facility] With [address] [place], [address], 01/10/2024 08:55:27 01/10/20 24 01/10/2024 urina lysis panel , auto Unknown Analyte Negati ve Not Available [facility] With [address] [place], [address], 01/10/2024 08:55:27 01/10/20 24 01/10/2024 urina lysis panel , auto Unknown Analyte Negati ve Not Available [facility] With [address] [place], [address], 01/10/2024 08:55:27 01/10/20 24 01/10/2024 urina lysis panel , auto Unknown Analyte Negati ve Not Available [facility] With [address] [place], [address], 01/10/2024 08:55:27 03/26/20 24 03/26/2024 urina lysis panel , auto Unknown Analyte Clean Catch Not Available [facility] With [address] [place], [address], 03/26/2024 15:22:33 03/26/20 24 03/26/2024 urina lysis panel , auto Unknown Analyte Yellow Not Available [facility] With [address] [place], [address], 03/26/2024 15:22:33 03/26/20 24 03/26/2024 urina lysis panel , auto Unknown Analyte Clear Not Available [facility] With [address] [place], [address], 03/26/2024 15:22:33 03/26/20 24 03/26/2024 urina lysis panel , auto Unknown Analyte 1.020 Not Available [facility] With [address] [place], [address], 03/26/2024 15:22:33 03/26/20 24 03/26/2024 urina lysis panel , auto Unknown Analyte 1.003- 1.035 Not Available [facility] With [address], [place], [address], 03/26/2024 15:22:33 03/26/20 24 03/26/2024 urina lysis panel , auto Unknown Analyte 5.0 Not Available [facility] With [address], [place], [address], 03/26/2024 15:22:33 03/26/20 24 03/26/2024 urina lysis panel , auto Unknown Analyte 5.0-8. 0 Not Available [facility] With [address], [place], [address], 03/26/2024 15:22:33 03/26/20 24 03/26/2024 urina lysis panel , auto Unknown Analyte Negati ve Not Available [facility] With [address], [place], [address], 03/26/2024 15:22:33 03/26/20 24 03/26/2024 urina lysis panel , auto Unknown Analyte Negati ve Not Available [facility] With [address], [place], [address], 03/26/2024 15:22:33 03/26/20 24 03/26/2024 urina lysis panel , auto Unknown Analyte Negati ve Not Available [facility] With [address], [place], [address], 03/26/2024 15:22:33 03/26/20 24 03/26/2024 urina lysis panel , auto Unknown Analyte Negati ve Not Available [facility] With [address], [place], [address], 03/26/2024 15:22:33 03/26/20 24 03/26/2024 urina lysis panel , auto Unknown Analyte Trace Not Available [facility] With [address] [place], [address], 03/26/2024 15:22:33 03/26/20 24 03/26/2024 urina lysis panel , auto Unknown Analyte Negati ve Not Available [facility] With [address] [place], [address], 03/26/2024 15:22:33 03/26/20 24 03/26/2024 urina lysis panel , auto Unknown Analyte >1000 mg/dl Not Available [facility] With [address] [place], [address], 03/26/2024 15:22:33 03/26/20 24 03/26/2024 urina lysis panel , auto Unknown Analyte Normal Not Available [facility] With [address] [place], [address], 03/26/2024 15:22:33 03/26/20 24 03/26/2024 urina lysis panel , auto Unknown Analyte Negati ve Not Available [facility] With [address] [place], [address], 03/26/2024 15:22:33 03/26/20 24 03/26/2024 urina lysis panel , auto Unknown Analyte Negati ve Not Available [facility] With [address] [place], [address], 03/26/2024 15:22:33 03/26/20 24 03/26/2024 urina lysis panel , auto Unknown Analyte Normal Not Available [facility] With [address], [place], [address], 03/26/2024 15:22:33 03/26/20 24 03/26/2024 urina lysis panel , auto Unknown Analyte Normal 1 mg/dl Not Available [facility] With [address], [place], [address], 03/26/2024 15:22:33 03/26/20 24 03/26/2024 urina lysis panel , auto Unknown Analyte Negati ve Not Available [facility] With [address] [place], [address], 03/26/2024 15:22:33 03/26/20 24 03/26/2024 urina lysis panel , auto Unknown Analyte Negati ve Not Available [facility] With [address], [place], [address], 03/26/2024 15:22:33 03/26/20 24 03/26/2024 urina lysis panel , auto Unknown Analyte Negati ve Not Available [facility] With [address] [place], [address], 03/26/2024 15:22:33 03/26/20 24 03/26/2024 urina lysis panel , auto Unknown Analyte Negati ve Not Available [facility] With [address], [place], [address], 03/26/2024 15:22:33 05/14/20 24 05/14/2024 POTAS SIUM potassium 3.9 mmol/ L 3.4-5. 0 normal Not Available [facility] [address] [place] [address] [place], [address], 05/14/2024 07:14:03 05/14/20 24 05/14/2024 urina lysis panel , auto Unknown Analyte Clean Catch Not Available [facility] Surgery Schedule [address] [place], [address], 05/14/2024 07:16:20 05/14/20 24 05/14/2024 urina lysis panel , auto Unknown Analyte Yellow Not Available [facility] Schedule [address] [place], [address], 05/14/2024 07:16:20 05/14/20 24 05/14/2024 urina lysis panel , auto Unknown Analyte Clear Not Available [facility] Schedule [address] [place], [address], 05/14/2024 07:16:20 05/14/20 24 05/14/2024 urina lysis panel , auto Unknown Analyte 1.025 Not Available [facility] Schedule [address] [place], [address], 05/14/2024 07:16:20 05/14/20 24 05/14/2024 urina lysis panel , auto Unknown Analyte 6.0 Not Available [facility] Schedule [address] [place], [address], 05/14/2024 07:16:20 05/14/20 24 05/14/2024 urina lysis panel , auto Unknown Analyte Negati ve Not Available [facility] Schedule [address] [place], [address], 05/14/2024 07:16:20 05/14/20 24 05/14/2024 urina lysis panel , auto Unknown Analyte Negati ve Not Available [facility] Schedule [address] [place], [address], 05/14/2024 07:16:20 05/14/20 24 05/14/2024 urina lysis panel , auto Unknown Analyte Negati ve Not Available [facility] Schedule [address] [place], [address], 05/14/2024 07:16:20 05/14/20 24 05/14/2024 urina lysis panel , auto Unknown Analyte >1000 mg/dl Not Available [facility] Schedule [address] [place], [address], 05/14/2024 07:16:20 05/14/20 24 05/14/2024 urina lysis panel , auto Unknown Analyte Negati ve Not Available [facility] Schedule [address] [place], [address], 05/14/2024 07:16:20 05/14/20 24 05/14/2024 urina lysis panel , auto Unknown Analyte 1 mg/dl Not Available [facility] Schedule [address] [place], [address], 05/14/2024 07:16:20 05/14/20 24 05/14/2024 urina lysis panel , auto Unknown Analyte 1 mg/dl (+) Not Available [facility] Schedule [address] [place], [address], 05/14/2024 07:16:20 05/14/20 24 05/14/2024 urina lysis panel , auto Unknown Analyte 50 Honorio/ul Not Available [facility] Schedule [address] [place], [address], 05/14/2024 07:16:20 06/25/20 24 06/25/2024 urina lysis panel , auto Unknown Analyte Clean Catch Not Available [facility] With [address], [place], [address], 06/25/2024 12:40:24 06/25/20 24 06/25/2024 urina lysis panel , auto Unknown Analyte Yellow Not Available [facility] [place] [facility] With [address], [place], [address], 06/25/2024 12:40:24 06/25/2006/25/2024 urina lysis panel , auto Unknown Analyte Clear Not Available [facility] With [address], [place], [address], 06/25/2024 12:40:24 06/25/20 24 06/25/2024 urina lysis panel , auto Unknown Analyte 1.015 Not Available [facility] With [address], [place], [address], 06/25/2024 12:40:24 06/25/20 24 06/25/2024 urina lysis panel , auto Unknown Analyte 1.003- 1.035 Not Available [facility] With [address], [place], [address], 06/25/2024 12:40:24 06/25/20 24 06/25/2024 urina lysis panel , auto Unknown Analyte 5.0 Not Available [facility] With [address], [place], [address], 06/25/2024 12:40:24 06/25/20 24 06/25/2024 urina lysis panel , auto Unknown Analyte 5.0-8. 0 Not Available [facility] With [address], [place], [address], 06/25/2024 12:40:24 06/25/2006/25/2024 urina lysis panel , auto Unknown Analyte Negati ve Not Available [facility] With [address] [place], [address], 06/25/2024 12:40:24 06/25/20 24 06/25/2024 urina lysis panel , auto Unknown Analyte Negati ve Not Available [facility] With [address], [place], [address], 06/25/2024 12:40:24 06/25/20 24 06/25/2024 urina lysis panel , auto Unknown Analyte Negati ve Not Available [facility] With [address] [address], [place], [address], 06/25/2024 12:40:24 06/25/2006/25/2024 urina lysis panel , auto Unknown Analyte Negati ve Not Available [facility] With [address], [place], [address], 06/25/2024 12:40:24 06/25/2006/25/2024 urina lysis panel , auto Unknown Analyte Negati ve Not Available [facility] With [address], [place], [address], 06/25/2024 12:40:24 06/25/20 24 06/25/2024 urina lysis panel , auto Unknown Analyte Negati ve Not Available [facility] With [address], [place], [address], 06/25/2024 12:40:24 06/25/2006/25/2024 urina lysis panel , auto Unknown Analyte >1000 mg/dl Not Available [facility] With [address], [place], [address], 06/25/2024 12:40:24 06/25/2006/25/2024 urina lysis panel , auto Unknown Analyte Normal Not Available [facility] With [address], [place], [address], 06/25/2024 12:40:24 06/25/2006/25/2024 urina lysis panel , auto Unknown Analyte Negati ve Not Available [facility] With [address] [place], [address], 06/25/2024 12:40:24 06/25/2006/25/2024 urina lysis panel , auto Unknown Analyte Negati ve Not Available [facility] With [address] [place], [address], 06/25/2024 12:40:24 06/25/20 24 06/25/2024 urina lysis panel , auto Unknown Analyte Normal Not Available [facility] With [address] [place], [address], 06/25/2024 12:40:24 06/25/2006/25/2024 urina lysis panel , auto Unknown Analyte Normal 1 mg/dl Not Available [facility] With [address], [place], [address], 06/25/2024 12:40:24 06/25/20 24 06/25/2024 urina lysis panel , auto Unknown Analyte Negati ve Not Available [facility] With [address] [place], [address], 06/25/2024 12:40:24 06/25/2006/25/2024 urina lysis panel , auto Unknown Analyte Negati ve Not Available [facility] With [address] [place], [address], 06/25/2024 12:40:24 06/25/20 24 06/25/2024 urina lysis panel , auto Unknown Analyte Negati ve Not Available [facility] With [address], [place], [address], 06/25/2024 12:40:24 06/25/20 24 06/25/2024 urina lysis panel , auto Unknown Analyte Negati ve Not Available [facility] With [address], [place], [address], 06/25/2024 12:40:24 Result Notes None recorded. Medical [...] Updated DateTime 11/26/2023 162.56 cm 36 kg/m2 50787.4 g Georgina Trejo [facility] 11/26/2023 11:07:37 Date Recorded Body height Body mass index (BMI) Body weight Provider Name and Address Organization Details Last Updated DateTime 01/09/2024 162.56 cm 36.2 kg/m2 91217.99 g Georgina Trejo [facility] 01/10/2024 08:55:06 Date Recorded Body height Body mass index (BMI) Body weight Provider Name and Address Organization Details Last Updated DateTime 03/26/2024 162.56 cm 34.3 kg/m2 68151.47 g Sedrick Buenot [facility] 03/26/2024 15:21:07 Date Recorded Body height Body mass index (BMI) Body weight Provider Name and Address Organization Details Last Updated DateTime 06/25/2024 162.56 cm 30 kg/m2 76919.66 [facility] 06/25/2024 18:12:00 Social History Question Answer Notes LastModified by Spredfast ion Details LastModified Time Tobacco Smoking Status Former Smoker quit in 2020 Georgina Trejo [facility] 11/26/2023 11:10:11 What Was The Date Of Your Most Recent Tobacco Screening? 03/26/2024 [email or web address] Information not available 03/26/2024 Sex: Female Functional Status None recorded. Mental Status None recorded. Family History Relationship Description Onset Age of this Age Resolved Age Notes LastModified by Organization Details LastModified Time Mother Diabetes mellitus [email or web address] Not available 2023 11:09:41 Mother Family history of malignant neoplasm [email or web address] Not available 2023 11:09:54 Maternal Grandfather Diabetes mellitus Not available 2023 11:09:41 Maternal Grandfather Family history of malignant neoplasm [email or web address] Not available 2023 11:09:54 Maternal Grandmother Diabetes mellitus [email or web address] Not available 2023 11:09:41 Paternal Grandmother Family history of malignant neoplasm Not available 2023 11:09:54 Medical History Condition Response False Teeth Y Stroke Y Sleep Apnea Y Gynecological HistoryNo gynecological history recorded. Obstetrics History GPAL:G 0 P 0 0 0 0 Past Encounters Encounter ID Performer Location Encounter Start Date Encounter Closed Date Diagnosis/Indication Diagnosis SNOMED-CT Code Diagnosis ICD10 Code Diagnosis Note [id number] [facility]ARWIN [facility] [address] [facility] [place] [address] 11/26/2023 09:14:38 11/26/2023 10:30:27 Urge incontinence of urine 32899748 N39.41 Overactive urinary bladder 701858256 N32.81 [id number] [facility] [address] ,[place] [address] 01/09/2024 12:57:55 01/11/2024 04:04:52 Urge incontinence of urine 73731208 N39.41 Overactive urinary bladder 549505075 N32.81 [id number] MD [facility] [address] [place] [address] ,[place] [phone] 03/26/2024 14:02:04 03/26/2024 19:09:31 Overactive urinary bladder 731198751 N32.[address] ess incontinence 28432323 N39.3 [id number] DARWIN BECERRA MD SURGERY SCHEDULE [address] [place] [address] 05/14/2024 06:09:58 05/14/2024 06:11:27 [id number] DARWIN BECERRA MD [facility] [address] [place] [address] ,[place] [address] 06/25/2024 14:14:48 06/25/2024 18:44:49 Overactive urinary bladder 544689288 N32.81 bulkamid 05/14/24 Female str ess incontinence 18085669 N39.3 bulkamid 05/14/24 Health Concerns Section Related Observation LastModified by Organization Detai ls LastModified Time None Recorded Concern Status LastModified by Organization Details LastModified Time None Recorded Advance Directives Directive None Recorded Payers Encounter Date Sequence Insurance Name Policy Number Policy Benavides Covered Member ID Benavides Member ID Guarantor Name 11/26/2023 1 [place] Faby Bustamante [id number] Faby Bustamante 11/26/2023 2 [facility] (MEDICAID HMO) Faby Sahu [id number] Faby Bustamante 01/09/2024 1 [place] Faby Bustamante [id number] Faby Bustamante 01/09/2024 2 [facility] (MEDICAID HMO) Faby Sahu [id number] Faby Bustamante 03/26/2024 1 [place] Faby Bustamante [id number] Faby Bustamante 05/14/2024 1 [employer] (MEDICARE REPLACEMENT HMO) Faby Bustamante [id number] Faby Bustamante 06/25/2024 1 [employer] (MEDICARE REPLACEMENT HMO) Faby Bustamante [id number] Faby Bustamante Notes Date Note Type Note [...] which did not work. DARWIN BECERRA MD [address] [place] [address], [phone], [facility] 11/28/2023 11:49:50 01/09/2024 text/html 43-year-old fema le [...] have symptoms of urgency. DARWIN BECERRA MD [address] [place] [address], [address], [facility] 01/10/2024 12:02:29 03/26/2024 text/html 43-year-old isela toribio [...] one child, vaginal delivery. DARWIN BECERRA MD [address] [place] [address], [address], [facility] 03/29/2024 18:31:54 06/25/2024 text/html 43-year-old isela toribio [...] to manage urge incontinence. DARWIN BECERRA MD [address] [place] [address], [address], [facility] 07/05/2024 23:21:42 OBGyn Episode No OBEpisode recorded.
--- OUTSIDE RECORDS SUMMARY | 2025-01-11 10:57 | XMS_ITS | Data Portability ---
Author Organization [facility] Medicine and [facility] Address [address] [place] [address] Assessment No assessment recorded. Plan of Treatment Reminders Order Date Submit Date Provider Last Modified By Organization Details Last Modified Time Details Appointments None recorded. Lab urinalysis , dipstick 2022 023 [email or web address] [facility], [address] [place] [address], [phone], 10:39:00 Referral None recorded. Procedures None recorded. Surgeries None recorded. Imaging None recorded. Medication Orders None recorded. Patient TargetsNo targets recorded. Patient InstructionsNo instructions recorded. Reason for Referral None Reported. Results Created Date Observation Date Name Description Value Unit Range Abnormal Flag Note LastModifiedBy Organization Detail LastModifiedTime 10/04/1910/04/2022 urina lysis , dipst ick Leukocytes (reference range) negati ve Not Available [facility] [address] [place] [address], [phone], 10/04/2022 09:21:05 10/04/19 23 10/04/2022 urina lysis , dipst ick Nitrite (reference range:) negati ve Not Available [facility] [address] [place] [address], [address], 10/04/2022 09:21:05 10/04/19 23 10/04/2022 urina lysis , dipst ick Urobilinogen (reference range) 1 Not Available [address], [address], 10/04/2022 09:21:05 10/04/19 23 10/04/2022 urina lysis , dipst ick Protein (reference range) negati ve Not Available [address], [address], 10/04/2022 09:21:05 10/04/19 23 10/04/2022 urina lysis , dipst ick pH (reference range 5-8.5) 6.5 Not Available [address], [address], 10/04/2022 09:21:05 10/04/19 23 10/04/2022 urina lysis , dipst ick Blood (reference range:) negati ve Not Available [address], [address], 10/04/2022 09:21:05 10/04/19 23 10/04/2022 urina lysis , dipst ick Specific Cato (reference range) 1.025 Not Available [address], [address], 10/04/2022 09:21:05 10/04/19 23 10/04/2022 urina lysis , dipst ick Ketone (reference range) negati ve Not Available [address], [address], 10/04/2022 09:21:05 10/04/19 23 10/04/2022 urina lysis , dipst ick Bilirubin (reference range) negati ve Not Available [address], [address], 10/04/2022 09:21:05 10/04/19 23 10/04/2022 urina lysis , dipst ick Glucose (reference range) negati ve Not Available [facility] [address] [place] [address], [place], [address], 10/04/2022 09:21:05 Result Notes None recorded. Problems Name Problem SNOMED Code Status Onset Date Resolution Date Notes Provider Name and Address Organization Details Recorded Time Acute stroke 8883436605245 04 Active 2022 Arcelia fair, [facility]E [facility] [place] [facility] [place] 3 09:00:03 Environment al allergy 014076031 Active 2022 Arcelia fair, ROSCOE - [facility] [place] 3 09:00:11 Asthma 529551502 Active 2022 Arcelia fair, ROSCOE - [facility] [place] 3 09:00:19 Anxiety 81567485 Active 2022 Arcelia fair, ROSCOE Valdez [facility] [place] 3 09:00:28 Problem Notes None recorded. Procedures Surgical History Date Name Laterality Status Provider Name and Address Organization Details Recorded Time closure of patent foramen ovale completed Arcelia Valdez [facility] [place] 10/04/2022 09:01:09 Imaging Results None recorded. Procedure [...] Updated DateTime 10/04/2022 162.56 cm 37.1 kg/m2 89271.95 g 97.7 [degF] Arcelia Crooks [facility] & [place] 10/04/2022 08:57:58 Social History Question Answer Notes LastModified by Organizat ion Details LastModified Time Tobacco Smoking Status Former Smoker Arcelia Crooks [facility], [facility] & [place] 10/04/2022 09:00:58 What Is Your Level Of Alcohol Consumption? None [email or web address] Information not available 10/04/2022 Sex: Unknown Functional Status None recorded. Mental Status None recorded. Family History Relationship Description Onset Age of this Age Resolved Age Notes LastModified by Organization Details LastModified Time Brother Family history unknown [email or web address] Not available 2022 09:00:48 Father Family history unknown [email or web address] Not available 2022 09:00:48 Mother Family history unknown Not available 2022 09:00:48 Medical History No medical history recorded. Gynecological HistoryNo gynecological history recorded. Obstetrics History GPAL:G 0 P 0 0 0 0 Past Encounters Encounter ID Performer Location Encounter Start Date Encounter Closed Date Diagnosis/Indication Diagnosis SNOMED-CT Code Diagnosis ICD10 Code Diagnosis Note [id number] Noe Dupont Jr, MD [facility] [address] [facility] [address] 10/04/2022 08:38:28 10/04/2022 09:20:22 Urinary incontinence 882190263 R32 Patient with history of mild stress [...] Benavides Member ID Guarantor Name 10/04/2022 1 [facility] (MEDICAID HMO) Faby Bustamante [id number] Faby Bustamante Notes Date Note Type Note Provider Name and Address Organization Details Recorded Time 10/04/2022 text/html Patient is a 42-year-old white female with a history of stress incontinence. She was previously seen at [facility]. She was last seen in November [...] of the aspirin. Noe Dupont Jr, MD [address] [place] [address], [address], [place], [address], [facility] & [place] 10/04/2022 10:14:04 OBGyn Episode No OBEpisode recorded.
[2025-01-11 11:09] VITALS: BP 128/84; PULSE 100; RESP 18; O2SAT 100; BMI 28.1
--- NOTE | 2025-01-11 11:16 | A.OFFVIS_ITS ---
[facility] Disclaimer: The information contained in this section may have been updated after the patient was seen, as this information can be updated by other users. Medical History Coronary arteritis Depression Anxiety Hyperlipidemia Migraines Asthma CVA (cerebral vascular accident) Surgical History PFO (patent foramen ovale) Family History Mother Cancer Grandmother Stroke Grandfather Stroke Social History Smoking Status: Never smoker alcohol intake: never substance use type: denies use current occupational status: unemployed Travel in the last 8 weeks: None household members: significant other and children housing: other PM Subjective & Objective Subjective Subjective:: Patient is a pleasant 44-year-old female who presents today for follow-up of bilateral SI injections on 12/29/2024. Today she rates her pain a 3 out of 10. She does state that she had approximately 85% improvement and feels like it is still helping. Patient does state that it did take a couple of days for it to kick in. Patient does however states she has been having more pain in and around the middle of her low back that does radiate into her buttocks and tailbone area. She states she has not had any new falls or injuries. At our last visit we did order her compounded cream. She states that she has not yet gotten this but is planning to here in the next little bit. Her Bertin has been reviewed and is appropriate. Review of Systems: General: No recent weight changes, no fever, no sleep disturbances Respiratory: No cough, no shortness of air, no recurring pulmonary infections Cardiovascular/peripheral vascular: No chest pain, no palpitations, no edema, no shortness of breath Gastrointestinal: No new onset incontinence, normal bowel movements reported Genitourinary: No new onset incontinence Musculoskeletal: Low back pain, buttocks pain, tailbone pain Psychiatric: [Normal mood/affect] Neurological: [Denies weakness in extremities], [denies balance issues] Pain at rest (0-10 scale): 3 Objective Objective:: Physical Exam: General: Alert and oriented x3, no acute distress, pleasant and cooperative Lungs: Respirations even and unlabored, symmetrical chest expansion Eyes: PERRL Musculoskeletal: Flexion and extension of lumbar [spine] somewhat guarded secondary to pain, extreme point tenderness along the lower lumbar spine approximately L5-S1 Neurological: Speech clear, no gross sensory deficit Has patient had previous pain injection?: Yes Percent improvement in pain since last injection: 85% Conservative treatment options previously tried: Home exercise plan Length of treatment: Longer than 12 weeks Meds Home Medications and Allergies Home Medications ?Medication ?Instructions ?Recorded ?Confirmed ?Type atorvastatin 40 mg tablet 40 mg PO HS 03/09/21 01/11/25 History clopidogrel 75 mg tablet 75 mg PO DAILY 03/09/21 01/11/25 History propranolol 80 mg tablet 80 mg PO BID 06/08/22 01/11/25 History rimegepant 75 mg disintegrating 75 mg PO Q OTHER DAY 06/08/22 01/11/25 History tablet (Nurtec ODT) tizanidine 4 mg tablet 4 mg PO BID PRN Pain 06/08/22 01/11/25 History paroxetine HCl 40 mg tablet (Paxil) 40 mg PO DAILY #30 tabs 10/03/22 01/11/25 Rx atogepant 60 mg tablet (Qulipta) 60 mg PO DAILY 01/27/24 01/11/25 History dapagliflozin propanediol 10 mg 10 mg PO DAILY 01/27/24 01/11/25 History tablet (Farxiga) gabapentin 600 mg tablet 600 mg PO DAILY 01/27/24 01/11/25 History levonorgestrel (Mirena) 21 mcg intrauterine DIRECTED 01/27/24 01/11/25 History CONTROLL ropinirole 0.25 mg tablet 0.25 mg PO DAILY 01/27/24 01/11/25 History solifenacin 10 mg tablet 10 mg PO DAILY 01/27/24 01/11/25 History trazodone 100 mg tablet 100 mg PO DAILY 01/27/24 01/11/25 History furosemide 20 mg tablet 20 mg PO DAILY 04/22/24 01/11/25 History semaglutide (weight loss) 1 mg/0.5 1 mg SQ DIRECTED Diabetes 04/22/24 01/11/25 History mL subcutaneous pen injector (Erica) New Prescriptions to Start Prescriptions: Allergies Allergy/AdvReac Type Severity Reaction Status Date / Time No Known Allergies Allergy Verified 04/22/24 15:43 Assessment and Plan *Assessment and plan (1) Degenerative disc disease, lumbar: Status: Acute Category: Medical Code(s): M51.369 - Other intervertebral disc degeneration, lumbar region without mention of lumbar back pain or lower extremity pain (2) Lumbar spinal stenosis: Status: Acute Qualifiers: Neurogenic claudication status: with neurogenic claudication Qualified Code(s): M48.062 - Spinal stenosis, lumbar region with neurogenic claudication Category: Medical Code(s): M48.061 - Spinal stenosis, lumbar region without neurogenic claudication (3) Lumbar radiculopathy: Status: Acute Category: Medical Code(s): M54.16 - Radiculopathy, lumbar region Plan Patient has had significant improvement following her SI injections and does not require any additional injection therapy at this time. Patient was counseled in future she may benefit from epidurals at the L5-S1 level. Patient has had these in the past. I did discuss with the patient that we will wait and see how the cream does in this area as well as send in a new prescription of methocarbamol 500 mg twice daily as needed with a 2-week dose. Patient does take tizanidine 4 mg but only takes it at night because it does cause significant fatigue. Patient was counseled to not double up on these medications at the same time however that the methocarbamol is less sedating and she may do just fine with that during the day. Patient will return to clinic in 2 weeks for reevaluation of symptoms and plan of care. Patient has been instructed to contact the clinic with any concerns before the next appointment. Dr. Cruz has reviewed this note and agrees with this plan of care. This note was dictated using voice recognition software and make contain errors or omissions. All injections are used with Lidocaine, Bupivacaine and dexamethasone. Occasionally urine drug screen is needed to verify patient's compliance with our office pain contract. This is ordered based off specific treatments related to chronic pain with the potential to abuse certain medications.
== END 2025-01-11 23:59 | disposition home or self-care (01) ==
PROVIDERS: PCP Nurse Practitioner; Visit Provider Nurse Practitioner Family
DX: M48.062 Spinal stenosis, lumbar region with neurogenic claudication (principal); M51.16 Intervertebral disc disorders with radiculopathy, lumbar region
CPT/HCPCS: 99212; G0463

== ENCOUNTER 2025-02-16 08:50 | Outpatient (POV) | payer MEDICARE, MEDICAID, SELFPAY ==
--- OUTSIDE RECORDS SUMMARY | 2025-02-16 08:54 | XMS_ITS | Continuity of Care Document ---
Author Organization [facility] Berenice coffman [facility] Address [address] [address] Care Team Providers Care Covering Machine Tender Name Role Phone SYDNEY GRACE Primary Care Provider Assessment Encounter Date Assessment Date Assessment LastModified by Organization Details LastModified Time 01/14/2025 01/14/2025 44-year-old female with history of stroke presents with urinary incontinence. Stress incontinence is linked to cough and sneeze episodes. Urge incontinence findings include urgency and frequency. Gemtesa continues but adjustment needed for symptom control. [email or web address] Not available 01/17/2025 18:10:22 Plan of Treatment Reminders Order Date Submit Date Provider Last Modified By Organization Details Last Modified Time Details Appointments RECHECK 2024 01:30P Jes BECERRA MD Not available Not available Not available Lab urinalysi s panel, auto 2024 025 [email or web address] [id number] [facility], [address] [place] [address] Dr Guerra, [place], [address], 01/14/2025 14:15:49 Referral None recorded. Procedures None recorded. Surgeries None recorded. Imaging None recorded. Medication Orders Gemtesa 75 mg tablet 2024 025 [facility], [address] [place] [address], [id number], 01/26/2025 13:44:59 Patient TargetsNo targets recorded. Patient Instructions Encounter Date Encounter Id Patient Instructions Last Modified By Organization Details Last Modified Time 01/14/2025 [id number] - Continue takin g Gemtesa as prescribed. - Monitor urinary symptoms closely and report any changes. - Note any episodes of increased leakage or new symptoms. - If medication not covered at pharmacy, notify immediately. - Follow up if symptoms do not improve or worsen. [email or web address] Not available 01/17/2025 18:10:27 Reason for Referral None Reported. Results Created Date Observation Date Name Description Value Unit Range Abnormal Flag Note LastModifiedBy Organization Detail LastModifiedTime 01/15/2001/14/2025 urina lysis panel , auto Unknown Analyte Clean Catch Not Available [facility] With [address]erra, [place], [address], 01/14/2025 14:09:19 01/15/2001/14/2025 urina lysis panel , auto Unknown Analyte Yellow Not Available [facility] With [address] Guerra, [place], [address], 01/14/2025 14:09:19 01/15/2001/14/2025 urina lysis panel , auto Unknown Analyte Clear Not Available [facility] With [address] Guerra, [place], [address], 01/14/2025 14:09:19 01/15/2001/14/2025 urina lysis panel , auto Unknown Analyte 1.020 Not Available [facility] With [address] Guerra, [place], [address], 01/14/2025 14:09:19 01/15/2001/14/2025 urina lysis panel , auto Unknown Analyte 1.003 - 1.030 Not Available [facility] With [address] Guerra, [place], [address], 01/14/2025 14:09:19 01/15/2001/14/2025 urina lysis panel , auto Unknown Analyte 6.5 Not Available [facility] With [address] [place], [address], 01/14/2025 14:09:19 01/15/2001/14/2025 urina lysis panel , auto Unknown Analyte 5.0 - 8.0 Not Available [facility] With [address] [place], [address], 01/14/2025 14:09:19 01/15/20 25 01/14/2025 urina lysis panel , auto Unknown Analyte 25 Beth/uL Not Available [facility] With [address] [place], [address], 01/14/2025 14:09:19 01/15/2001/14/2025 urina lysis panel , auto Unknown Analyte Negati ve Not Available [facility] With [address] [place], [address], 01/14/2025 14:09:19 01/15/2001/14/2025 urina lysis panel , auto Unknown Analyte Negati ve Not Available [facility] With [address] [place], [address], 01/14/2025 14:09:19 01/15/2001/14/2025 urina lysis panel , auto Unknown Analyte Negati ve Not Available [facility] With [address] [place], [address], 01/14/2025 14:09:19 01/15/20 25 01/14/2025 urina lysis panel , auto Unknown Analyte Negati ve Not Available [facility] With [address] [place], [address], 01/14/2025 14:09:19 01/15/20 25 01/14/2025 urina lysis panel , auto Unknown Analyte Negati ve Not Available [facility] [address] Guerra, [place], [address], 01/14/2025 14:09:19 01/15/20 25 01/14/2025 urina lysis panel , auto Unknown Analyte Normal Not Available [facility] With [address] [place], [address], 01/14/2025 14:09:19 01/15/20 25 01/14/2025 urina lysis panel , auto Unknown Analyte Normal Not Available [facility] With [address] [place], [address], 01/14/2025 14:09:19 01/15/20 25 01/14/2025 urina lysis panel , auto Unknown Analyte Negati ve Not Available [facility] With [address] Guerra, [place], [address], 01/14/2025 14:09:19 01/15/20 25 01/14/2025 urina lysis panel , auto Unknown Analyte Negati ve Not Available [facility] With [address] [place], [address], 01/14/2025 14:09:19 01/15/20 25 01/14/2025 urina lysis panel , auto Unknown Analyte Normal Not Available [facility] With [address] [place], [address], 01/14/2025 14:09:19 01/15/20 25 01/14/2025 urina lysis panel , auto Unknown Analyte Normal Not Available [facility] With [address] Guerra, [place], [address], 01/14/2025 14:09:19 01/15/20 25 01/14/2025 urina lysis panel , auto Unknown Analyte Negati ve Not Available [facility] With [address] [place], [address], 01/14/2025 14:09:19 01/15/20 25 01/14/2025 urina lysis panel , auto Unknown Analyte Negati ve Not Available [facility] With [address] [place], [address], 01/14/2025 14:09:19 01/15/20 25 01/14/2025 urina lysis panel , auto Unknown Analyte Negati ve Not Available [facility] With [address] [place], [address], 01/14/2025 14:09:19 01/15/2001/14/2025 urina lysis panel , auto Unknown Analyte Negati ve Not Available [facility] With [address] [place], [address], 01/14/2025 14:09:19 Result Notes None recorded. Medical Equipment None [...] Not Available Not Av ailable Not Available Gemtesa 75 mg tablet Take 1 tablet every day by oral route for 90 days. 025 active Not Available Not Available Not Avai lable Wegovy active Not Available Not Availa ble Not Available Qulipta 60 mg tablet Take 1 tablet every day by oral route. active Not Available Not Available No t Available Vitals Date Recorded Body height Body mass index (BMI) Body weight Provider Name and Address Organization Details Last Updated DateTime 01/14/2025 162.56 cm 28.3 kg/m2 01590.74 g Arimariana John [facility] 01/14/2025 14:08:36 Social History Question Answer Notes LastModified by Organizat ion Details LastModified Time Tobacco Smoking Status Former Smoker quit in 2020 Georgina fair, [facility] 11/26/2023 11:10:11 What Was The Date Of Your Most Recent Tobacco Screening? 01/14/2025 [email or web address] Information not available 01/14/2025 Sex: Female Functional Status None recorded. Mental Status None recorded. Family History Relationship Description Onset Age of this Age Resolved Age Notes LastModified by Organization Details LastModified Time Mother Diabetes mellitus [email or web address] Not available 2023 11:09:41 Mother Family history of malignant neoplasm [email or web address] Not available 2023 11:09:54 Maternal Grandfather Diabetes mellitus Not available 2023 11:09:41 Maternal Grandfather Family history of malignant neoplasm [email or web address] Not available 2023 11:09:54 Maternal Grandmother Diabetes mellitus Not available 2023 11:09:41 Paternal Grandmother Family history of malignant neoplasm [email or web address] Not available 2023 11:09:54 Medical History Condition Response Coronary Artery Disease Y Other N Gout N Kidney Cyst N Kidney Stones N Enlarged Prostate N Heart Arrhythmia N Erectile Dysfunction N Head Trauma/Injury N Emphysema N Sexually Transmitted Disease N Depression N Pneumonia N Incontinence Y Prostate Problems N Cancer Prostate N Paralysis N Anxiety Disorder Y Hemorrhoids N Obesity N Arthritis Y Infertility N Acid Reflux (GERD) N Cancer N Hematuria N Stroke Y Neck Injury N Previous Radiation Therapy? N Neurologic Disorder N Kidney Disease N Heart Conditions Y Kidney or Bladder Problems N Constipation N Urinary Problems N Brain Injury N Ulcers N Prostate Hypertrophy N Low Testosterone N Tuberculosis N Previous Chemotherapy? N AIDS/HIV N BPH N Urinary Tract Infection N Asthma Y Cardiac Disease Y Thyroid Disorder N Hepatitis N PCOS N Colon Cancer N Hernia N Colon/Rectal Disorders N Ostomy N Glaucoma N Pacemaker N Anesthesia Complications N Genitourinary Disease N Chronic Kidney Disease N Radiation Therapy N Bladder or Kidney Problems Y Back Injury N High Cholesterol N High PSA N Liver Disease N Nervous System Disorder Y Organ Transplant N Dialysis N Allergies/Hayfever Y False Teeth Y Chronic Obstructive Pulmonary Disease N Parkinson's Disease N Chemotherapy N Transplant N Anemia N Multiple Sclerosis N Chest Pain N Back Pain Y Proteinuria N Heart Attack (SC) N Mental Illness N Diabetes N Ovarian Cancer N Seizures/Epilepsy N Genitourinary problem(s) N Congestive Heart Failure (CHF) N Kidney Failure N Sleep Apnea Y Heart Disease Y Bronchitis N Hypertension N Gynecological History Statement/Question Response Female Hormone Problem N # of Pregnancies 1 Abnormal Periods Y # of Births 1 Could you be now? N Current Control Method iud Uterus/Ovaries Problem N Obstetrics History GPAL:G 0 P 0 0 0 0 Past Encounters Encounter ID Performer Location Encounter Start Date Encounter Closed Date Diagnosis/Indication Diagnosis SNOMED-CT Code Diagnosis ICD10 Code Diagnosis Note [id number] DARWIN BECERRA MD [facility] [address] [place] [address] 01/14/2025 13:40:40 01/14/2025 15:23:21 Female stress incontinence 71307167 N39.3 Evaluate current symptoms post-Bulka mid injection. Discussed partial improvemen t with current medication . Consider adjusting existing treatment strategies . Bulkamid 05/14/24 Urge incon tinence of urine 31519337 N39.41 Gemtesa for symptom control. Discuss alternativ e anticholin ergic options if necessary. Patient to monitor symptoms closely. Health Concerns Section Related Observation LastModified by Organization Detai ls LastModified Time None Recorded Concern Status LastModified by Organization Details LastModified Time None Recorded Payers Encounter Date Sequence Insurance Name Policy Number Policy Benavides Covered Member ID Benavides Member ID Guarantor Name 01/14/2025 1 [place] Faby Bustamante [id number] Faby Bustamante Notes Date Note Type Note Provider Name and Address Organization Details Recorded Time 01/14/2025 text/html The patient is a 44-year-old female presenting with urinary incontinence. Stress incontinence occurs with coughing and sneezing, resulting in minor leakage. Bulkomid injection history from April 2024 noted. Continues Myrbetriq for urge incontinence, reports frequency 6-7 times per day, nocturia 0-1 times per night. Urgency persists, but no burning or hematuria observed. DARWIN BECERRA MD [address] [place], [address], [facility] 01/17/2025 18:10:54 OBGyn Episode No OBEpisode recorded.
--- OUTSIDE RECORDS SUMMARY | 2025-02-16 08:54 | XMS_ITS | Data Portability ---
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 Start Vesicare to manage urge incontinence. Not available 01/10/2024 12:02:11 03/26/2024 03/26/2024 We reviewed patient's mixed urinary incontinence. Urge component is improved with Myrbetriq. She continues to have bothersome stress urinary incontinence. She has classic symptoms of female stress incontinence, possibly related to vaginal childbirth. We discussed options including mid urethral sling and Bulkamid injection. She wishes to proceed with Bulkamid injection. [email or web address] Not available 03/29/2024 18:31:39 05/14/2024 05/14/2024 DATE [...] Discharged home with instructions for outpatient follow-up. [email or web address] Not available 05/14/2024 11:12:50 06/25/2024 06/25/2024 [facility] Myrbetriq for medical management of lower urinary symptoms. [email or web address] Not available 07/05/2024 23:20:59 01/14/2025 01/14/2025 44-year-old fema le with history of stroke presents with urinary incontinence. Stress incontinence is linked to cough and sneeze episodes. Urge incontinence findings include urgency and frequency. Gemtesa continues but adjustment needed for symptom control. [email or web address] Not available 01/17/2025 18:10:22 Plan of Treatment Reminders Order Date Submit Date Provider Last Modified By Organization Details Last Modified Time Details Appointments RECHECK 2024 01:30P Jes BECERRA MD Not available Not available Not available Lab urinaly sis panel, auto 2024 025 [email or web address] [facility] Extended Services With [address], [place], [address], 01/14/2025 14:15:49 urinaly sis panel, auto 2023 024 [email or web address] [facility] Extended Services With [facility] [address] [place] [address] Dr Guerra, [place], [address], 07/01/2024 08:08:53 urinaly sis panel, auto 2023 024 [email or web address] [facility] Extended Services With [address] Guerra, [place], [address], 03/29/2024 18:31:42 urinaly sis panel, auto 2023 024 [email or web address] [facility] Extended Services With [address]erra, [place], [address], 01/10/2024 12:02:13 Referral None recorde d. Procedures None recorde d. Surgeries endosco pic injecti on of implant materia l into the submuco chet tissues of the urethra and/or bladder (SURG) 2023 024 [email or web address] [facility], [address] [facility] [facility] [address], [place], [address], 04/22/2024 20:23:38 Imaging None recorde d. Medication Orders Gemtesa 75 mg tablet 2024 025 [facility], [address] [place], [place], [id number], 01/26/2025 13:44:59 solifen acin 10 mg tablet 2023 024 [employer] [facility], [address] [place] [address], [id number], 01/09/2024 13:24:23 Patient TargetsNo targets recorded. Patient Instructions Encounter Date Encounter Id Patient Instructions Last Modified By Organization Details Last Modified Time 03/26/2024 [id number] learning about healthy weight [email or web address] Not available 03/29/2024 18:31:40 06/25/2024 [id number] learning about healthy weight Not available 07/01/2024 08:08:53 01/14/2025 [id number] - Continue takin g Gemtesa as prescribed. - Monitor urinary symptoms closely and report any changes. - Note any episodes of increased leakage or new symptoms. - If medication not covered at pharmacy, notify immediately. - Follow up if symptoms do not improve or worsen. [email or web address] Not available 01/17/2025 18:10:27 Reason for Referral None Reported. Results Created Date Observation Date Name Description Value Unit Range Abnormal Flag Note LastModifiedBy Organization Detail LastModifiedTime 01/10/20 24 01/10/2024 urina lysis panel , auto Unknown Analyte Clean Catch Not Available [facility] Extended Services With [address]erra, [place], [address], 01/10/2024 08:55:27 01/10/20 24 01/10/2024 urina lysis panel , auto Unknown Analyte Yellow Not Available [facility] Extended Services With [address]erra, [place], [address], 01/10/2024 08:55:27 01/10/20 24 01/10/2024 urina lysis panel , auto Unknown Analyte Clear Not Available [facility] Extended Services With [address] [place], [address], 01/10/2024 08:55:27 01/10/2001/10/2024 urina lysis panel , auto Unknown Analyte 1.010 Not Available [facility] Extended Services With [address] [place], [address], 01/10/2024 08:55:27 01/10/20 24 01/10/2024 urina lysis panel , auto Unknown Analyte 1.003- 1.035 Not Available [facility] Extended Services With [address] [place], [address], 01/10/2024 08:55:27 04/26/20 24 01/10/2024 urina lysis panel , auto Unknown Analyte 5.0 Not Available [facility] Extended Services With [address] [place], [address], 01/10/2024 08:55:27 01/10/20 24 01/10/2024 urina lysis panel , auto Unknown Analyte 5.0-8. 0 Not Available [facility] Extended Services With [address] [place], [address], 01/10/2024 08:55:27 01/10/20 24 01/10/2024 urina lysis panel , auto Unknown Analyte Negati ve Not Available [facility] Extended Services With [address] [place], [address], 01/10/2024 08:55:27 01/10/20 24 01/10/2024 urina lysis panel , auto Unknown Analyte Negati ve Not Available [facility] Extended Services With [address] [place], [address], 01/10/2024 08:55:27 01/10/20 24 01/10/2024 urina lysis panel , auto Unknown Analyte Negati ve Not Available [facility] Extended Services With [address] [place], [address], 01/10/2024 08:55:27 01/10/20 24 01/10/2024 urina lysis panel , auto Unknown Analyte Negati ve Not Available [facility] Extended Services With [address] [place], [address], 01/10/2024 08:55:27 01/10/20 24 01/10/2024 urina lysis panel , auto Unknown Analyte Negati ve Not Available [facility] Extended Services With [address] [place], [address], 01/10/2024 08:55:27 01/10/20 24 01/10/2024 urina lysis panel , auto Unknown Analyte Negati ve Not Available [facility] Extended Services With [address] [place], [address], 01/10/2024 08:55:27 01/10/20 24 01/10/2024 urina lysis panel , auto Unknown Analyte >1000 mg/dl Not Available [facility] Extended Services With [address] [place], [address], 01/10/2024 08:55:27 01/10/20 24 01/10/2024 urina lysis panel , auto Unknown Analyte Normal Not Available [facility] Extended Services With [address] [place], [address], 01/10/2024 08:55:27 01/10/20 24 01/10/2024 urina lysis panel , auto Unknown Analyte Negati ve Not Available [facility] Extended Services With [address] [place], [address], 01/10/2024 08:55:27 01/10/20 24 01/10/2024 urina lysis panel , auto Unknown Analyte Negati ve Not Available [facility] Extended Services With [address] [place], [address], 01/10/2024 08:55:27 01/10/20 24 01/10/2024 urina lysis panel , auto Unknown Analyte Normal Not Available [facility] Extended Services With [address] [place], [address], 01/10/2024 08:55:27 01/10/2007 0101/10/2024 urina lysis panel , auto Unknown Analyte Normal 1 mg/dl Not Available [facility] Extended Services With [address], [place], [address], 01/10/2024 08:55:27 01/10/20 24 01/10/2024 urina lysis panel , auto Unknown Analyte Negati ve Not Available [facility] Extended Services With [address] [place], [address], 01/10/2024 08:55:27 01/10/20 24 01/10/2024 urina lysis panel , auto Unknown Analyte Negati ve Not Available [facility] Extended Services With [address] [place], [address], 01/10/2024 08:55:27 01/10/20 24 01/10/2024 urina lysis panel , auto Unknown Analyte Negati ve Not Available [facility] Extended Services With [address] [place], [address], 01/10/2024 08:55:27 01/10/20 24 01/10/2024 urina lysis panel , auto Unknown Analyte Negati ve Not Available [facility] Extended Services With [address] [place], [address], 01/10/2024 08:55:27 03/26/20 24 03/26/2024 urina lysis panel , auto Unknown Analyte Clean Catch Not Available [facility] Extended Services With [address] [place], [address], 03/26/2024 15:22:33 03/26/20 24 03/26/2024 urina lysis panel , auto Unknown Analyte Yellow Not Available [facility] Extended Services With [address] [place], [address], 03/26/2024 15:22:33 03/26/20 24 03/26/2024 urina lysis panel , auto Unknown Analyte Clear Not Available [facility] Extended Services With [address]erra, [place], [address], 03/26/2024 15:22:33 03/26/20 24 03/26/2024 urina lysis panel , auto Unknown Analyte 1.020 Not Available [facility] Extended Services With [address]erra, [place], [address], 03/26/2024 15:22:33 03/26/20 24 03/26/2024 urina lysis panel , auto Unknown Analyte 1.003- 1.035 Not Available [facility] Extended Services With [address]erra, [place], [address], 03/26/2024 15:22:33 03/26/20 24 03/26/2024 urina lysis panel , auto Unknown Analyte 5.0 Not Available [facility] Extended Services With [address]erra, [place], [address], 03/26/2024 15:22:33 03/26/20 24 03/26/2024 urina lysis panel , auto Unknown Analyte 5.0-8. 0 Not Available [facility] Extended Services With [address]erra, [place], [address], 03/26/2024 15:22:33 03/26/20 24 03/26/2024 urina lysis panel , auto Unknown Analyte Negati ve Not Available [facility] Extended Services With [address]erra, [place], [address], 03/26/2024 15:22:33 03/26/20 24 03/26/2024 urina lysis panel , auto Unknown Analyte Negati ve Not Available [facility] Extended Services With [address] [place], [address], 03/26/2024 15:22:33 03/26/20 24 03/26/2024 urina lysis panel , auto Unknown Analyte Negati ve Not Available [facility] Extended Services With [address] [place], [address], 03/26/2024 15:22:33 03/26/20 24 03/26/2024 urina lysis panel , auto Unknown Analyte Negati ve Not Available [facility] Extended Services With [address] [place], [address], 03/26/2024 15:22:33 03/26/20 24 03/26/2024 urina lysis panel , auto Unknown Analyte Trace Not Available [facility] Extended Services With [address] [place], [address], 03/26/2024 15:22:33 03/26/20 24 03/26/2024 urina lysis panel , auto Unknown Analyte Negati ve Not Available [facility] Extended Services With [address] [place], [address], 03/26/2024 15:22:33 03/26/20 24 03/26/2024 urina lysis panel , auto Unknown Analyte >1000 mg/dl Not Available [facility] Extended Services With [address] [place], [address], 03/26/2024 15:22:33 03/26/20 24 03/26/2024 urina lysis panel , auto Unknown Analyte Normal Not Available [facility] Extended Services With [address] [place], [address], 03/26/2024 15:22:33 03/26/20 24 03/26/2024 urina lysis panel , auto Unknown Analyte Negati ve Not Available [facility] Extended Services With [address] [place], [place], [address], 03/26/2024 15:22:33 03/26/20 24 03/26/2024 urina lysis panel , auto Unknown Analyte Negati ve Not Available [facility] Extended Services With [address] [place], [address], 03/26/2024 15:22:33 03/26/20 24 03/26/2024 urina lysis panel , auto Unknown Analyte Normal Not Available [facility] Extended Services With [address] [place], [address], 03/26/2024 15:22:33 03/26/20 24 03/26/2024 urina lysis panel , auto Unknown Analyte Normal 1 mg/dl Not Available [facility] Extended Services With [address] [place], [address], 03/26/2024 15:22:33 03/26/20 24 03/26/2024 urina lysis panel , auto Unknown Analyte Negati ve Not Available [facility] Extended Services With [address] [place], [address], 03/26/2024 15:22:33 03/26/20 24 03/26/2024 urina lysis panel , auto Unknown Analyte Negati ve Not Available [facility] Extended Services With [address] [place], [address], 03/26/2024 15:22:33 03/26/20 24 03/26/2024 urina lysis panel , auto Unknown Analyte Negati ve Not Available [facility] Extended Services With [address]erra, [place], [address], 03/26/2024 15:22:33 03/26/20 24 03/26/2024 urina lysis panel , auto Unknown Analyte Negati ve Not Available [facility] Extended Services With [address]erra, [place], [address], 03/26/2024 15:22:33 05/14/20 24 05/14/2024 POTAS SIUM potassium 3.9 mmol/ L 3.4-5. 0 normal Not Available [facility] [address] [place], [address], 05/14/2024 07:14:03 05/14/20 24 05/14/2024 urina lysis panel , auto Unknown Analyte Clean Catch Not Available [facility] Schedule [address] [place], [address], 05/14/2024 07:16:20 05/14/20 24 05/14/2024 urina lysis panel , auto Unknown Analyte Yellow Not Available [facility] Surgery Schedule [address] [place], [address], 05/14/2024 07:16:20 05/14/20 24 05/14/2024 urina lysis panel , auto Unknown Analyte Clear Not Available [facility] Surgery Schedule [address] [place], [address], 05/14/2024 07:16:20 05/14/20 24 05/14/2024 urina lysis panel , auto Unknown Analyte 1.025 Not Available [facility] Surgery Schedule [address] [place], [address], 05/14/2024 07:16:20 05/14/20 24 05/14/2024 urina lysis panel , auto Unknown Analyte 6.0 Not Available [facility] Surgery Schedule [address] [place], [address], 05/14/2024 07:16:20 05/14/20 24 05/14/2024 urina lysis panel , auto Unknown Analyte Negati ve Not Available [facility] Schedule [address] [place], [address], 05/14/2024 07:16:20 05/14/20 24 05/14/2024 urina lysis panel , auto Unknown Analyte Negati ve Not Available [facility] Schedule [address] [place], [address], 05/14/2024 07:16:20 05/14/20 24 05/14/2024 urina lysis panel , auto Unknown Analyte Negati ve Not Available [facility] Schedule [address] [place], [address], 05/14/2024 07:16:20 05/14/20 24 05/14/2024 urina lysis panel , auto Unknown Analyte >1000 mg/dl Not Available [facility] Schedule [address] [place], [address], 05/14/2024 07:16:20 05/14/20 24 05/14/2024 urina lysis panel , auto Unknown Analyte Negati ve Not Available [facility] Schedule [address] [place], [address], 05/14/2024 07:16:20 05/14/20 24 05/14/2024 urina lysis panel , auto Unknown Analyte 1 mg/dl Not Available [facility] Schedule [address] [place], [address], 05/14/2024 07:16:20 05/14/20 24 05/14/2024 urina lysis panel , auto Unknown Analyte 1 mg/dl (+) Not Available [facility] Schedule [address] [place], [address], 05/14/2024 07:16:20 05/14/20 24 05/14/2024 urina lysis panel , auto Unknown Analyte 50 Honorio/ul Not Available [facility] Schedule [address] [facility], [place], [address], 05/14/2024 07:16:20 06/25/20 24 06/25/2024 urina lysis panel , auto Unknown Analyte Clean Catch Not Available [facility] Extended Services With [address], [place], [address], 06/25/2024 12:40:24 06/25/2006/25/2024 urina lysis panel , auto Unknown Analyte Yellow Not Available [facility] Extended Services With [address], [place], [address], 06/25/2024 12:40:24 06/25/20 24 06/25/2024 urina lysis panel , auto Unknown Analyte Clear Not Available [facility] Extended Services With [address], [place], [address], 06/25/2024 12:40:24 06/25/20 24 06/25/2024 urina lysis panel , auto Unknown Analyte 1.015 Not Available [facility] Extended Services With [address], [place], [address], 06/25/2024 12:40:24 06/25/20 24 06/25/2024 urina lysis panel , auto Unknown Analyte 1.003- 1.035 Not Available [facility] Extended Services With [address], [place], [address], 06/25/2024 12:40:24 06/25/20 24 06/25/2024 urina lysis panel , auto Unknown Analyte 5.0 Not Available [facility] Extended Services With [address] [place], [address], 06/25/2024 12:40:24 06/25/20 24 06/25/2024 urina lysis panel , auto Unknown Analyte 5.0-8. 0 Not Available [facility] With [address] [place], [place], [address], 06/25/2024 12:40:24 06/25/2006/25/2024 urina lysis panel , auto Unknown Analyte Negati ve Not Available [facility] Extended Services With [address] [place], [place], [address], 06/25/2024 12:40:24 06/25/20 24 06/25/2024 urina lysis panel , auto Unknown Analyte Negati ve Not Available [facility] Extended Services With [address], [place], [address], 06/25/2024 12:40:24 06/25/20 24 06/25/2024 urina lysis panel , auto Unknown Analyte Negati ve Not Available [facility] Extended Services With [address], [place], [address], 06/25/2024 12:40:24 06/25/20 24 06/25/2024 urina lysis panel , auto Unknown Analyte Negati ve Not Available [facility] Extended Services With [address], [place], [address], 06/25/2024 12:40:24 06/25/2006/25/2024 urina lysis panel , auto Unknown Analyte Negati ve Not Available [facility] Extended Services With [address], [place], [address], 06/25/2024 12:40:24 06/25/2006/25/2024 urina lysis panel , auto Unknown Analyte Negati ve Not Available [facility] Extended Services With [address], [place], [address], 06/25/2024 12:40:24 06/25/2006/25/2024 urina lysis panel , auto Unknown Analyte >1000 mg/dl Not Available [facility] Extended Services With [address] [place], [address], 06/25/2024 12:40:24 06/25/2006/25/2024 urina lysis panel , auto Unknown Analyte Normal Not Available [facility] Extended Services With [address] [place], [address], 06/25/2024 12:40:24 06/25/2006/25/2024 urina lysis panel , auto Unknown Analyte Negati ve Not Available [facility] Extended Services With [address] [place], [address], 06/25/2024 12:40:24 06/25/20 24 06/25/2024 urina lysis panel , auto Unknown Analyte Negati ve Not Available [facility] Extended Services With [address] [place], [address], 06/25/2024 12:40:24 06/25/2006/25/2024 urina lysis panel , auto Unknown Analyte Normal Not Available [facility] Extended Services With [address] [place], [address], 06/25/2024 12:40:24 06/25/2006/25/2024 urina lysis panel , auto Unknown Analyte Normal 1 mg/dl Not Available [facility] Extended Services With [address] [place], [address], 06/25/2024 12:40:24 06/25/20 24 06/25/2024 urina lysis panel , auto Unknown Analyte Negati ve Not Available [facility] Extended Services With [address], [place], [address], 06/25/2024 12:40:24 06/25/20 24 06/25/2024 urina lysis panel , auto Unknown Analyte Negati ve Not Available [facility] Extended Services With [address] [place], [address], 06/25/2024 12:40:24 06/25/20 24 06/25/2024 urina lysis panel , auto Unknown Analyte Negati ve Not Available [facility] Extended Services With [address] [place], [address], 06/25/2024 12:40:24 06/25/20 24 06/25/2024 urina lysis panel , auto Unknown Analyte Negati ve Not Available [facility] Extended Services With [address], [place], [address], 06/25/2024 12:40:24 01/15/20 25 01/14/2025 urina lysis panel , auto Unknown Analyte Clean Catch Not Available [facility] Extended Services With [address], [place], [address], 01/14/2025 14:09:19 01/15/20 25 01/14/2025 urina lysis panel , auto Unknown Analyte Yellow Not Available [facility] Extended Services With [address], [place], [address], 01/14/2025 14:09:19 01/15/20 25 01/14/2025 urina lysis panel , auto Unknown Analyte Clear Not Available [facility] Extended Services With [address], [place], [address], 01/14/2025 14:09:19 01/15/20 25 01/14/2025 urina lysis panel , auto Unknown Analyte 1.020 Not Available [facility] Extended Services With [address] [place], [address], 01/14/2025 14:09:19 01/15/2001/14/2025 urina lysis panel , auto Unknown Analyte 1.003 - 1.030 Not Available [facility] Extended Services With [address] [place], [address], 01/14/2025 14:09:19 01/15/2001/14/2025 urina lysis panel , auto Unknown Analyte 6.5 Not Available [facility] Extended Services With [address] [place], [address], 01/14/2025 14:09:19 01/15/2001/14/2025 urina lysis panel , auto Unknown Analyte 5.0 - 8.0 Not Available [facility] With [address] [place], [address], 01/14/2025 14:09:19 01/15/2001/14/2025 urina lysis panel , auto Unknown Analyte 25 Beth/uL Not Available [facility] Extended Services With [address] [place], [address], 01/14/2025 14:09:19 01/15/2001/14/2025 urina lysis panel , auto Unknown Analyte Negati ve Not Available [facility] Services With [address] [place], [address], 01/14/2025 14:09:19 01/15/20 25 01/14/2025 urina lysis panel , auto Unknown Analyte Negati ve Not Available [facility] Services With [address], [place], [address], 01/14/2025 14:09:19 01/15/20 25 01/14/2025 urina lysis panel , auto Unknown Analyte Negati ve Not Available [facility] Extended Services With [address] [place]erra, [place], [address], 01/14/2025 14:09:19 01/15/2001/14/2025 urina lysis panel , auto Unknown Analyte Negati ve Not Available [facility] With [address] [place], [address], 01/14/2025 14:09:19 01/15/20 25 01/14/2025 urina lysis panel , auto Unknown Analyte Negati ve Not Available [facility] With [address] Guerra, [place], [address], 01/14/2025 14:09:19 01/15/20 25 01/14/2025 urina lysis panel , auto Unknown Analyte Normal Not Available [facility] Extended Services With [address] Guerra, [place], [address], 01/14/2025 14:09:19 01/15/20 25 01/14/2025 urina lysis panel , auto Unknown Analyte Normal Not Available [facility] Extended Services With [address] [place], [address], 01/14/2025 14:09:19 01/15/20 25 01/14/2025 urina lysis panel , auto Unknown Analyte Negati ve Not Available [facility] With [address] Guerra, [place], [address], 01/14/2025 14:09:19 01/15/2001/14/2025 urina lysis panel , auto Unknown Analyte Negati ve Not Available [facility] [place] [address] [place], [address], 01/14/2025 14:09:19 01/15/2001/14/2025 urina lysis panel , auto Unknown Analyte Normal Not Available [facility] Extended Services With [address] [place], [address], 01/14/2025 14:09:19 01/15/2001/14/2025 urina lysis panel , auto Unknown Analyte Normal Not Available [facility] Extended Services With [address] [place], [address], 01/14/2025 14:09:19 01/15/2001/14/2025 urina lysis panel , auto Unknown Analyte Negati ve Not Available [facility] With [address] [place], [address], 01/14/2025 14:09:19 01/15/2001/14/2025 urina lysis panel , auto Unknown Analyte Negati ve Not Available [facility] With [address] [place], [address], 01/14/2025 14:09:19 01/15/2001/14/2025 urina lysis panel , auto Unknown Analyte Negati ve Not Available [facility] With [address] [place], [address], 01/14/2025 14:09:19 01/15/2001/14/2025 urina lysis panel , auto Unknown Analyte Negati ve Not Available [email or web address] With [address] Guerra, [place], [address], 01/14/2025 14:09:19 Result Notes None recorded. Medical [...] Updated DateTime 01/09/2024 162.56 cm 36.2 kg/m2 61740.99 g Georgina Trejo [facility] 01/10/2024 08:55:06 Date Recorded Body height Body mass index (BMI) Body weight Provider Name and Address Organization Details Last Updated DateTime 01/14/2025 162.56 cm 28.3 kg/m2 81132.74 dagmar Dubose [facility] 01/14/2025 14:08:36 Date Recorded Body height Body mass index (BMI) Body weight Provider Name and Address Organization Details Last Updated DateTime 03/26/2024 162.56 cm 34.3 kg/m2 98771.47 [facility] 03/26/2024 15:21:07 Date Recorded Body height Body mass index (BMI) Body weight Provider Name and Address Organization Details Last Updated DateTime 06/25/2024 162.56 cm 30 kg/m2 36970.66 dagmar [facility] 06/25/2024 18:12:00 Social History Question Answer Notes LastModified by [employer] ion Details LastModified Time Tobacco Smoking Status Former Smoker quit in 2020 Georgina Trejo [facility] 11/26/2023 11:10:11 What Was The Date Of Your Most Recent Tobacco Screening? 01/14/2025 [email or web address] Information not available 01/14/2025 Sex: Female Functional Status None recorded. Mental Status None recorded. Family History Relationship Description Onset Age of this Age Resolved Age Notes LastModified by Organization Details LastModified Time Mother Diabetes mellitus [email or web address] Not available 2023 11:09:41 Mother Family history of malignant neoplasm [email or web address] Not available 2023 11:09:54 Maternal Grandfather Diabetes mellitus [email or web address] Not available 2023 11:09:41 Maternal Grandfather Family history of malignant neoplasm Not available 2023 11:09:54 Maternal Grandmother Diabetes mellitus [email or web address] Not available 2023 11:09:41 Paternal Grandmother Family history of malignant neoplasm [email or web address] Not available 2023 11:09:54 Medical History Condition Response Coronary Artery Disease Y Gout N Other N Kidney Cyst N Kidney Stones N Enlarged Prostate N Heart Arrhythmia N Head Trauma/Injury N Erectile Dysfunction N Emphysema N Sexually Transmitted Disease N Depression N Pneumonia N Incontinence Y Prostate Problems N Cancer Prostate N Paralysis N Anxiety Disorder Y Hemorrhoids N Obesity N Arthritis Y Infertility N Acid Reflux (GERD) N Hematuria N Cancer N Stroke Y Neck Injury N Previous Radiation Therapy? N Neurologic Disorder N Kidney Disease N Heart Conditions Y Kidney or Bladder Problems N Urinary Problems N Constipation N Brain Injury N Ulcers N Prostate Hypertrophy N Low Testosterone N Tuberculosis N Previous Chemotherapy? N AIDS/HIV N BPH N Urinary Tract Infection N Asthma Y Cardiac Disease Y Thyroid Disorder N Hepatitis N PCOS N Colon Cancer N Hernia N Colon/Rectal Disorders N Ostomy N Glaucoma N Pacemaker N Anesthesia Complications N Genitourinary Disease N Radiation Therapy N Chronic Kidney Disease N Bladder or Kidney Problems Y Back Injury N High Cholesterol N High PSA N Nervous System Disorder Y Liver Disease N Organ Transplant N Dialysis N Allergies/Hayfever Y False Teeth Y Chronic Obstructive Pulmonary Disease N Parkinson's Disease N Chemotherapy N Transplant N Anemia N Multiple Sclerosis N Chest Pain N Back Pain Y Proteinuria N Heart Attack (NC) N Mental Illness N Ovarian Cancer N Diabetes N Seizures/Epilepsy N Genitourinary problem(s) N Congestive [...] SNOMED-CT Code Diagnosis ICD10 Code Diagnosis Note [id number] DARWIN BECERRA MD [facility] [address] [facility] [place] [address] 11/26/2023 09:14:38 11/26/2023 10:30:27 Urge incontinence of urine 48195388 N39.41 Overactive urinary bladder 866268055 N32.81 [id number] [facility] [address] [address] 01/09/2024 12:57:55 01/11/2024 04:04:52 Urge incontinence of urine 36309606 N39.41 Overactive urinary bladder 192573925 N32.81 [id number] MD [place] [address],[place] [address] 03/26/2024 14:02:04 03/26/2024 19:09:31 Overactive urinary bladder 596250337 N32.[address] ess incontinence 67488618 N39.3 [id number] DARWIN BECERRA MD SURGERY SCHEDULE [address] [place] [address] 05/14/2024 06:09:58 05/14/2024 06:11:27 [id number] [facility] [address] [place] [address] ,[place] [address] 06/25/2024 14:14:48 06/25/2024 18:44:49 Overactive urinary bladder 944055695 N32.81 bulkamid 05/14/24 Female str ess incontinence 34039378 N39.3 bulkamid 05/14/24 [id number] [facility] [address] [address] 01/14/2025 13:40:40 01/14/2025 15:23:21 Female stress incontinence 11074828 N39.3 Evaluate current symptoms post-Bulka mid injection. Discussed partial improvemen t with current medication . Consider adjusting existing treatment strategies . Bulkamid 05/14/24 Urge incon tinence of urine 33637898 N39.41 Gemtesa for symptom control. Discuss alternativ e anticholin ergic options if necessary. Patient to monitor symptoms closely. Health Concerns Section Related Observation LastModified by Organization Detai ls LastModified Time None Recorded Concern Status LastModified by Organization Details LastModified Time None Recorded Advance Directives Directive None Recorded Payers Insurance Date Sequence Insurance Name Policy Number Policy Benavides Covered Member ID Benavides Member ID Guarantor Name 01/19/2025 MEDICARE-[employer] (MEDICARE) Faby Bustamante [id number] Faby Bustamante 01/19/2025 1 [employer] (MEDICARE REPLACEMENT /ADVANTAGE - PPO) [id number] Faby Bustamante [id number] Faby Bustamante 05/12/2024 1 [place] Faby Bustamante [id number] Faby Bustamante 05/12/2024 2 AETNA [facility] (MEDICAID HMO) Faby Sahu [id number] Faby Bustamante 10/27/2024 1 [employer] (MEDICARE REPLACEMENT /ADVANTAGE - HMO) Faby Bustamante [id number] Faby Bustamante 01/18/2025 1 [place] Faby Bustamante [id number] Faby Bustamante Notes Date Note Type Note Provider Name and Address Organization Details Recorded Time 01/09/2024 text/html 43-year-old isela toribio in the office [...] have symptoms of urgency. DARWIN BECERRA MD [address] [place] [address], [address], [facility] 01/10/2024 12:02:29 03/26/2024 text/html 43-year-old isela [...] one child, vaginal delivery. DARWIN BECERRA MD [address] [place] [address], [address], [facility] 03/29/2024 18:31:54 06/25/2024 text/html 43-year-old isela [...] to manage urge incontinence. DARWIN BECERRA MD [address] [place], [address], [facility] 07/05/2024 23:21:42 01/14/2025 text/html The patient is a 44-year-old female presenting with urinary incontinence. Stress incontinence occurs with coughing and sneezing, resulting in minor leakage. Bulkomid injection history from April 2024 noted. Continues Myrbetriq for urge incontinence, reports frequency 6-7 times per day, nocturia 0-1 times per night. Urgency persists, but no burning or hematuria observed. DARWIN BECERRA MD [address] [place], [address], [facility] 01/17/2025 18:10:54 OBGyn Episode No OBEpisode recorded.
--- OUTSIDE RECORDS SUMMARY | 2025-02-16 08:55 | XMS_ITS | Data Portability ---
Author Organization [facility] [place] Address [address] [place] [address] Assessment No assessment recorded. Plan of Treatment Reminders Order Date Submit Date Provider Last Modified By Organization Details Last Modified Time Details Appointments None recorded. Lab urinalysis , dipstick [email or web address] [facility], [address] [place] [address], [address], 10:39:00 Referral None recorded. Procedures None recorded. Surgeries None recorded. Imaging None recorded. Medication Orders None recorded. Patient TargetsNo targets recorded. Patient InstructionsNo instructions recorded. Reason for Referral None Reported. Results Created Date Observation Date Name Description Value Unit Range Abnormal Flag Note LastModifiedBy Organization Detail LastModifiedTime 10/04/1910/04/2022 urina lysis , dipst ick Leukocytes (reference range) negati ve Not Available [facility] [address] [place] [address], [address], 10/04/2022 09:21:05 10/04/19 23 10/04/2022 urina lysis , dipst ick Nitrite (reference range:) negati ve Not Available [facility] [address] [place] [address], [address], 10/04/2022 09:21:05 10/04/19 23 10/04/2022 urina lysis , dipst ick Urobilinogen (reference range) 1 Not Available [address], [address], 10/04/2022 09:21:05 10/04/19 23 10/04/2022 urina lysis , dipst ick Protein (reference range) negati ve Not Available [address], [address], 10/04/2022 09:21:05 10/04/19 23 10/04/2022 urina lysis , dipst ick pH (reference range 5-8.5) 6.5 Not Available [address], [address], 10/04/2022 09:21:05 10/04/19 23 10/04/2022 urina lysis , dipst ick Blood (reference range:) negati ve Not Available [address], [address], 10/04/2022 09:21:05 10/04/19 23 10/04/2022 urina lysis , dipst ick Specific [place] (reference range) 1.025 Not Available [address], [address], 10/04/2022 09:21:05 10/04/19 23 10/04/2022 urina lysis , dipst ick Ketone (reference range) negati ve Not Available [address], [address], 10/04/2022 09:21:05 10/04/19 23 10/04/2022 urina lysis , dipst ick Bilirubin (reference range) negati ve Not Available [address], [address], 10/04/2022 09:21:05 10/04/19 23 10/04/2022 urina lysis , dipst ick Glucose (reference range) negati ve Not Available [facility] [address] [place] [address], [place], [address], 10/04/2022 09:21:05 Result Notes None recorded. Problems Name Problem SNOMED Code Status Onset Date Resolution Date Notes Provider Name and Address Organization Details Recorded Time Acute stroke 8349240284492 04 Active 2022 Arcelia fair, [facility] - [facility] [place] [facility] [place] 3 09:00:03 Environment al allergy 140439275 Active 2022 Arcelia fair, [place] - [facility] [place] [facility] [place] 3 09:00:11 Asthma 713589036 Active 2022 Arcelia fair, [facility] - [facility] [place] [facility] [place] 3 09:00:19 Anxiety 53286706 Active 2022 Arcelia fair, ROSCOE Valdez [facility] [place] [facility] [place] 3 09:00:28 Problem Notes None recorded. Procedures Surgical History Date Name Laterality Status Provider Name and Address Organization Details Recorded Time closure of patent foramen ovale completed Arcelia Valdez [facility] [place] [facility] [place] 10/04/2022 09:01:09 Imaging Results None recorded. Procedure [...] Not Available No t Available amoxicillin 500 mg-potassiu m clavulanate 125 mg tablet TAKE 1 [...] Updated DateTime 10/04/2022 162.56 cm 37.1 kg/m2 87209.95 g 97.7 [degF] Arcelia Valeriy [facility] [place] 10/04/2022 08:57:58 Social History None recorded. Functional Status Question Answer Note LastModified by Organization D etails LastModified Time What is your level of alcohol consumption? None [email or web address] Information not available 10/04/2022 Mental Status None recorded. Family History Relationship Description Onset Age of this Age Resolved Age Notes LastModified by Organization Details LastModified Time Brother Family history unknown Not available 2022 09:00:48 Father Family history unknown [email or web address] Not available 2022 09:00:48 Mother Family history unknown [email or web address] Not available 2022 09:00:48 Medical History No medical history recorded. Gynecological HistoryNo gynecological history recorded. Obstetrics History GPAL:G 0 P 0 0 0 0 Past Encounters Encounter ID Performer Location Encounter Start Date Encounter Closed Date Diagnosis/Indication Diagnosis SNOMED-CT Code Diagnosis ICD10 Code Diagnosis Note [id number] Noe Dupont Jr, MD [facility] [address] [place] [address] 10/04/2022 08:38:28 10/04/2022 09:20:22 Urinary incontinence [id number] R32 Patient with history of mild stress [...] Member ID Benavides Member ID Guarantor Name 11/04/2022 1 [employer] [facility] (MEDICAID HMO) Faby Bustamante [id number] Faby Bustamante Notes Date Note Type Note Provider Name and Address Organization Details Recorded Time 10/04/2022 text/html Patient is a 42-year-old white female with a history of stress incontinence. She was previously seen at [facility]. She was last seen in November [...] of the aspirin. Noe Dupont Jr, MD [address] [place] [address], [address], [place], [address], [place] [facility] [place] [facility] [place] 10/04/2022 10:14:04 OBGyn Episode No OBEpisode recorded.
[2025-02-16 09:27] VITALS: BP 100/59; PULSE 94; RESP 14; O2SAT 100; BMI 27.1
--- NOTE | 2025-02-16 09:27 | EXP.PAIN.SOA ---
[facility] Disclaimer: The information contained in this section may have been updated after the patient was seen, as this information can be updated by other users. Medical History Coronary arteritis Depression Anxiety Hyperlipidemia Migraines Asthma CVA (cerebral vascular accident) Surgical History PFO (patent foramen ovale) Family History Mother Cancer Grandmother Stroke Grandfather Stroke Social History Smoking Status: Never smoker alcohol intake: never substance use type: denies use current occupational status: unemployed Travel in the last 8 weeks?: None household members: significant other and children housing: other PM Subjective & Objective Subjective Subjective:: Patient is a pleasant 44-year-old female who presents today for 2-week follow-up. She rates her pain today a 6 out of 10. She denies any new falls or injuries. Patient does state from our last visit the pain has increased back. Patient states she is still having all the pain along the left side and does have numbness that runs down his entire extremity to her foot. Patient does state that it is constant and does interfere with her ability to perform activities of daily living such as cooking and cleaning. Patient is interested in any help we may be able to provide. Patient has continued conservative therapy with no additional improvement. Patient was given methocarbamol 500 mg twice a day from her last appointment. She does state that this did seem to help and denies any side effects. She is also prescribed compounded cream. Her Bertin has been reviewed and is appropriate. Review of Systems: General: No recent weight changes, no fever, no sleep disturbances Respiratory: No cough, no shortness of air, no recurring pulmonary infections Cardiovascular/peripheral vascular: No chest pain, no palpitations, no edema, no shortness of breath Gastrointestinal: No new onset incontinence, normal bowel movements reported Genitourinary: No new onset incontinence Musculoskeletal: Low back pain, left leg pain Psychiatric: [Normal mood/affect] Neurological: [Denies weakness in extremities], [denies balance issues] Pain at rest (0-10 scale): 6 Objective Objective:: Physical Exam: General: Alert and oriented x3, no acute distress, pleasant and cooperative Lungs: Respirations even and unlabored, symmetrical chest expansion Eyes: PERRL Musculoskeletal: Flexion and extension of lumbar [spine] somewhat guarded secondary to pain, [antalgic gait noted] positive left leg raise with decreased sensation to light touch and decreased reflexes Neurological: Speech clear, no gross sensory deficit Has patient had previous pain injection?: No Conservative treatment options previously tried: Home exercise plan Length of treatment: Longer than 12 weeks and Physical Therapy Length of treatment: Made worse Meds Home Medications and Allergies Home Medications ?Medication ?Instructions ?Recorded ?Confirmed ?Type atorvastatin 40 mg tablet 40 mg PO HS 03/09/21 01/11/25 History clopidogrel 75 mg tablet 75 mg PO DAILY 03/09/21 01/11/25 History propranolol 80 mg tablet 80 mg PO BID 06/08/22 01/11/25 History rimegepant 75 mg disintegrating 75 mg PO Q OTHER DAY 06/08/22 01/11/25 History tablet (Nurtec ODT) tizanidine 4 mg tablet 4 mg PO BID PRN Pain 06/08/22 01/11/25 History paroxetine HCl 40 mg tablet (Paxil) 40 mg PO DAILY #30 tabs 10/03/22 01/11/25 Rx atogepant 60 mg tablet (Qulipta) 60 mg PO DAILY 01/27/24 01/11/25 History dapagliflozin propanediol 10 mg 10 mg PO DAILY 01/27/24 01/11/25 History tablet (Farxiga) gabapentin 600 mg tablet 600 mg PO DAILY 01/27/24 01/11/25 History levonorgestrel (Mirena) 21 mcg intrauterine DIRECTED 01/27/24 01/11/25 History CONTROLL ropinirole 0.25 mg tablet 0.25 mg PO DAILY 01/27/24 01/11/25 History solifenacin 10 mg tablet 10 mg PO DAILY 01/27/24 01/11/25 History trazodone 100 mg tablet 100 mg PO DAILY 01/27/24 01/11/25 History furosemide 20 mg tablet 20 mg PO DAILY 04/22/24 01/11/25 History semaglutide (weight loss) 1 mg/0.5 1 mg SQ DIRECTED Diabetes 08/07/24 04/28/25 History mL subcutaneous pen injector (WegovMobi Rider) methocarbamol 500 mg tablet 500 mg PO BID #28 tabs 01/11/25 Rx New Prescriptions to Start Prescriptions: Allergies Allergy/AdvReac Type Severity Reaction Status Date / Time No Known Allergies Allergy Verified 04/22/24 15:43 Assessment and Plan *Assessment and plan (1) Lumbar spinal stenosis: Status: Acute Qualifiers: Neurogenic claudication status: with neurogenic claudication Qualified Code(s): M48.062 - Spinal stenosis, lumbar region with neurogenic claudication Category: Medical Code(s): M48.061 - Spinal stenosis, lumbar region without neurogenic claudication (2) Degenerative disc disease, lumbar: Status: Acute Category: Medical Code(s): M51.369 - Other intervertebral disc degeneration, lumbar region without mention of lumbar back pain or lower extremity pain (3) Lumbar radiculopathy: Status: Acute Category: Medical Code(s): M54.16 - Radiculopathy, lumbar region Plan Patient is experiencing worsening pain in her low back with numbness and tingling into her left leg. Patient did have limited range of motion of her lumbar spine with a positive left leg raise. I did discuss with patient that I do believe they would benefit from a transforaminal epidural steroid injection. Risk and benefits were discussed with patient and the patient would like to proceed forward with this plan of care. Patient is on Plavix written by Dr. Medina at [place]. We will reach out to this provider and confirm that she can stop this medication prior to this injection. Patient acknowledges understanding. Patient has tried and failed conservative therapy including oral medications, heat and ice, topicals and physical therapy as well as continued at home stretching exercise for longer than 12 that was physician guided. Patient has had chronic back pain for longer than 6 months. Patient has not had any lumbar epidurals from our office. We will schedule the patient for left transforaminal epidural steroid injection L4-L5 L5-S1 under fluoroscopy. I will also send in refills on her methocarbamol. Patient has been instructed to contact the clinic with any concerns before the next appointment. Dr. Cruz has reviewed this note and agrees with this plan of care. This note was dictated using voice recognition software and make contain errors or omissions. All injections are used with Lidocaine, Bupivacaine and dexamethasone. Occasionally urine drug screen is needed to verify patient's compliance with our office pain contract. This is ordered based off specific treatments related to chronic pain with the potential to abuse certain medications.
== END 2025-02-16 23:59 | disposition home or self-care (01) ==
PROVIDERS: PCP Nurse Practitioner; Visit Provider Nurse Practitioner Family
DX: M51.16 Intervertebral disc disorders with radiculopathy, lumbar region (principal); Z79.899 Other long term (current) drug therapy
CPT/HCPCS: 99212; G0463